=== PATIENT | male | born 1960 | race Caucasian/White ===

== ENCOUNTER 2021-03-19 07:16 | Outpatient (RCR) | payer OTHER, SELFPAY ==
[2021-03-05 10:00] VITALS: BMI 30.3
== END 2021-04-01 15:07 | disposition home or self-care (01) ==
LOC: ANHWOC 07:16
PROVIDERS: PCP Internal Medicine; Visit Provider Internal Medicine
DX: T22.21 Burn of second degree of forearm (principal)
CPT/HCPCS: 99211; 99212; A9270; G0463

== ENCOUNTER 2021-10-10 00:41 | Day surgery (SDC) | payer OTHER, SELFPAY ==
[2021-09-24 15:48] VITALS: BMI 29.6
[2021-10-10 07:15] VITALS: BP 116/77; PULSE 93; RESP 18; TEMP 36.4; O2SAT 98
[2021-10-10] MEDS: LACTATED RINGERS 1,000 ML 150 ML IV CONT (07:26)
--- NOTE | 2021-10-10 07:56 | P.CONGI_ITS ---
Assessment and Plan Assessment and plan (1) Encounter for screening colonoscopy: Code(s): Z12.11 - Encounter for screening for malignant neoplasm of colon Status: Acute Assessment and Plan: Patient presents today for screening colonoscopy. Appears to be at average risk for colon polyps. Further recommendations will be given after endoscopy. GI Consult Note Consult date/time: 10/10/21 07:56 Reason for consult: Neoplasia screening. HPI: Paras Coreas III is a 61 year old male Presents for screening colonoscopy. Patient's current weight appetite and bowel movements are normal. He denies abdominal pain. He has had no bleeding. Family history is significant on [place] has had colon cancer. Patient presents today for screening colonoscopy. Review of Systems Review of Systems: Review of systems noncontributory. [facility] Surgical History Surgical History History of back surgery October 2019 Family History Family History Sibling Patient's sister is in good health Patient's brother is in good health Father Cerebrovascular accident Family history of heart disease in male family member before age 55 Patient's father is Mother Patient's mother is Social History Social History Smoking status: Never smoker Second hand tobacco smoke exposure: No Alcohol intake: never Substance use: never Substance use type: does not use Living arrangements: alone Spiritual care concerns: No Meds Home Medications and Allergies Home Medications Medication Instructions Recorded Confirmed Type multivitamin (Multiple Vitamins 1 tablet PO DAILY 04/12/19 10/10/21 History tablet) clonazepam 0.5 mg tablet 0.5 mg PO DAILY PRN Anxiety 02/26/21 10/10/21 History hydroxyzine HCl 25 mg tablet 25 mg PO BID PRN Allergy Symptoms 02/26/21 10/10/21 History pantoprazole 40 mg tablet,delayed 40 mg PO QAM #90 tabs 06/30/21 10/10/21 Rx release (Protonix) naproxen 500 mg tablet 500 mg PO BID #60 tabs 08/28/21 10/10/21 Rx quetiapine 100 mg tablet (Seroquel) 200 mg PO QHS 08/28/21 10/10/21 History terbinafine HCl 250 mg tablet 250 mg PO DAILY 08/28/21 10/10/21 History lisinopril 40 mg tablet 40 mg PO DAILY #90 tabs 09/11/21 10/10/21 Rx finasteride 5 mg tablet 5 tablet PO DAILY 09/24/21 10/10/21 History Allergies Allergy/AdvReac Type Severity Reaction Status Date / Time No Known Allergies Allergy Verified 10/10/21 07:14 Vital Signs Vital Signs - 24 hr 10/10/21 07:15 Temperature 97.5 F L Pulse Rate 93 Respiratory Rate 18 Blood Pressure 116/77 Pulse Oximetry 98 Oxygen Delivery Room Air Exam Narrative: Physical exam reveals patient to be alert. Vital signs stable. HEENT exam is unremarkable. Patient is anicteric. Lungs are clear to auscultation and percussion. Heart is without murmur or extra sounds. Abdominal exam bowel sounds present soft nontender with no organomegaly. Digital external rectal exam is normal.
--- NOTE | 2021-10-10 08:12 | WPDANESEPPF ---
Anes - Initial Pre Proc Eval Procedure: Operation Date: 10/10/21 08:30 Proposed Procedures p Screening Colonoscopy - Davy Lucio MD Date/Time: 10/10/21 08:12 Surgeon: Davy Lucio MD Pre Op Diagnosis: neoplasm screening Patient Data Age: 61 Gender: M Height: 1.75 m Weight: 89.4 kg Last Vital Signs Temp 97.5 F L 10/10/21 07:15 Pulse 93 10/10/21 07:15 Resp 18 10/10/21 07:15 BP 116/77 10/10/21 07:15 Pulse Ox 98 10/10/21 07:15 O2 Del Method Room Air 10/10/21 07:15 Allergies Allergy/AdvReac Type Severity Reaction Status Date / Time No Known Allergies Allergy Verified 10/10/21 07:14 Home Medications Medication Instructions Recorded Confirmed Type multivitamin (Multiple Vitamins 1 tablet PO DAILY 04/12/19 10/10/21 History tablet) clonazepam 0.5 mg tablet 0.5 mg PO DAILY PRN Anxiety 02/26/21 10/10/21 History hydroxyzine HCl 25 mg tablet 25 mg PO BID PRN Allergy Symptoms 02/26/21 10/10/21 History pantoprazole 40 mg tablet,delayed 40 mg PO QAM #90 tabs 06/30/21 10/10/21 Rx release (Protonix) naproxen 500 mg tablet 500 mg PO BID #60 tabs 08/28/21 10/10/21 Rx quetiapine 100 mg tablet (Seroquel) 200 mg PO QHS 08/28/21 10/10/21 History terbinafine HCl 250 mg tablet 250 mg PO DAILY 08/28/21 10/10/21 History lisinopril 40 mg tablet 40 mg PO DAILY #90 tabs 09/11/21 10/10/21 Rx finasteride 5 mg tablet 5 tablet PO DAILY 09/24/21 10/10/21 History Patient hx anesthesia problems: none Family hx anesthesia problems: none Results Review: All pre-operative results and documents have been reviewed as part of the pre-operative evaluation. [facility] Surgical History Surgical History History of back surgery October 2019 Family History Family History Sibling Patient's sister is in good health Patient's brother is in good health Father Cerebrovascular accident Family history of heart disease in male family member before age 55 Patient's father is Mother Patient's mother is Social History Social History Smoking status: Never smoker Second hand tobacco smoke exposure: No Alcohol intake: never Substance use: never Substance use type: does not use Living arrangements: alone Spiritual care concerns: No Anes - Eval Final PreProcedure Day of Procedure 10/10/21 08:12 Patient weight: overweight Heart: regular rate and rhythm Lungs: clear to auscultation Airway: Mallampati scale class II Neurological: alert and oriented Last oral intake: >/= 8 hours ASA classification: II Emergent: no Anesthetic plan: proceed Anesthesia type and monitoring: general GIVS and standard monitoring Results Review: All pre-operative results and documents have been reviewed as part of the pre-operative evaluation. Informed Consent: The patient's anesthetic plan and its attendant risks and benefits were discussed with the patient/family/POA. Questions were solicited and answers provided to the satisfaction of the patient/family/POA.
[2021-10-10 09:03] VITALS: BP 115/70; PULSE 73; RESP 20; O2SAT 97
[2021-10-10 09:13] VITALS: BP 116/75; PULSE 72; RESP 23; O2SAT 96
[2021-10-10 09:23] VITALS: BP 125/81; PULSE 74; RESP 24; O2SAT 97
== END 2021-10-10 09:33 | disposition home or self-care (01) ==
PROVIDERS: PCP Internal Medicine; Visit Provider Internal Medicine Gastroenterology
PROC: 0DJD8ZZ Inspection of Lower Intestinal Tract, Via Natural or Artificial Opening Endoscopic (ICD-10-PCS; CPT 45378; principal; 2021-10-10 08:30)
DX: Z12.11 Encounter for screening for malignant neoplasm of colon (principal); K64.8 Other hemorrhoids; K57.30 Diverticulosis of large intestine without perforation or abscess without bleeding
CPT/HCPCS: 45378; J2704; J7120

== ENCOUNTER 2022-05-20 14:36 | Outpatient (CLI) | payer OTHER, SELFPAY ==
[2022-05-20 15:48] LABS: Influenza A QL RT-PCR Negative (Negative); Influenza B QL RT-PCR Negative (Negative)
== END 2022-05-20 14:37 | disposition home or self-care (01) ==
LOC: ANHLAB 14:37
PROVIDERS: PCP Internal Medicine; Visit Provider Internal Medicine
DX: R50.9 Fever, unspecified (principal)
CPT/HCPCS: 87502

== ENCOUNTER 2022-06-24 11:47 | Outpatient (CLI) | payer OTHER, SELFPAY ==
--- NOTE | ~2022-06-24 | XR_ITS ---
Right elbow Technique: AP, oblique, and lateral views were obtained. Clinical History: Osteoarthritis Findings: No acute fracture or dislocation is seen. Osseous alignment is anatomic. Joint spaces are p reserved. There is enthesopathic change at the lateral epicondyle region. There is no displacement of the fat pads, and soft tissues are unremarkable. Impression: Enthesopathic change of the lateral epicondyle of the humerus. Reviewed, dictated and finalized at location M. GER DECISION SUPPORT Impression: Enthesopathic change of the lateral epicondyle of the humerus.
--- NOTE | ~2022-06-24 | XR_ITS ---
Left elbow Technique: AP, oblique, and lateral views were obtained. Clinical History: Osteoarthritis Findings: No acute fracture or dislocation is seen. Osseous alignment is anatomic. Joint spaces are p reserved. There is no displacement of the fat pads, and soft tissues are unremarkable. Impression: Unremarkable radiographs. Reviewed, dictated and finalized at location . ROOM COORDINATOR Impression: Unremarkable radiographs.
--- NOTE | ~2022-06-24 | XR_ITS ---
EXAMINATION: XR chest 2V 06/24/2022 12:21 INDICATION: Cough for one year. Hypertension. PROCEDURE: 2 view chest COMPARISON: No prior studies for comparison. FINDINGS: The lungs are clear. The cardiomediastinal silhouette is within normal limits. There are no pleural effusions. There is no pneumothorax suspected. IMPRESSION: 1: NO ACUTE CARDIOPULMONARY DISEASE. Reviewed, dictated and finalized at location L. TIE TURNER
--- NOTE | ~2022-06-24 | XR_ITS ---
AP and oblique views of the SI joints CLINICAL HISTORY: Chronic pain FINDINGS: Lumbosacral spinal fixation hardware is present, including posterior rods extending from th e visualized lumbar spine through the mid sacrum with transpedicular screws present. Bilateral sacral bones are also present. Visualized SI joints otherwise are unremarkable. Bilateral hip joints appear intact. Soft tissues are unremarkable. IMPRESSION: Extensive lumbosacral spinal fixation hardware. No intrinsic abnormality of the SI joints identified otherwise. Reviewed, dictated and finalized at location . RNATIONAL RECRUITER
--- NOTE | ~2022-06-24 | XR_ITS ---
Left foot Technique: AP and lateral standing views were obtained. Clinical History: Osteoarthritis Findings: No acute fracture or dislocation is seen. Osseous alignment is anatomic. Joint spaces are p reserved without erosive or degenerative change. Soft tissues are unremarkable. Impression: Unremarkable left foot radiographs. Reviewed, dictated and finalized at location . LEADER Impression: Unremarkable left foot radiographs.
--- NOTE | ~2022-06-24 | XR_ITS ---
Bilateral Hands Technique: PA, oblique, and lateral views, and ball-catcher's view were obtained. Clinical History: Osteoarthritis Findings: No acute fracture or dislocation is seen. Osseous alignment is anatomic. Joint spaces are p reserved. Soft tissues are unremarkable. Impression: Unremarkable bilateral hand radiographs. Reviewed, dictated and finalized at location . NTIFIC ARTIST Impression: Unremarkable bilateral hand radiographs.
--- NOTE | ~2022-06-24 | XR_ITS ---
Right foot Technique: AP and lateral standing views were obtained. Clinical History: Osteoarthritis Findings: No acute fracture or dislocation is seen. Osseous alignment is anatomic. There is minimal d egenerative change at the first MTP joint.. Remaining joint spaces are preserved. Soft tissues are un remarkable. Impression: Minimal degenerative change at the first MTP joint. Reviewed, dictated and finalized at location . DRY MARKER SUPERVISOR Impression: Minimal degenerative change at the first MTP joint.
== END 2022-06-24 11:48 | disposition home or self-care (01) ==
PROVIDERS: PCP Physician Assistant; Visit Provider Internal Medicine
DX: M19.90 Unspecified osteoarthritis, unspecified site (principal); R05.9 Cough, unspecified; Z98.1 Arthrodesis status
CPT/HCPCS: 71046; 72202; 73080; 73130; 73620

== ENCOUNTER 2022-11-18 11:22 | Emergency (ER) | payer OTHER, SELFPAY ==
--- NOTE | 2022-11-18 11:27 | ED.SKABFB ---
HPI - Skin/Abscess/Foreign Bdy General Chief complaint: Skin/Abscess/Foreign Body Stated complaint: Toe nail on right foot is pussing Time Seen by Provider: 11/18/22 11:27 Source: patient Mode of arrival: ambulatory Limitations: no limitations History of Present Illness HPI narrative: Patient is a 62-year-old male who presents with drainage under left big toenail. Patient states a few days ago he cut his toenail and started noticing the drainage then. Patient states the pain is only present when wearing shoes. Denies any pain to joints in toe. Does report mild redness around toenail but denies any swelling. Patient is still able to ambulate normally. Patient has podiatry appointment in 3 or 4 weeks. Denies any fever, chills, nausea, vomiting, diarrhea. Denies any redness streaking up the foot. Related Data Home Medications Medication Instructions Recorded Confirmed multivitamin (Multiple Vitamins 1 tablet PO DAILY 04/12/19 11/18/22 tablet) clonazepam 0.5 mg tablet 0.5 mg PO DAILY PRN Anxiety 02/26/21 11/18/22 quetiapine 100 mg tablet (Seroquel) 200 mg PO QHS 08/28/21 11/18/22 ciclopirox 8 1 ml topical DIRECTED 08/19/22 11/18/22 %-xrak-bnasxsj-suppyfj-eucalyptol topical solution (Ciclodan Kit) gabapentin 300 mg capsule 300 mg PO TID 08/19/22 11/18/22 Allergies Allergy/AdvReac Type Severity Reaction Status Date / Time No Known Allergies Allergy Verified 08/19/22 13:01 Review of Systems Review of Systems: All systems reviewed & are unremarkable except as noted in HPI and below Constitutional: Constitutional: Denies body ache(s), Denies chills, Denies fatigue, Denies fever(s), Denies headache(s), Denies malaise and Denies weakness Eyes: Eyes: Denies blurry vision, Denies irritation and Denies loss of vision ENT: Denies otalgia, Denies headache(s), Denies nasal discharge, Denies sinus pain and Denies sore throat Cardiovascular: Cardiovascular: Denies chest pain, Denies irregular heart rhythm and Denies dyspnea Respiratory: Respiratory: Denies dyspnea Gastrointestinal: Gastrointestinal: Denies abdominal pain, Denies melena, Denies hematochezia, Denies diarrhea, Denies nausea and Denies vomiting Musculoskeletal: Musculoskeletal: Denies back pain, Denies myalgias and Denies arthralgias Integumentary/Breasts: Skin/Breast: Denies pruritus, Reports nail changes and Denies rash Neurologic: Denies headache(s), Denies loss of vision and Denies weakness Psychiatric: Psychiatric: Reports no additional psychiatric complaints Endocrine: Endocrine: Denies fatigue [facility] Past Medical History Medical History MURRAY positive Bilateral hand pain Inflammatory arthritis Onycholysis Seronegative rheumatoid arthritis of multiple sites Surgical History Surgical History History of back surgery October 2019 Family History Family History Sibling Patient's sister is in good health Patient's brother is in good health Father Cerebrovascular accident Family history of heart disease in male family member before age 55 Patient's father is Mother Patient's mother is Social History Social History Smoking status: Never smoker Second hand tobacco smoke exposure: No Alcohol intake: never Substance use: never Substance use type: does not use Lack of Transportation: No Lack of Food: Never True Current Housing: I Do Not Have Housing Concerned About Future Housing: No Difficulty Paying Gas/Electric Bills: No Difficulty Paying for Meds: No Currently Unemployed: No Education: High School Diploma/GED Difficulty w/ Childcare or Family Care: No Living arrangements: alone Spiritual care concerns: No Comments At time of signature, agree with
[2022-11-18 11:35] VITALS: BP 136/84; PULSE 85; RESP 16; TEMP 36.5; O2SAT 97
== END 2022-11-18 11:55 | disposition home or self-care (01) ==
PROVIDERS: Emergency Provider Nurse Practitioner Family; PCP Internal Medicine
DX: L03.031 Cellulitis of right toe (principal); M13.80 Other specified arthritis, unspecified site; M06.09 Rheumatoid arthritis without rheumatoid factor, multiple sites
CPT/HCPCS: 99213; G0463

== ENCOUNTER 2023-04-27 03:21 | Emergency (ER) | payer MEDICARE, SELFPAY ==
--- NOTE | ~2023-04-27 | CT_ITS ---
EXAMINATION: CTA chest PE protocol DATE: 04/27/2023 07:53 INDICATION: Shortness of breath. Elevated d-dimer. Anxiety. TECHNIQUE: Computed tomography angiography (CTA) of the chest was performed with 100 mL Omnipaque-350 intravenous contrast timed to evaluate the pulmonary arteries. Coronal maximum intensity projection 3D-reconstructions were created by the technologist. Automated exposure control and iterative reconst ruction technique were employed. Exam dose: 951.04 mGy-cm total exam DLP. COMPARISON: 04/27/2023 portable AP chest FINDINGS: There is diagnostic contrast enhancement of the pulmonary arteries and no evidence of pulmo nary embolism. Heart size is within normal range. Coronary artery atherosclerotic calcification is noted. No pericar dial or pleural effusion. No thoracic aortic aneurysm or dissection. No hilar or mediastinal mass lesion or lymphadenopathy. Small sliding hiatal hernia. Minimal bilateral lower lobe atelectasis. The lungs are clear of infiltrate or consolidation. Mild colonic diverticulosis. Normal morphology of the adrenal glands. Diffuse idiopathic skeletal hyperostosis of the thoracic spine. IMPRESSION: No evidence of pulmonary embolism Minimal bilateral lower lobe atelectasis Small sliding hiatal hernia Colonic diverticulosis Reviewed, dictated and finalized at Location A. Reviewed, dictated and finalized at location A. OPERATOR
--- NOTE | ~2023-04-27 | XR_ITS ---
XR chest 1V portable DATE: 04/27/2023 06:11 INDICATION: Shortness of breath. Anxiety. TECHNIQUE: 2 portable upright AP views on 04/27/2023 at 0604 hours COMPARISON: June 24, 2022 2 view chest FINDINGS: No pulmonary infiltrate or consolidation, pleural effusion or pulmonary vascular congestion or pneumothorax is detected. Heart size appears within normal range. Diffuse idiopathic skeletal hyperostosis of the thoracic spine. Pedicle screws and rods are noted in the lumbar spine. IMPRESSION: No active cardiopulmonary disease Reviewed, dictated and finalized at location A. TICAL SCIENCE PROFESSOR
[2023-04-27 03:25] VITALS: BP 167/105; PULSE 102; RESP 22; TEMP 37.1; O2SAT 96
[2023-04-27 04:11] VITALS: BP 164/97; PULSE 104; RESP 24; O2SAT 97
[2023-04-27 04:53] VITALS: BP 141/90; PULSE 93; RESP 19; O2SAT 96
--- NOTE | 2023-04-27 05:16 | ED.ANXIETY ---
HPI - Anxiety General Chief Complaint: Anxiety Stated Complaint: Anxiety, SOB Time Seen by Provider: 04/27/23 05:14 Source: patient and family (daughter) Mode of arrival: ambulatory Limitations: no limitations History of Present Illness HPI narrative: 63 yo with PMH depression and anxiety, rheumatoid arthritis and lupus presents with shortness of breath. It is at rest, not on exertion. Has been taking prescribed medications without relief. Also generally dry cough occasionally with sputum. No paroxysmal nocturnal dyspnea but describes orthopnea. No chest pain. Denies lower extremity edema. Complaining of joint pain. Meds = gabapentin, tamsulosin, comazepam, losartan, pantop, lamotril, hydrochlorothiazide, Zolpidem, methotrexate PCP Rosalba Related Data Home Medications Medication Instructions Recorded Confirmed multivitamin (Multiple Vitamins 1 tablet PO DAILY 04/12/19 04/07/23 tablet) clonazepam 0.5 mg tablet 0.5 mg PO DAILY PRN Anxiety 02/26/21 04/07/23 tamsulosin 0.4 mg capsule 0.4 mg PO DAILY 03/17/23 04/07/23 Allergies Allergy/AdvReac Type Severity Reaction Status Date / Time No Known Allergies Allergy Verified 04/29/23 15:19 [facility] Past Medical History Medical History (Updated 04/30/23 @ 20:22 by Hollie Rios MD) MURRAY positive Anxiety Bilateral hand pain Degenerative joint disease (DJD) of lumbar spine Depression Inflammatory arthritis Lupus Onycholysis Seronegative rheumatoid arthritis of multiple sites Surgical History Surgical History History of back surgery October 2019 Family History Family History Sibling Patient's sister is in good health Patient's brother is in good health Father Cerebrovascular accident Family history of heart disease in male family member before age 55 Patient's father is Mother Patient's mother is Social History Social History (Updated 04/30/23 @ 20:25 by Hollie Rios MD) Social History: Has a daughter Smoking status: Never smoker Second hand tobacco smoke exposure: No Alcohol intake: never Substance use: never Substance use type: does not use Lack of Transportation: No Lack of Food: Never True Current Housing: I Do Not Have Housing Concerned About Future Housing: No Difficulty Paying Gas/Electric Bills: No Difficulty Paying for Meds: No Currently Unemployed: No Education: High School Diploma/GED Difficulty w/ Childcare or Family Care: No Living arrangements: alone Occupation/Education: occupation 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 HEAD: Normocephalic, atraumatic. EYES: Non injected, non icteric ENT: Nares clear, no rhinorrhea or epistaxis. NECK: Supple. CHEST: Clear to auscultation. No respiratory distress but mildly tachypneic. HEART: Tachycardic rate and rhythm. . ABDOMEN: Soft, nondistended. EXTREMITIES: Normal range of motion. 2+ bilateral pitting edema. SKIN: Warm, dry, no rash. NEURO: No focal deficits. Alert and oriented x3. PSYCH: Normal mood and affect. Course Vital Signs Vital signs: Vital Signs Temperature 98.8 F 04/27/23 03:25 Pulse Rate 102 H 04/27/23 03:25 Respiratory Rate 22 H 04/27/23 03:25 Blood Pressure 167/105 H 04/27/23 03:25 Pulse Oximetry 96 04/27/23 03:25 Oxygen Delivery Room Air 04/27/23 03:25 Temperature 98.8 F 04/27/23 03:25 Pulse Rate 93 04/27/23 04:53 Respiratory Rate 19 04/27/23 04:53 Blood Pressure 141/90 H 04/27/23 04:53 Pulse Oximetry 96 04/27/23 07:56 Oxygen Delivery Room Air 04/27/23 07:56 MDM - Anxiety MDM Narrative Medical decision making narrative: Patient presents with anxiety and shortness of breath. Lungs
--- NOTE | 2023-04-27 05:39 | ECG_ITS ---
Measurements Intervals Pioneer Rate: 97 P: 66 MT: 154 QRS: 71 QRSD: 97 T: 15 QT: 336 QTc: 428 Interpretive Statements SINUS RHYTHM POSSIBLE RIGHT ATRIAL ENLARGEMENT [0.25mV P WAVE] LEFT ATRIAL ENLARGEMENT [-0.15mV P WAVE IN V1/V2] NONSPECIFIC T-WAVE ABNORMALITY NO PREVIOUS ECG AVAILABLE FOR COMPARISON Electronically Signed On 04-27-2023 13:52:08 SURVEY TECHNICIAN by Kita Erazo M.D.
[2023-04-27 06:06] LABS: Basophils Absolute Auto 0.1 K/mm3 (0.0-0.1); Basophils Percent Auto 0.9 % (0.2-1.2); Eosinophils Absolute Auto 0.2 K/mm3 (0-0.3); Eosinophils Percent Auto 1.9 % (0-4.4); Hematocrit 52.8 % (42.0-52.0); Hemoglobin 16.5 g/dL (14.0-18.0); Immature Granulocyte Absolute 0.05 K/mm3 (0.00-0.031); Immature Granulocyte Percent A 0.6 % (0-0.5); Lymphocytes Absolute Auto 1.78 K/mm3 (0.9-3.2); Lymphocytes Percent Auto 23.1 % (18.3-44.2); Mean Corpuscular HGB Conc 31.3 g/dl (32-36); Mean Corpuscular Hemoglobin 26.9 pg (26-34); Mean Corpuscular Volume 86.1 fl (80-100); Mean Platelet Volume 9.5 fl (7.4-10.4); Monocytes Absolute Auto 0.8 K/mm3 (0.1-0.6); Monocytes Percent Auto 10.8 % (2.6-8.5); Neutrophils Absolute Auto 4.8 K/mm3 (1.3-6.7); Neutrophils Percent Auto 62.7 % (45.5-73.1); Platelet Count Result 231 k/mm3 (150-375); Red Blood Count 6.13 M/mm3 (4.6-6.20); Red Cell Distribution Width 14.3 % (11.5-14.5); White Blood Count 7.7 K/mm3 (4.5-10.0)
[2023-04-27 06:08] LABS: Appearance Urine Clear (Clear); Bilirubin Urine Negative (Negative); Blood Urine Negative (Negative); Color Urine Yellow (Yellow); Glucose Urine UA Negative (Negative); Ketones Urine Negative (Negative); Leukocyte Esterase Ur Negative LEU/UL (Negative); Nitrate Urine Negative (Negative); Protein Urine Negative (Negative); Specific Grav Ur 1.021 (1.001-1.035); Urobilinogen Urine 0.2 mg/dL (<2.0)
[2023-04-27 06:19] LABS: Alanine Aminotransferase 39 U/L (6-50); Albumin Level 4.2 g/dL (3.5-5.1); Alkaline Phosphatase 80 U/L (38-126); Anion Gap 7 mmol/L (8-16); Aspartate Amino Transferase 46 U/L (17-59); Bilirubin,Total 0.5 mg/dL (0.2-1.3); Blood Urea Nitrogen 10 mg/dL (9-20); Calcium 8.7 mg/dL (8.4-10.2); Carbon Dioxide 27 mmol/L (22-30); Chloride 105 mmol/L (98-107); Estimated CRCL calculation 111 ml/min; Estimated Glomerular Filt Rate > 60; Glucose 100 mg/dL (65-110); Magnesium 1.9 mg/dL (1.6-2.3); Potassium 4.7 mmol/L (3.4-5.0); Sodium 139 mmol/L (137-145)
[2023-04-27 06:29] LABS: NT Pro B Type Natriuretic Pept 32 pg/mL (19.9-100); Troponin I < 0.012 ng/mL (0.000-0.034)
[2023-04-27 06:43] LABS: Influenza A QL RT-PCR Negative (Negative); Influenza B QL RT-PCR Negative (Negative); RSV RNA, RT-PCR Negative (Negative); SARS-CoV-2 RNA PCR Negative (Negative)
[2023-04-27 06:52] LABS: Add Urine Microscopic? NO
[2023-04-27 07:11] LABS: Amphetamine Screen Urine Negative (Negative); Barbiturate Screen Urine Negative (Negative); Benzodiazepines Screen Urine Negative (Negative); Cannabinoid Screen Urine Negative (Negative); Cocaine Screen Urine Negative (Negative); Methadone Screen Urine Negative (Negative); Opiate Screen Urine Negative (Negative); Phencyclidine Screen Urine Negative (Negative)
[2023-04-27 07:13] LABS: D Dimer 0.54 ug/mL (<0.48)
[2023-04-27 07:56] VITALS: O2SAT 96
--- NOTE | 2023-04-27 08:01 | PC.NURSE ---
Pt abd distended, tender at operative site. Bowel sound hypoactive. Pt denies nausea
== END 2023-04-27 08:27 | disposition home or self-care (01) ==
PROVIDERS: Emergency Provider Student in an Organized Health Care Education/Training Program; PCP Internal Medicine
DX: R06.00 Dyspnea, unspecified (principal); M06.09 Rheumatoid arthritis without rheumatoid factor, multiple sites; M32.9 Systemic lupus erythematosus, unspecified; Z79.631 Long term (current) use of antimetabolite agent; F32.A Depression, unspecified; F41.9 Anxiety disorder, unspecified; Z79.85 Long-term (current) use of injectable non-insulin antidiabetic drugs; Z20.822 Contact with and (suspected) exposure to COVID-19; Z79.899 Other long term (current) drug therapy
CPT/HCPCS: 36415; 71045; 71275; 80053; 80307; 81003; 83735; 83880; 84443; 84484; 85025; 85380; 87637; 93005; 99284; Q9967

== ENCOUNTER 2023-05-11 09:07 | Outpatient (CLI) | payer MEDICARE, SELFPAY ==
--- NOTE | 2023-06-01 15:11 | WPDSLEEPSTUD ---
Sleep Study Date of Study: 05/11/23 Ordering Provider: Eric Manuel MD Interpreting Physician: Blank Casas DO Sleep Study Type: Split Polysomnogram Height: 1.75 m Weight: 111.13 kg Body Mass Index: 36.1 Neck Circumference (inches): 18.25 [place]: 9 Reason for Sleep Study Snoring, daytime hypersomnia Sleep History The patient is a 63 year old male with anxiety, depression, lupus and seronegative arthritis that had a sleep study ordered by his systems test engineer for evaluation of sleep apnea. The patient frequently awakens from sleep short of breath. He rarely awakens at night with heartburn, belching or cough. He occasionally snores and is occasionally loud enough others complain. He rarely has trouble sleeping when he has a cold. He frequently wakes up gasping for air throughout the night. He frequently has breathing problems at night observed by himself or others. He occasionally sweats excessively at night. He rarely has heart palpitations or irregular heartbeats during the night. He occasionally falls asleep during the day rarely falls asleep while driving. He occasionally experiences loss of muscle tone when extremely emotional. He occasionally has trouble at school or work due to sleepiness. He frequently feels unable to move while waking up or falling asleep. He rarely experiences vivid dreamlike scenes upon awakening or falling asleep. He occasionally feels afraid of going to sleep. He denies having nightmares and denies remembering his dreams. He frequently has thoughts racing through his mind. He constantly feels sad, depressed And anxious. He rarely has muscular tension. He frequently notices parts of his body jerk. He rarely kicks during the night. He frequently has crawling and aching feelings in his legs and constantly has leg pain during the night. He denies grinding his teeth during sleep and denies awakening with morning jaw pain. He is constantly bothered by pain during the day and constantly awakened by pain during night. He frequently wakes up feeling stiff in the morning. He frequently wakes up with sore or achy muscles. He constantly wakes up with pain in the neck, spine and other joints. He goes to bed at 4:00 p.m. on both weekdays and weekends. It takes him 1 hour to fall asleep. He wakes up 5 times throughout the night and when he awakens he will walk around in circles. He can take and 30 to 60 minutes to fall back asleep. He wakes up at 4:30 a.m. on both weekdays and weekends. He typically gets 8 hours of sleep per night. He will stay in bed for 3 hours after waking up in the morning. He currently lives alone. He denies consuming any caffeinated beverages within 2 hours of bedtime. He denies engaging in physical exercise before bedtime. He denies reading and watching television before falling asleep. He will take naps in the afternoon or the evening but they refreshing. He consumes 40 oz of caffeinated beverage per day. He denies tobacco, alcohol and recreational drug use. [facility] Past Medical History Medical History MURRAY positive Anxiety Bilateral hand pain Degenerative joint disease (DJD) of lumbar spine Depression Inflammatory arthritis Lupus Onycholysis Seronegative rheumatoid arthritis of multiple sites Surgical History Surgical History History of back surgery October 2019 Family History Family History Sibling Patient's sister is in good health Patient's brother is in good health Father Cerebrovascular accident Family history of heart disease in male family member before age 55 Patient's father is Mother Patient's mother is Social History Social History Social History: Has a daughter Kira
[2023-06-01 15:22] VITALS: BMI 36.1
== END 2023-05-12 04:24 | disposition home or self-care (01) ==
PROVIDERS: PCP Internal Medicine; Visit Provider Internal Medicine Pulmonary Disease
DX: G47.33 Obstructive sleep apnea (adult) (pediatric) (principal)
CPT/HCPCS: 95811

== ENCOUNTER 2023-05-27 07:44 | Outpatient (CLI) | payer MEDICARE, SELFPAY ==
--- NOTE | 2023-05-28 13:44 | WPDPFTINT ---
PFT Procedure Performed PFT Procedure Performed Spirometry with Pre/Post Bronchodilator Plethysmography (Lung Vol) Diffusing Cap (DLCO) Flow Vol Loop PFT Interpretation Lung volumes were measured with the body plethysmography method. Lung volumes are unremarkable spirometry showed normal expiratory flow rates and a normal FEV1 to FVC ratio 78%. Following administration of a bronchodilator there was no significant increase in expiratory flow rates. Lung diffusion capacity is within the normal range at 89% predicted. The flow volume loop is unremarkable. Impression: Spirometry, lung volumes, and lung diffusion capacity all within the normal range.
--- NOTE | 2023-05-28 13:47 | WPDSIXMINUTE ---
Six Minute Walk Procedure Procedure Performed Pulmonary Stress Test (6 min walk) Six Minute Walk Six Minute Walk: This 6 minute walk test was carried out with the patient breathing ambient air. The baseline oxyhemoglobin saturation was 93%. The patient walked 3 of 5 m with no stops during testing. During the walk the oxyhemoglobin saturation remained in the range of 91%-95%. Impression: No evidence of oxyhemoglobin desaturation on this testing.
== END 2023-05-27 07:45 | disposition home or self-care (01) ==
PROVIDERS: PCP Internal Medicine; Visit Provider Internal Medicine Pulmonary Disease
DX: R06.02 Shortness of breath (principal)
CPT/HCPCS: 94060; 94618; 94726; 94729

== ENCOUNTER 2023-06-10 10:52 | Outpatient (CLI) | payer MEDICARE, SELFPAY | END 2023-06-10 10:53 | disposition home or self-care (01) | PROVIDERS: PCP Internal Medicine; Visit Provider Internal Medicine Pulmonary Disease | DX: E29.1 Testicular hypofunction (principal); G47.33 Obstructive sleep apnea (adult) (pediatric) | CPT/HCPCS: 36415; 82728 ==

== ENCOUNTER 2024-09-27 15:17 | Outpatient (CLI) | payer MEDICARE, SELFPAY ==
--- NOTE | ~2024-09-27 | XR_ITS ---
3 VIEWS LUMBAR SPINE Ordering provider: Alirio Price MD History: . M96.1 - Postlaminectomy syndrome, not elsewhere classified . Comparison: March 03, 2007 FINDINGS: VERTEBRAL BODIES:Postoperative changes seen at the levels of L3, L4, L5 and S1 No visible fracture or subluxation. Degenerative changes of the spine. DISK SPACES: Narrowing of the disc spaces L2-L3, L3-L4, L4-L5 and L5-S1. SOFT TISSUES: Normal. IMPRESSION: No acute osseous abnormality lumbar spine. Postoperative changes. Reviewed, dictated and finalized at location A.
--- NOTE | ~2024-09-27 | XR_ITS ---
XR hip BI wo pelvis, XR sacroiliac joints min 3V 09/27/2024 15:41 Indication: Spondylosis. Procedure: 2 views each hip and 3 views of the sacroiliac joints Comparison: 06/24/2022 Findings: There changes of lumbar fusion extending to the sacrum with bilateral screws transfixing th e sacroiliac joints. Mild symmetric degenerative changes of the sacroiliac joints. Sacral foramen are otherwise symmetric. There are laminectomy changes in the lower lumbar spine. There is mild symmetri c osteoarthritis of the hips. There is an exostosis originating from the right iliac crest, likely be nign. No acute fracture or traumatic malalignment. 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 Reviewed, dictated and finalized at location A. 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
--- OUTSIDE RECORDS SUMMARY | 2024-09-27 15:22 | XMS_ITS | Clinical Summary ---
Author Organization [facility] Address [address] [place] [id number] Care Team Providers Care Patrol Sergeant Name Role Phone Panchito Jo MD Primary Care Provider [phone] Allergies Active Allergy Reactions Criticality Noted Date Comments No Known Allergies Other (See comments) Low Reaction: Medications pantoprazole DR (PROTONIX) 40 mg EC tabletIndicati ons:Treatment of Non-Bleeding Gastric Disorder,acid reflux Take 1 tablet (40 mg total) by mouth every morning 0 03/24/20 18 Active testosterone cypionate (DEPO-TESTOTER ONE) 200 mg/mL injectionIndic ations:Androge n Deficiency Inject 1.5 mL (300 mg total) into the muscle as instructed every 14 (fourteen) days 04/20/20 19 Active multivit-mins no.63/iron/fol ic (M-VIT ORAL)Indicatio ns:preventive, OTC Take 1 tablet by mouth every morning Active hydrOXYzine (ATARAX) 25 mg tablet Take 1-2 tablets (25-50 mg total) by mouth every 8 (eight) hours as needed for anxiety 90 tablet 11 04/29/20 23 Active losartan (COZAAR) 100 mg tablet Take 1 tablet (100 mg total) by mouth daily Active tamsulosin (FLOMAX) 0.4 mg extended release capsule Take 1 capsule (0.4 mg total) by mouth daily Active anastrozole (ARIMIDEX) 1 mg tablet TAKE 1/2 (ONE-HALF) TABLET BY MOUTH ON THURSDAY, THURSDAY AND Thursday07/31/19 24 Active pregabalin (LYRICA) 100 mg capsule 08/08/19 24 Active sildenafiL, pulm.hypertens ion, (REVATIO) 20 mg tablet TAKE 1 TO 5 TABLETS BY MOUTH ONE HOUR BEFORE SEXUAL ACTIVITY 07/28/19 24 Active hydroxychloroq uine (PLAQUENIL) 200 mg tablet Take 2 tablets (400 mg total) by mouth daily 60 tablet 5 10/05/19 24 Active meloxicam (MOBIC) 7.5 mg tablet Take 1 tablet (7.5 mg total) by mouth daily 30 tablet 11 02/01/20 24 Active Additional Information Patient not taking.Reported on 06/06/2024 clonazePAM (KlonoPIN) 0.5 mg tablet TAKE 1 TABLET BY MOUTH THREE TIMES DAILY NEEDED FOR ANXIETY 60 tablet 2 03/28/20 24 Active zolpidem (AMBIEN) 10 mg tabletIndicati ons:Sleep-Onse t Insomnia Take 1 tablet (10 mg total) by mouth nightly as needed for sleep 30 tablet 2 05/24/19 25 Active hydrOXYzine (ATARAX) 25 mg tabletIndicati ons:anxiety Take 1 tablet (25 mg total) by mouth 4 (four) times a day as needed for anxiety 30 tablet 2 05/24/19 25 Active Contrave 8-90 mg tablet extended release Take 1 tablet by mouth every morning 05/30/19 25 Active lamoTRIgine (LaMICtal) 100 mg tablet Take 1 tablet by mouth once daily 30 tablet 09/13/[address] (CYMBALTA) 60 mg capsule Take 1 capsule by mouth once daily 30 capsule 09/13/19 25 Active lamoTRIgine (LaMICtal) 150 mg tabletIndicati ons:Bipolar Disorder Take 1 tablet (150 mg total) by mouth daily 30 tablet 2 10/05/19 25 Active lamoTRIgine (LaMICtal) 25 mg tabletIndicati ons:Bipolar Disorder Take 1 tablet (25 mg total) by mouth daily for 14 days 14 tablet 09/21/19 25 025 Active lamoTRIgine (LaMICtal) 100 mg tabletIndicati ons:Bipolar Disorder Take 1 tablet (100 mg total) by mouth daily 30 tablet 2 05/24/[address] (CYMBALTA) 60 mg capsule Take 1 capsule by mouth once daily 30 capsule 08/13/19 25 025 Discontinued DULoxetine (CYMBALTA) 60 mg capsule Take 1 capsule by mouth once daily 30 capsule 09/12/19 25 025 Discontinued Active Problems Problem Noted Date Diagnosed Date Other insomnia 04/29/2023 Assessment & Plan (04/29/2023 11:05 AM SLAT GRADER): Not treated for LAUREEN. Has diagnosis on chart, but reports that he has had a sleep study in the past which did not reveal LAUREEN. Takes Ambien and feels it is somewhat beneficial. However, he sleeps when he gets home from work at 1 pm - awakens in a few hours - and overall quality of sleep reported as poor. Would benefit from improving sleep hygiene. Could benefit from CBTi if option available. No change to management at this time. Panic disorder 01/28/2023 Assessment & Plan (04/29/2023 11:02 AM SLAT GRADER): Acute on chronic, persistent. Hydroxyzine effective in the past - he would like to re-start. Start Hydroxyzine as discussed. Also starting Cymbalta 30 mg daily. Monitor in 6 weeks. Call the office if symptoms worsen. Supportive counseling provided to display empathy and validation. Bipolar 1 disorder 12/29/2022 Assessment & Plan (04/29/2023 12:33 PM SLAT GRADER): Chronic, stable. No medication changes at this time. Continue to monitor at interval. Generalized anxiety disorder 12/29/2022 Assessment & Plan (04/29/2023 10:53 AM SLAT GRADER): Acute on chronic, persistent. 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 Continue to monitor at interval. Hypertension 10/07/2019 Hyperlipidemia 10/07/2019 LAUREEN (obstructive sleep apnea) 10/07/2019 Anxiety and depression 10/07/2019 GERD (gastroesophageal reflux disease) 0 Spinal stenosis of lumbar re gion with neurogenic claudication 06/20/2019 Overview (06/20/2019): Added automatically from request for surgery [id number] Spinal stenosis of lumbar region 03/30/2018 Encounters Date Type Department Care Team Description 09/20/2024 4:30 PM CDT Telemedicine [facility] [address] [place] [phone] Sean Mancia MD Bipolar 1 disorder (HCC) (Primary Dx); Panic disorder; Generalized anxiety disorder from Last 3 Months Surgical History Surgery Date Site/Laterality Comments FL UPPER GI AIR CONTRAST W KUB 01/18/2019 Left FL UPPER GI AIR CONTRAST W KUB 02/28/2019 Left KNEE SURGERY Left x2 POSTERIOR LAMINECTOMY / DECO MPRESSION LUMBAR SPINE 03/04/2017 - 04/02/2017 CATARACT EXTRACTION Bilateral COLONOSCOPY UPPER GASTROINTESTINAL ENDOSCOPY Medical History Medical History Date Comments Arthritis Hypertension Anxiety LAUREEN (obstructive sleep apnea) 10/07/2019 Family History Medical History Relation Name Comments Arthritis Father Family history of arthritis - (Added by TW Conv) Heart attack Father Hypertension Father Family history of hypertension - (Added by TW Conv) Stroke Father Arthritis Mother Family history of arthritis - (Added by TW Conv) Hypertension Mother Family history of hypertension - (Added by TW Conv) Heart attack Paternal Grandfather Relation Name Status Comments Father Mother Paternal Grandfather Social History Tobacco Use Types Packs/Day Years Used Date Smoking Tobacco: Never Smokeless Tobacco: Never Tobacco Cessation:Counseling Given: Not Answered Alcohol Use Standard Drinks/Week Comments Not Currently 0 (1 standard drink = 0.6 oz pur e alcohol) Social Connection and Isolat ion Panel [NHANES] Answer Date Recorded In a typical week, how many times do you talk on the phone with family, friends, or neighbors? Twice a week 10/05/2023 How often do you get togethe r with friends or relatives? Once a week 10/05/2023 How often do you attend chur ch or mandaen services? More than 4 times per year 10/05/2023 Do you belong to any clubs o r organizations such as anglican groups, unions, fraternal or athletic groups, or school groups? No 10/05/2023 How often do you attend meet ings of the clubs or organizations you belong to? Not asked 10/05/2023 Are you , , di vorced, , never , or living with a partner? 10/05/2023 AUDIT-C Answer Date Recorded Q1: How often do you have a drink containing alc ohol? Monthly or less 08/01/2019 Q2: How many drinks containi ng alcohol do you have on a typical day when you are drinking? 1 or 2 08/01/2019 Q3: How often do you have si x or more drinks on one occasion? Never 08/01/2019 Overall Financial Resource Strain (CARDIA) Answe r Date Recorded How hard is it for you to pa y for the very basics like food, housing, medical care, and heating? Not hard at all 10/05/2023 PHQ-2 Answer Date Recorded Patient Health Questionnaire-2 Score 6 10/05/2023 [facility] [place] [facility] Occupat ional Health - Occupational Stress Questionnaire Answer Date Recorded Do you feel stress - tense, restless, nervous, or anxious, or unable to sleep at night because your mind is troubled all the time - these days? Very much 10/05/2023 Exercise Vital Sign Answer Date Recorde d On average, how many days pe r week do you engage in moderate to strenuous exercise (like a brisk walk)? 0 days 10/05/2023 On average, how many minutes do you engage in exercise at this level? 0 min 10/05/2023 Hunger Vital Sign Answer Date Recorded Within the past 12 months, y ou worried that your food would run out before you got the money to buy more. Never true 10/05/19 24 Within the past 12 months, t he food you bought just didn't last and you didn't have money to get more. Never true 10/05/2023 PRAPARE - Transportation Answer Date Re corded In the past 12 months, has l ack of transportation kept you from medical appointments or from getting medications? No 07/2023 In the past 12 months, has l ack of transportation kept you from meetings, work, or from getting things needed for daily living? No 10/05/2023 Housing Stability Vital Sign Answer Jordon e Recorded In the last 12 months, was t here a time when you were not able to pay the mortgage or rent on time? No 08/17/2023 In the last 12 months, how many places have you lived? 1 08/17/2023 In the last 12 months, was t here a time when you did not have a steady place to sleep or slept in a correction (including now)? No 08/17/2023 Personal Safety Answer Date Recorded Have you ever been in or are you currently in a harmful physical or emotional relationship or is someone making you feel afraid or unsafe? Denies 11/18/2022 Sex and Gender Information Value Date Recorded Sex Assigned at Not on file Legal Sex Male 3:35 AM SLAT GRADER Gender Identity Male 09/16/2022 11:22 AM CDT Sexual Orientation Straight 09/16/2022 11 :21 AM CDT Obstetrics History Last Filed Vital Signs Vital Sign Reading Time Taken Comments Blood Pressure 137/74 06/06/2024 9:20 AM SLAT GRADER Pulse 77 06/06/2024 9:20 AM SLAT GRADER Temperature 36.8 C (98.2 F) 06/06/2024 9:20 AM SLAT GRADER Respiratory Rate 14 11/18/2022 10:2 0 AM CDT Oxygen Saturation 96% 06/06/2024 9:20 AM SLAT GRADER Inhaled Oxygen Concentration - - Weight 103.7 kg (228 lb 9.6 oz) 06/06/2024 9:20 AM SLAT GRADER Height 175.3 cm (5' 9 ) 06/06/2024 9:20 AM SLAT GRADER Body Mass Index 33.76 06/06/2024 9:20 AM SLAT GRADER Plan of Treatment Health Maintenance Due Date Last Done Comments Hepatitis C Screening 1960 Prostate Cancer Screening-PSA 1960 DTaP/Tdap/Td Vaccine (1 - Tdap) 1969 Hepatitis B Screening 1976 Pneumococcal vaccine 65+ (1 of 2 - PCV) 1977 Zoster Vaccine (1 of 2) 1977 Colon Cancer Screening-Colonoscopy 05/26/2017 05/26/2007 Well Visit 65+ 2023 Fall Risk Assessment 11/19/2023 11/18/2022 Depression Screening 10/04/2024 10/05/2023, 08/17/19 24 Influenza Vaccine (Season Ended) 2025 02/14/2019, 03/09/2018, 01/22/2017, Additional history exists Colon Cancer Screening-CT Colonography Discontinued 05/26/2007 Colon Cancer Screening-DNA Stool Discontinued 05/26/19 08 Colon Cancer Screening-FIT Discontinued 05/26/2007 Colon Cancer Screening-Sigmoidoscopy Discontinued 05/26/2007 Medical Devices Implanted Type Area Hardware Engineering Manager Device Identifier Shelf Expiration Date Model / Serial / Lot Medtronic Sofamor Danek [id number] Infuse 18mm 26mm Absorbable Sponge Sterile Water Syringe Needle - [id number] Implanted:Qty: 1 on 10/10/2019 by Emanuel Baum MD at [facility] N/A: Spine Lumbar Medtronic Inc 01/02/2020 [id number] / / [id number] Medtronic Inc [id number] 8.5mm 80mm Multiaxial Cannulated Thoracolumbar Screw Bone - [id number] Implanted:Qty: 2 on 10/10/2019 by Emanuel Baum MD at [facility] N/A: Spine Lumbar Medtronic Inc [id number] / / Medtronic Inc [id number] Cd Horizon 6mm 500mm Line Straight Ronnie Spinal Titanium Nonsterile - [id number] Implanted:Qty: 1 on 10/10/2019 by Emanuel Baum MD at [facility] N/A: Spine Lumbar Medtronic Inc [id number] / / Medtronic Sofamor Danek [id number] Infuse 18mm 26mm Absorbable Sponge Sterile Water Syringe Needle - [id number] Implanted:Qty: 1 on 10/10/2019 by Emanuel Baum MD at [facility] N/A: Spine Lumbar Medtronic Inc 01/02/2020 [id number] / / [id number] Medtronic Sofamor Danek [id number] Mastergraft Block Void Filler Substitute 20ml Bone Graft Matrix - [id number] Implanted:Qty: 1 on 10/10/2019 by Emanuel Baum MD at [facility] N/A: Spine Lumbar Medtronic Inc 05/03/2020 [id number] / / [id number] Allosource [id number] Crushed Chip Frozen Graft 30ml Bone Cancellous - [id number] Implanted:Qty: 1 on 10/10/2019 by Emanuel Baum MD at [facility] N/A: Spine Lumbar Allosource 01/01/2024 [id number] / / [id number] Allosource [id number] Crushed Chip Frozen Graft 30ml Bone Cancellous - [id number] Implanted:Qty: 1 on 10/10/2019 by Emanuel Baum MD at [facility] N/A: Spine Lumbar Allosource 01/01/2024 [id number] / / [id number] Allosource [id number] Crushed Chip Frozen Graft 30ml Bone Cancellous - [id number] Implanted:Qty: 1 on 10/10/2019 by Emanuel Baum MD at [facility] N/A: Spine Lumbar Allosource 12/19/2023 [id number] / / [id number] Medtronic Sofamor Danek [id number] Solera Cd Horizon 6.5mm 50mm Multiaxial Spine Screw Bone Cocr - [id number] Implanted:Qty: 4 on 10/10/2019 by Emanuel Baum MD at [facility] N/A: Spine Lumbar Medtronic Inc [id number] / / Medtronic Sofamor Danek [id number] Solera Cd Horizon 6.5mm 55mm Multiaxial Spine Screw Bone Cocr - [id number] Implanted:Qty: 4 on 10/10/2019 by Emanuel Baum MD at [facility] N/A: Spine Lumbar Medtronic Inc [id number] / / Medtronic Sofamor Danek [id number] Cd Horizon Break Off Spinal Screw Set Titanium Nonsterile 5.5 Mm - [id number] Implanted:Qty: 10 on 10/10/2019 by Emanuel Baum MD at [facility] N/A: Spine Lumbar Medtronic Inc [id number] / / Procedures Procedure Name Priority Date/Time Associated Diagnosis Comments COLONOSCOPY 05/26/2007 12:00 AM SLAT GRADER from Last 3 Months or Most Recently Relevant to Health Maintenance Results * COLONOSCOPY (05/26/2007 12:00 AM SLAT GRADER) Anatomical Region Laterality Modality Other Narrative 05/26/2007 12:00 AM SLAT GRADER Ordered by an unspecified provider. Procedure Note Provider, MD Babar - 05/26/2007 12:00 AM CST PROCEDURE REPORT Patient: MATI TSAISarwat, III Account: [id number] Room No: : 1960 Patient Type: OPA Attend.: Davy Gonzalez M.D. Admit Date:05/26/2007 Dict.: Davy Gonzalez M.D. Disch. Date: DATE OF PROCEDURE: 05/26/07 PROCEDURE: Colonoscopy REFERRING PHYSICIAN: Dr. Jo. PREVIOUS PROCEDURE: None. X-RAYS: None. HISTORY AND PHYSICAL EXAM: The patient is a 47-year-old white male with history of bright red blood per rectum. We have been asked to see himnow for endoscopic evaluation of his colon. The patient himself notes nofamily history, no prior problems. He is other doing clinically well. He does complain of heartburn. Physical exam today is that of a well developed,well nourished white male in no acute distress. He is nonicteric. His lungsare clear. His heart is regular without current JVD or pedal edema. GIwas soft and supple without masses, tenderness, or obstructive sounds. No succession splash. No point tenderness. No peritoneal signs. PRE-PROCEDURE DIAGNOSIS: Rectal bleeding in a 47-year-old male. PHYSICIAN: Dr. Gonzalez. INSTRUMENT USED: Olympus video endoscope. MEDICATIONS: Demerol 100, Versed 8. FINDINGS: The colonoscope was introduced in the rectal most lateralposition and passed to the cecum. The patient tolerated the procedure well. There were no complications.On withdrawal of the colonoscope, the mucosa appeared normal with normal vascular pattern. No polyps or masses were noted in the cecum, right, transverse, left, rectal sigmoid, or rectum. Retroflexed view of the internal anal area showed small internal hemorrhoidal tissue. Perianalexam showed no perianal disease, no rectal masses, prostate was normal forage. COMPLICATIONS: None. POST PROCEDURE DIAGNOSES 1. Normal colonoscopy to cecum without acute bleeding sitesidentified. 2. Bright red blood per rectum consistent with perianal bleeding. 3. Otherwise normal colonoscopy. POST PROCEDURE ORDERS 1. Post sedation instructions. 2. High fiber diet. 3. Milk of Magnesia. 4. Anusol. 5. Repeat colonoscopy per [place] [employer] criteria recommendations. 6. Follow up with Dr. Jo. 7. Please note the patient has complained of heartburn, and he isusing Naprosyn at home. I suggested that we get him on therapy for an antireflux regimen using PPIs for now. I have asked him to holdhis Naprosyn. If his heartburn continues after finishing above,then would consider endoscopic evaluation and continue treatment forthe same. Davy Gonzalez M.D. GRAYSON/dyan TD: 05/27/2007 09:52 CC: Dr. Jo. Historical Provider ENDOSCOPY PROCEDURES Corrie l Result from Last 3 Months or Most Recently Relevant to Health Maintenance Insurance [employer] MEDICARE HMO HUMANA MEDICARE HMO [facility] MEDICARE HMO Advance Directives For more information, please contact: [phone] * Full Code (Latest Code Status on File) Date Activated Date Inactivated Comments 10/10/2019 7:47 AM 10/13/2019 5:12 PM Care Teams Patrol Sergeant Relationship Specialty Start Date End Date Panchito Jo MD [address] [facility] [address] [place] [address] PCP - General 03/12/17
--- OUTSIDE RECORDS SUMMARY | 2024-09-27 15:22 | XMS_ITS | Continuity of Care Document ---
Author Organization Ophthalmology [facility] Address [address] [place] [address] [address] [place] [address] Phone Care Team Providers Care School Plant Consultant Name Role Phone Brendon MERCADO, Thomas Unavailable Unavaila ble Procedures Procedure Date CATARACT SURG W/IOL, 1 STAGE CATARACT SURG W/IOL, 1 STAGE NON MED NEC IOL PREOP OFFICE/OUTPATIENT VISIT, [facility] OPHTHALMIC BIOMETRY OPHTHALMIC BIOMETRY Advance Directives Directive Yes / No Effective Date File Name No Information Encounters Encounter Description Practice Location Reason(s) For Visit Diagnoses Date Provider Providers Copied on Encounter Ophthalmology [facility], [address] [place], [place] [address], [place], [place], [id number], tel:[phone] [address] [place] [address] [facility] [place] No Information 7 Brendon Guzman. [address], [address], [place], [place], [id number], [place]. tel:[phone] Referring Provider: Thomas vernon, [address], [place], [address] . tel:[phone] Ophthalmology [facility], [address] [place] [address] [address], [place], [place], [id number], tel:[phone] [address] [place] [address] [facility] [place] No Information 7 Brendon Guzman. [address], [place], [place], [address], [place]. tel:[phone] Referring Provider: Thomas vernon, [address], [place], [address] . tel:[phone] [facility], [address] [place] [address], [id number], tel:[phone] OPH CONSULT [facility]SH [facility] No Information 7 Krishnasamy Thomas. [address], [address], [place], [id number], . tel:[phone] Referring Provider: Thomas vernon, [address], [place], [address] . tel:[phone] OFFICE/OUTPAT IENT VISIT, [facility], [address] [place] [address], [id number], tel:[phone] Oph Consult [facility] No Information 7 Krishnasamy Thomas. [address], [place], [place], [id number], . tel:[phone] Referring Provider: Thomas vernon, [address], [place], [address] . tel:[phone] Family History Family Member Type Diagnosis Age At Onset No Information Payers Payer name Insurance type Covered constitution party ID Authoriza harley(s) [facility] [id number] Social History Type Description Quantity Date Captured [...]
--- OUTSIDE RECORDS SUMMARY | 2024-09-27 15:22 | XMS_ITS | Clinical Summary ---
Author Organization [facility] Address [address] [place] [address] Care Team Providers Care Strip Roller Name Role Phone Unavailable Primary Care Provider Unavailabl e Source Comments [facility],non-owned Affiliates and Associated Physician Practices is amultiple site organization consisting of ambulatory clinics and hospital sitesin [place], [place], [place] and [place]. This disclosure is being madepursuant to the Care Everywhere program and may not contain all information available regarding this patient. 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 Gender Identity Not on file Sexual Orientation Not on file Plan of Treatment Health Maintenance Due Date Last Done Comments COLOGUARD (AGES 45-75) - COL ON CA SCREENING 1960 COLON MONITORING 1960 COLONOSCOPY - COLON CA SCREENING 1958 CT COLONOGRAPHY - COLON CA SCREENING 1960 Colorectal Cancer Screening 1960 FIT - COLON CA SCREENING 1958 FLEX SIG - COLON CA SCREENING 1958 LIPID TESTING 1960 HEPATITIS C SCREENING 03/05/1976 DTAP/TDAP/TD VACCINES (1 - Tdap) 1977 PNEUMOCOCCAL VACCINE 50+ (1 of 1 - PCV) 2008 ZOSTER VACCINE (1 of 2) 2008 COVID-19 VACCINE (1 - 2023-2 5 season) 2024 DEPRESSION SCREENING 05/04/2024 INFLUENZA VACCINE (Season Ended) 2025 Respiratory Syncytial Virus (RSV) Vaccine Pt: or over 60 yrs (1 - 1-dose 75+ series) 2033 HEPATITIS B VACCINE Aged Out No longe r eligible based on patient's age to complete this topic HIB VACCINE Aged Out No longer eligi ble based on patient's age to complete this topic HPV VACCINE Aged Out No longer eligi ble based on patient's age to complete this topic MENINGOCOCCAL (Group B) VACC INE SHARED DECISION-MAKING Aged Out No longer eligibl e based on patient's age to complete this topic MENINGOCOCCAL GROUPS A/C/Y/W VACCINE Aged Out No longer eligible b ased on patient's age to complete this topic [facility] [place] [id number] [place] [address] * Guarantor: E-SCREEN,SOIL Account Type Relation to Patient Date of Phone Billing Address Company Employer [employer] [address]
--- OUTSIDE RECORDS SUMMARY | 2024-09-27 15:22 | XMS_ITS | Continuity of Care Document ---
Author Organization [facility] Address [address] [place] [address] Phone Care Team Providers Care Seismic Computer Name Role Phone Sarah JARAMILLO Leonarda Unavailable [...] Provider Providers Copied on Encounter [facility] [employer] [facility], [address], [place], [place], [id number], tel:[phone] [address] [facility] Professional Testing only (chief complaint) No Information 6 4 Sarah OD Leonarda. [address], [place], [place], [id number], [place]. tel:[phone] Referring Provider: Dave Bear OD, [facility] [address] [place], [place], [address]. tel:[phone] [facility], [address], [place], [place], [id number], tel:[phone] [address] [place] No Information 0 4 Sarah OD Leonarda. [address] [place] [address] [address], [address], [place], [place], [id number], [place]. tel:[phone] Family History Family Member Type Diagnosis Age At Onset No Information Payers Payer name Insurance type Covered green party ID Authornorya harley(s) [employer] CI [id number] Social History Type Description Quantity Date Captured [...]
--- OUTSIDE RECORDS SUMMARY | 2024-09-27 15:22 | XMS_ITS | Referral Summary ---
Author Organization [facility] Address [address] [place] [id number] Care Team Providers Care Multilith Operator Name Role Phone Panchito Jo MD Primary Care Provider [phone]- [phone] Encounters Date Type Department Care Team Description 09/20/2024 4:30 PM CDT Telemedicine [facility] [address] [place] [phone] Sean Mancia MD Bipolar 1 disorder (HCC) (Primary Dx); Panic disorder; Generalized anxiety disorder from Last 3 Months Allergies Active Allergy Reactions Criticality Noted Date [...] mouth daily 30 tablet 11 02/01/20 24 025 Active Additional Information Patient not taking.Reported on [...] mouth daily 30 tablet 2 05/24/19 [address] (CYMBALTA) 60 mg capsule Take 1 capsule by mouth once daily 30 capsule 08/13/19 [address] (CYMBALTA) 60 mg capsule Take 1 capsule by mouth once daily 30 capsule 09/12/19 25 025 Discontinued Active Problems Problem Noted Date Diagnosed Date Other insomnia 04/29/2023 Assessment & Plan (04/29/2023 11:05 AM EDITOR NEWSPAPER): Not treated for LAUREEN. Has diagnosis on [...] 01/28/2023 Assessment & Plan (04/29/2023 11:02 AM EDITOR NEWSPAPER): Acute on chronic, persistent. Hydroxyzine effective in the past - he would like to re-start. Start Hydroxyzine as discussed. Also starting Cymbalta 30 mg daily. Monitor in 6 weeks. Call the office if symptoms worsen. Supportive counseling provided to display empathy and validation. Bipolar 1 disorder 12/29/2022 Assessment & Plan (04/29/2023 12:33 PM EDITOR NEWSPAPER): Chronic, stable. No medication changes at this time. Continue to monitor at interval. Generalized anxiety disorder 12/29/2022 Assessment & Plan (04/29/2023 10:53 AM EDITOR NEWSPAPER): Acute on chronic, persistent. 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 Continue to monitor at interval. Hypertension 10/07/2019 Hyperlipidemia 10/07/2019 LAUREEN (obstructive sleep apnea) 10/07/2019 Anxiety and depression 10/07/2019 GERD (gastroesophageal reflux disease) 0 Spinal stenosis of lumbar re gion with neurogenic claudication 06/20/2019 Overview (06/20/2019): Added automatically from request for surgery [id number] Spinal stenosis of lumbar region 03/30/2018 Social History Tobacco Use Types Packs/Day Years [...] week 10/05/2023 How often do you attend [facility] or mandaeism services? More than 4 times per year 10/05/2023 Do you belong to any clubs o r organizations such as religion groups, unions, fraternal or athletic groups, or [...] Recorded Patient Health Questionnaire-2 Score 6 10/05/2023 [facility] [place] [facility] Occupat ional [facility] - Occupational Stress [...] place to sleep or slept in a care home (including now)? No 08/17/2023 Personal Safety Answer Date Recorded Have you ever been in or are you currently in a harmful physical or emotional relationship or is someone making you feel afraid or unsafe? Denies 11/18/2022 Sex and Gender Information Value Date Recorded Sex Assigned at Not on file Legal Sex Male 3:35 AM EDITOR NEWSPAPER Gender Identity Male 09/16/2022 11:22 AM CDT Sexual Orientation Straight 09/16/2022 11 :21 AM CDT Last Filed Vital Signs Vital Sign Reading Time Taken Comments Blood Pressure 137/74 06/06/2024 9:20 AM EDITOR NEWSPAPER Pulse 77 06/06/2024 9:20 AM EDITOR NEWSPAPER Temperature 36.8 C (98.2 F) 06/06/2024 9:20 AM EDITOR NEWSPAPER Respiratory Rate 14 11/18/2022 10:2 0 AM CDT Oxygen Saturation 96% 06/06/2024 9:20 AM EDITOR NEWSPAPER Inhaled Oxygen Concentration - - Weight 103.7 kg (228 lb 9.6 oz) 06/06/2024 9:20 AM EDITOR NEWSPAPER Height 175.3 cm (5' 9 ) 06/06/2024 9:20 AM EDITOR NEWSPAPER Body Mass Index 33.76 06/06/2024 9:20 AM EDITOR NEWSPAPER Plan of Treatment Not on file Medical Devices Implanted Type Area Metal Off Bearer Device Identifier Shelf Expiration Date Model / Serial / Lot Medtronic Sofamor Danek [id number] Infuse 18mm 26mm Absorbable Sponge Sterile Water Syringe Needle - [id number] Implanted:Qty: 1 on 10/10/2019 by Emanuel Baum MD at [facility] N/A: Spine Lumbar Medtronic Inc 01/02/2020 [id number] / / [id number] Medtronic Inc [id number] 8.5mm 80mm Multiaxial Cannulated Thoracolumbar Screw Bone - [id number] Implanted:Qty: 2 on 10/10/2019 by Emanuel Baum MD at [facility] N/A: Spine Lumbar Medtronic Inc [id number] / / Medtronic Inc [id number] Cd Horizon 6mm 500mm Line Straight Ronnie Spinal Titanium Nonsterile - [id number] Implanted:Qty: 1 on 10/10/2019 by Emanuel Baum MD at [facility] N/A: Spine Lumbar Medtronic Inc [id number] / / Medtronic Sofamor Danek [id number] Infuse 18mm 26mm Absorbable Sponge Sterile Water Syringe Needle - [id number] Implanted:Qty: 1 on 10/10/2019 by Emanuel Baum MD at [facility] N/A: Spine Lumbar Medtronic Inc 01/02/2020 [id number] / / [id number] Medtronic Sofamor Danek [id number] Mastergraft Block Void Filler Substitute 20ml Bone Graft Matrix - [id number] Implanted:Qty: 1 on 10/10/2019 by Emanuel Baum MD at [facility] N/A: Spine Lumbar Medtronic Inc 05/03/2020 [id number] / / [id number] Allosource [id number] Crushed Chip Frozen Graft 30ml Bone Cancellous - [id number] Implanted:Qty: 1 on 10/10/2019 by Emanuel Baum MD at [facility] N/A: Spine Lumbar Allosource 01/01/2024 [id number] / / [id number] Allosource [id number] Crushed Chip Frozen Graft 30ml Bone Cancellous - [id number] Implanted:Qty: 1 on 10/10/2019 by Emanuel Baum MD at [facility] N/A: Spine Lumbar Allosource 01/01/2024 [id number] / / [id number] Allosource [id number] Crushed Chip Frozen Graft 30ml Bone Cancellous - [id number] Implanted:Qty: 1 on 10/10/2019 by Emanuel Baum MD at [facility] N/A: Spine Lumbar Allosource 12/19/2023 [id number] / / [id number] Medtronic Sofamor Danek [id number] Solera Cd Horizon 6.5mm 50mm Multiaxial Spine Screw Bone Cocr - [id number] Implanted:Qty: 4 on 10/10/2019 by Emanuel Baum MD at [facility] N/A: Spine Lumbar Medtronic Inc [id number] / / Medtronic Sofamor Danek [id number] Solera Cd Horizon 6.5mm 55mm Multiaxial Spine Screw Bone Cocr - [id number] Implanted:Qty: 4 on 10/10/2019 by Emanuel Baum MD at [facility] N/A: Spine Lumbar Medtronic Inc [id number] / / Medtronic Sofamor Danek [id number] Cd Horizon Break Off Spinal Screw Set Titanium Nonsterile 5.5 Mm - [id number] Implanted:Qty: 10 on 10/10/2019 by Emanuel Baum MD at [facility] N/A: Spine Lumbar Medtronic Inc [id number] / / Procedures Procedure Name Priority Date/Time Associated Diagnosis Comments COLONOSCOPY 05/26/2007 12:00 AM EDITOR NEWSPAPER from Last 3 Months or Most Recently Relevant to Health Maintenance Results * COLONOSCOPY (05/26/2007 12:00 AM EDITOR NEWSPAPER) Anatomical Region Laterality Modality Other Narrative 05/26/2007 12:00 AM EDITOR NEWSPAPER Ordered by an unspecified provider. Procedure Note Provider, MD Babar - 05/26/2007 12:00 AM CST PROCEDURE REPORT Patient: MATI TSAI, PRIMITIVO Account: [id number] Room No: : 1960 Patient Type: OPA [...] [place]esia. 4. Anusol. 5. Repeat colonoscopy per [employer] criteria recommendations. 6. Follow up [...] Insurance HUMANA MEDICARE HMO HUMANA MEDICARE HMO HUMANA MEDICARE HMO Advance Directives For more information, please contact: [phone] * Full Code (Latest Code Status on File) Date Activated Date Inactivated Comments 10/10/2019 7:47 AM 10/13/2019 5:12 PM Care Teams Multilith Operator Relationship Specialty Start Date End Date Panchito Jo MD [address] [facility] [address] [place] [address] PCP - General 03/12/17
== END 2024-09-27 15:18 | disposition home or self-care (01) ==
LOC: ANHIMG 15:20
PROVIDERS: PCP Internal Medicine; Visit Provider Anesthesiology Pain Medicine
DX: M96.1 Postlaminectomy syndrome, not elsewhere classified (principal); Z98.1 Arthrodesis status; M47.818 Spondylosis without myelopathy or radiculopathy, sacral and sacrococcygeal region; M46.1 Sacroiliitis, not elsewhere classified; M53.3 Sacrococcygeal disorders, not elsewhere classified; M16.0 Bilateral primary osteoarthritis of hip
CPT/HCPCS: 72114; 72202; 73521

== ENCOUNTER 2024-10-31 01:55 | Day surgery (SDC) | payer MEDICARE, SELFPAY ==
--- NOTE | 2024-10-12 08:17 | PC.NURSE ---
Report to the Outpatient Waiting Room, entrance under the green pavilion located off [facility], at time _2:15 pm on date __10/18/24 . Planned Procedure Time: __3:15 pm .? Time changes happen often and if your time is changed the preop area will call you the afternoon before. - You and your visitor will be asked to self-screen and do not enter if you have any COVID symptoms. Please call surgeon if you need to reschedule. - A mask is optional within the hospital at this time. PER DR MORILLO: MAY HAVE LIGHT LUNCH DAY OF PROCEDURE-TAKE YOUR MEDICATION YOU NORMAL THEN AT 1:15 PM NOTHING TO EAT OR DRINK PRIOR TO PROCEDURE DO NOT STOP ANY OF YOUR OTHER PRESCRIPTION MEDICATIONS PRIOR TO SURGERY Please no make-up, nail [place], hairspray, perfume, deodorant, or body powder the day of surgery.? No jewelry (including any body piercings) or valuables the day of surgery, leave them at home.? Please take a shower or bath the night before, AND the morning of, surgery with an antibacterial soap.? Wear comfortable, loose fitting clothing.? Children are encouraged to wear pajamas. - Jewelry must be removed prior to entering the operating room.? Rings and piercings that are not removed may be cut off. - The hospital will not accept responsibility for valuables.? - Please leave all valuables, including medications, at home the day of surgery. If you are going home after surgery, a licensed dairy truck driver must drive you home.? - NO public transportation without another adult if you receive anesthesia. - We recommend that an adult stay with you for 24 hours following discharge. - We also recommend that you do not drive, make important decision, drink alcoholic beverages, or take any drugs that were not prescribed by your health care provider for at least 24 hours after your discharge time. DO NOT DRIVE 24 HOURS AFTER YOUR PROCEDURE Follow any additional instructions given to you from your surgeon. Telephone instructions given to ___PATIENT____and asked if any additional questions and then verbalized understanding. Patient advised to call surgeon office or pre surgery nurse liaison [phone] if any additional questions.
[2024-10-12 08:35] VITALS: BMI 33.2
--- NOTE | 2024-10-20 09:31 | PC.NURSE ---
Report to the Outpatient Waiting Room, entrance under the green pavilion located off [facility], at time _11:30am on date 10/31/24 . Planned Procedure Time: __12:30 pm .? Time changes happen often and if your time is changed the preop area will call you the afternoon before. - You and your visitor will be asked to self-screen and do not enter if you have any COVID symptoms. Please call surgeon if you need to reschedule. - A mask is optional within the hospital at this time. MAY HAVE LIGHT BREAKFAST MORNING OF SURGERY PER DR MORILLO NOTHING TO EAT OR DRINK 2 HOURS PRIOR TO PROCEDURE ( 10:30 AM) Take only the following medications with a SIP of water on the morning of surgery: ___ROUTINE MEDICATIONS DO NOT STOP ANY OF YOUR OTHER PRESCRIPTION MEDICATIONS PRIOR TO SURGERY EXCEPT THE FOLLOWING Hold all vitamins and supplements for 3 days per anesthesiologist. Medications to discontinue per physician Date to take last dose Please no make-up, nail mohawk, hairspray, perfume, deodorant, or body powder the day of surgery.? No jewelry (including any body piercings) or valuables the day of surgery, leave them at home.? Please take a shower or bath the night before, AND the morning of, surgery with an antibacterial soap.? Wear comfortable, loose fitting clothing.? Children are encouraged to wear pajamas. - Jewelry must be removed prior to entering the operating room.? Rings and piercings that are not removed may be cut off. - The hospital will not accept responsibility for valuables.? - Please leave all valuables, including medications, at home the day of surgery. If you are going home after surgery, a licensed local flatbed driver must drive you home.? - NO public transportation without another adult if you receive anesthesia. - We recommend that an adult stay with you for 24 hours following discharge. - We also recommend that you do not drive, make important decision, drink alcoholic beverages, or take any drugs that were not prescribed by your health care provider for at least 24 hours after your discharge time. DO NOT DRIVE 24 HOURS AFTER PROCEDURE PER DR MORILLO For Pediatric surgeries, we recommend two adults accompany the child home. Follow any additional instructions given to you from your surgeon. Telephone instructions given to _PATIENT and asked if any additional questions and then verbalized understanding. Patient advised to call surgeon office or pre surgery nurse liaison [phone] if any additional questions.
--- NOTE | 2024-10-20 09:34 | PC.NURSE ---
STATES NO CHANGE IN HEALTH HX OR MEDICATIONS SINCE LAST INTERVIEW ON 10/12/24
--- NOTE | ~2024-10-31 | XR_ITS ---
EXAMINATION: XR fluoroscopy no charge DATE: 10/31/2024 12:25 CDT INDICATION: INTRA ART STEROID INJ RT SI JT . TECHNIQUE: 3 fluoroscopic images of the right SI joint were obtained during intra-articular steroid i njection of the right SI joint. Fluoroscopy exposure time was 18.6 seconds. Air Kerma 18.898 mGy. DAP 3.3609 mGym2. COMPARISON: None FINDINGS/IMPRESSION: Fluoroscopic documentation of intra-articular steroid injection of the right SI joint. Please refer t o the operative note for complete procedural details. Reviewed, dictated and finalized at location K.
[2024-10-31 11:15] VITALS: BMI 33.3
--- NOTE | 2024-10-31 11:19 | PM.HPGS ---
History of Present Illness History of Present Illness Consent: Risks, benefits, and alternatives have been discussed and questions answered. Patient agrees to proceed with procedure. Chief complaint: sacroiliitis, sacroiliac joint arthropathy Narrative: Paras Coreas III is a 64 year old male with chronic, recalcitrant and disabling right lumbosacral back pain secondary to sacroiliac joint arthropathy, sacroiliitis with failure to respond to aggressive conservative measures including PT, oral and topical analgesics, opioid and nonopioid analgesics, rest, time and activity/behavioral modification over the past 1-2 years who presents for therapeutic intra-articular steroid injection of the right sacroiliac joint under fluoroscopic guidance and with contrast control. Review of Systems Review of Systems: All systems reviewed & are unremarkable except as noted in HPI and below PMFSH Past Medical History Medical History Low testosterone BMI 33.0-33.9,adult Essential (primary) hypertension Dorsalgia Weight loss Sciatica of left side Other fatigue Encounter for screening for malignant neoplasm of prostate Dietary counseling and surveillance (03/11/16) Anxiety Lupus Degenerative joint disease (DJD) of lumbar spine Seronegative rheumatoid arthritis of multiple sites Bilateral hand pain Inflammatory arthritis Onycholysis MURRAY positive Depression Surgical History Surgical History History of back surgery October 2019 Family History Family History Sibling Patient's sister is in good health Patient's brother is in good health Father Cerebrovascular accident Family history of heart disease in male family member before age 55 Mother No problems noted. Social History Social History Social History: Has a daughter Smoking status: Never smoker Second hand tobacco smoke exposure: No Alcohol intake: never Substance use: never Substance use type: does not use Do You Feel Safe in your Home?: Yes Lack of Transportation: No Lack of Food: Never True Current Housing: I Do Not Have Housing Concerned About Future Housing: No Difficulty Paying Gas/Electric Bills: No Difficulty Paying for Meds: No Currently Unemployed: No Education: High School Diploma/GED Difficulty w/ Childcare or Family Care: No Living arrangements: with family Occupation/Education: occupation 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 Gender identity (if verbalized by the patient): Male Spiritual care concerns: No Meds Home Medications and Allergies Home Medications ?Medication ?Instructions ?Recorded ?Confirmed ?Type clonazepam 0.5 mg tablet 0.5 mg PO DAILY PRN Anxiety 02/26/21 10/12/24 History tamsulosin 0.4 mg capsule 0.4 mg PO DAILY 03/17/23 10/12/24 History zolpidem 5 mg tablet 5 mg PO QHS 05/05/23 10/12/24 History lamotrigine 25 mg tablet 25 mg PO DAILY 08/10/23 10/12/24 History hydroxyzine HCl 25 mg tablet 25 mg PO QID PRN anxiety #30 tabs 12/21/23 10/12/24 Rx duloxetine 60 mg capsule,delayed 60 mg PO DAILY 02/08/24 10/12/24 History release meloxicam 7.5 mg tablet 7.5 mg PO DAILY 02/08/24 10/12/24 History pantoprazole 40 mg tablet,delayed 40 mg PO QAM #90 tabs 05/02/24 10/12/24 Rx release (Protonix) losartan 100 mg tablet 100 mg PO DAILY #90 tabs 05/16/24 10/12/24 Rx naltrexone 8 mg-bupropion 90 mg 1 tablet PO QAM #30 tabs 07/21/24 10/12/24 Rx tablet,extended release (Contrave) pregabalin 200 mg capsule 200 mg PO TID #90 caps 08/29/24 10/12/24 Rx metoprolol succinate 25 mg 25 mg PO DAILY #30 tabs 09/20/24 10/12/24 Rx tablet,extended release 24 hr (Toprol XL) lamotrigine 150 mg tablet 150 mg PO DAILY 10/12/24 10/12/24 History multivitamin 1 tablet PO DAILY 10/12/24 10/12/24 History omega 8-pbb-tgk-fish oil 1,000 mg 1 cap PO DAILY 10/12/24 10/12/24 History (120 mg-180 mg) capsule (Fish Oil) Allergies Allergy/AdvReac Type Severity Reaction Status Date / Time No Known Allergies Allergy Verified 10/20/24 09:35 Exam Narrative: The patient's physical exam is essentially unchanged from prior examination on 09/27/2024. Specifically, patient demonstrates normal lung capacity, tidal volume and respiratory rate without wheezes, crackles, rales or rubs. Heart rate and rhythm are regular without murmurs, gallops or rubs. No JVD. Pulses 2+ globally without increasing peripheral edema. AAOx3 with no evidence of confusion, intoxication or altered mental state, NC/AT without acute distress or altered consciousness. Speech, cognition, mood, insight and judgment at baseline and within normal limits. Assessment and Plan Assessment and plan (1) Chronic low back pain: Code(s): M54.50 - Low back pain, unspecified; G89.29 - Other chronic pain Status: Acute (2) Arthropathy of sacroiliac joint: Code(s): M47.818 - Spondylosis without myelopathy or radiculopathy, sacral and sacrococcygeal region Status: Acute Assessment and Plan: proceed as planned with therapeutic intra-articular steroid injection of the right sacroiliac joint under fluoroscopic guidance and with contrast control. (3) Sacroiliitis: Code(s): M46.1 - Sacroiliitis, not elsewhere classified Status: Acute
--- NOTE | 2024-10-31 11:22 | WPDHPUPDATE1 ---
History and Physical Update Update Date/Time: 10/31/24 11:22 History and Physical has been reviewed, including an updated exam of the patient. There are NO changes in the patient's condition. Risks, benefits, and alternatives have been discussed and questions answered. Patient agrees to proceed with procedure.
--- NOTE | 2024-10-31 11:22 | W.PM.PROC2 ---
Procedure Note - Detailed Date of Procedure 10/31/24 Pre-op Diagnosis sacroiliitis, sacroiliac joint arthropathy Post-op Diagnosis Same Procedure Performed Right Sacroiliac Joint Steroid Injection under Fluoroscopic Guidance and with Contrast Control. Surgeon Alirio Price MD Toaster Element Repairer None Anesthesia Local Description of Procedure INFORMED CONSENT: Risks, benefits and alternatives to the procedure were discussed in detail with the patient who expressed explicit understanding and consent to proceed. Patient was informed verbally and in written form regarding the risks associated with the procedure including the low risk of serious infection, bleeding/bruising, allergic reaction, nerve or organ injury, paralysis, procedural site pain or discomfort, worsening pain and/or mobility, failure to treat and/or disfigurement. The patient expressed explicit understanding and consent to proceed. All materials required for the procedure were available prior to procedure start. Site and side were marked prior to procedure and confirmed in the presence of the patient. PROCEDURE IN DETAIL: The patient was brought to the procedural suite and placed in the prone position. Patient was made comfortable with use of pillows under the head/chest, hips and ankles. Skin overlying the injection site on the affected side(s) was prepared broadly with ChloraPrep applicator and draped in a sterile manner. Aseptic technique was used throughout. The right SI joint was identified in the AP view and contralateral oblique angulation with caudal tilt was utilized to optimize visualization of the inferior and medial joint line representing the posterior portion of the joint. Local anesthesia was established by infiltration with approximately 5 mL of 2% lidocaine via a 1-1/2 inch 27-gauge needle. A 22-gauge 3.5 inch Quincke spinal needle was advanced until the needle entered the inferior third of the joint space approximately 1cm cephalad from its most inferior point. In the AP view, 0.5 mL of Omnipaque 300 contrast medium was injected after negative aspiration for CSF, blood or other bodily fluid, showing appropriate intra-articular spread of contrast without evidence of intravascular, perineural or intrathecal placement. A 1.5 mL solution containing 10 mg of dexamethasone in 0.5% PF bupivacaine was injected after repeat negative aspiration. Appropriate spread of the injectate was confirmed with washout of previous injected contrast. No parasthesias were elicited. Needle was removed completely intact without difficulty. Images were saved and documented in the patient chart. Patient's skin was cleansed and sterile bandage applied. The patient tolerated the procedure well. The patient was transported to the recovery area in stable condition where they were observed for an appropriate amount of time prior to discharge, without evidence of complication. The patient was instructed to avoid excessive activity for the next 48 hours, including climbing and frequent use of stairs. Showers only for 48 hours. They were instructed not to drive or operate heavy machinery for 24 hours. They are to monitor for severe headaches, fevers, chills, night sweats, erythema/swelling at the site or any other signs of infection, bleeding/bruising, bowel or bladder changes as well as new pain, weakness or numbness in the upper or lower extremity. Should they notice these changes, they are instructed to call our office immediately or report directly to the nearest Emergency Department if no answer or if after posted office hours. COMPLICATIONS: None COMMENTS: None CONTRAST WASTED: 29.5mL Omnipaque 300. Complications No immediate complications Condition Stable Disposition Same day [facility] Billing Surgery - Charge Forward: Surgery Billing
[2024-10-31 12:32] VITALS: BP 124/76; PULSE 63; RESP 14; O2SAT 94
[2024-10-31 12:38] VITALS: BP 121/76; PULSE 61; RESP 14; O2SAT 94
[2024-10-31] MEDS: LIDOCAINE 1% LOCAL INJ 10 ML VIAL 2 ML INFILTRATE (12:38)
[2024-10-31] MEDS: BUPivacaine HCL 0.5% 10 ML AMP INFILTRATE (12:39)
[2024-10-31 12:44] VITALS: BP 124/75; PULSE 60; RESP 16; O2SAT 94
== END 2024-10-31 13:01 | disposition home or self-care (01) ==
PROVIDERS: PCP Internal Medicine; Visit Provider Anesthesiology Pain Medicine
PROC: (CPT G0260; principal; 2024-10-31 12:30)
DX: M46.1 Sacroiliitis, not elsewhere classified (principal); M47.818 Spondylosis without myelopathy or radiculopathy, sacral and sacrococcygeal region; M54.50 Low back pain, unspecified; G89.29 Other chronic pain
CPT/HCPCS: G0260; 99199; J2003

== ENCOUNTER 2024-11-15 10:42 | Outpatient (CLI) | payer MEDICARE, SELFPAY ==
--- NOTE | ~2024-11-15 | XR_ITS ---
Clinical Indication: Chest pain PA and lateral views of the chest: Comparison: 04/27/2023 Findings: The lungs are clear, without evidence of focal consolidation or pleural effusion. Cardiome diastinal silhouette is within normal limits. Bones and soft tissues are unremarkable. Impression: Normal chest. Reviewed, dictated and finalized at location . Impression: Normal chest.
--- OUTSIDE RECORDS SUMMARY | 2024-11-15 10:58 | XMS_ITS | Clinical Summary ---
Author Organization [facility] Address [facility] [place] [address] Care Team Providers Care Compliance Monitor Name Role Phone Reji Villafana DO Primary Care Provider [phone] Allergies Active Allergy Reactions Criticality Noted Date [...] ANXIETY 60 tablet 2 03/28/20 24 Active hydrOXYzine (ATARAX) 25 mg tabletIndicati ons:anxiety Take 1 tablet (25 mg total) by mouth 4 (four) times a day as needed for anxiety 30 tablet 2 05/24/19 25 Active Contrave 8-90 mg tablet extended release Take 1 tablet by mouth every morning 05/30/19 25 Active lamoTRIgine (LaMICtal) 100 mg tablet Take 1 tablet by mouth once daily 30 tablet 09/13/19 25 Active lamoTRIgine (LaMICtal) 150 mg tabletIndicati ons:Bipolar Disorder Take 1 tablet (150 mg total) by mouth daily 30 tablet 2 10/05/19 25 Active lamoTRIgine (LaMICtal) 25 mg tabletIndicati ons:Bipolar Disorder Take 1 tablet (25 mg total) by mouth daily for 14 days 14 tablet 09/21/19 25 Active zolpidem (AMBIEN) 10 mg tablet TAKE 1 TABLET BY MOUTH NIGHTLY NEEDED FOR SLEEP 30 tablet 2 10/07/19 25 Active lamoTRIgine (LaMICtal) 200 mg tabletIndicati ons:Bipolar Disorder Take 1 tablet (200 mg total) by mouth daily 30 tablet 2 11/15/19 25 Active lamoTRIgine (LaMICtal) 25 mg tabletIndicati ons:Bipolar Disorder Take 1 tablet (25 mg total) by mouth daily for 14 days 14 tablet 10/26/[address] (CYMBALTA) 60 mg capsule Take 1 capsule by mouth once daily 30 capsule 11/14/[address] (CYMBALTA) 60 mg capsule Take 1 capsule by mouth once daily 30 capsule 09/13/[address] (CYMBALTA) 60 mg capsule Take 1 capsule by mouth once daily 30 capsule 11/12/19 25 025 Discontinued Active Problems Problem Noted Date Diagnosed Date Other insomnia 04/29/2023 Assessment & Plan (04/29/2023 11:05 AM SUPPLY COORDINATOR): Not treated for LAUREEN. Has diagnosis on [...] 01/28/2023 Assessment & Plan (04/29/2023 11:02 AM SUPPLY COORDINATOR): Acute on chronic, persistent. Hydroxyzine effective in the past - he would like to re-start. Start Hydroxyzine as discussed. Also starting Cymbalta 30 mg daily. Monitor in 6 weeks. Call the office if symptoms worsen. Supportive counseling provided to display empathy and validation. Bipolar 1 disorder 12/29/2022 Assessment & Plan (04/29/2023 12:33 PM SUPPLY COORDINATOR): Chronic, stable. No medication changes at this time. Continue to monitor at interval. Generalized anxiety disorder 12/29/2022 Assessment & Plan (04/29/2023 10:53 AM SUPPLY COORDINATOR): Acute on chronic, persistent. 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 Continue to monitor at interval. Hypertension 10/07/2019 Hyperlipidemia 10/07/2019 LAUREEN (obstructive sleep apnea) 10/07/2019 Anxiety and depression 10/07/2019 GERD (gastroesophageal reflux disease) 0 Spinal stenosis of lumbar re gion with neurogenic claudication 06/20/2019 Overview (06/20/2019): Added automatically from request for surgery [id number] Spinal stenosis of lumbar region 03/30/2018 Encounters Date Type Department Care Team Description 10/25/2024 4:00 PM CDT Telemedicine [facility] [id number] [place] [phone] Sean Mancia MD Bipolar 1 disorder (HCC) (Primary Dx); Panic disorder; Anxiety and depression; Generalized anxiety disorder 10/22/2024 6:11 AM CDT - 10/22/2024 11:59 PM CDT Hospital Encounter [facility] MRI [address] [place], [place] [id number] Postlaminectomy syndrome, not elsewhere classified; Low back pain, unspecified back pain laterality, unspecified chronicity, unspecified whether sciatica present; Other chronic pain; Radiculopathy, lumbosacral region; Arthrodesis status; Paresthesia of skin Discharge Disposition: Discharge to home or self care 09/20/2024 4:30 PM CDT Telemedicine [facility] [id number] [place] [phone] Sean Mancia MD Bipolar 1 disorder [...] week 10/05/2023 How often do you attend [facility] or spiritism services? More than 4 times per year 10/05/2023 Do you belong to any clubs o r organizations such as hinduism groups, unions, fraternal or athletic groups, or [...] Recorded Patient Health Questionnaire-2 Score 6 10/05/2023 [facility] - Occupational Stress [...] money to buy more. Never true 10/05/19 Within the past 12 months, t he [...] place to sleep or slept in a senior living (including now)? No 08/17/2023 Personal Safety Answer Date Recorded Have you ever been in or are you currently in a harmful physical or emotional relationship or is someone making you feel afraid or unsafe? Denies 11/18/2022 Sex and Gender Information Value Date Recorded Sex Assigned at Not on file Legal Sex Male 3:35 AM SUPPLY COORDINATOR Gender Identity Male 09/16/2022 11:22 AM CDT Sexual Orientation Straight 09/16/2022 11 :21 AM CDT Obstetrics History Last Filed Vital Signs Vital Sign Reading Time Taken Comments Blood Pressure 137/74 06/06/2024 9:20 AM SUPPLY COORDINATOR Pulse 77 06/06/2024 9:20 AM SUPPLY COORDINATOR Temperature 36.8 C (98.2 F) 06/06/2024 9:20 AM SUPPLY COORDINATOR Respiratory Rate 14 11/18/2022 10:2 0 AM CDT Oxygen Saturation 96% 06/06/2024 9:20 AM SUPPLY COORDINATOR Inhaled Oxygen Concentration - - Weight 103.7 kg (228 lb 9.6 oz) 06/06/2024 9:20 AM SUPPLY COORDINATOR Height 175.3 cm (5' 9) 06/06/2024 9:20 AM SUPPLY COORDINATOR Body Mass Index 33.76 06/06/2024 9:20 AM SUPPLY COORDINATOR Plan of Treatment Health Maintenance Due Date [...] Screening 10/04/2024 10/05/2023, 08/17/19 24 Influenza Vaccine (#1) 2025 9, 03/09/2018, 01/22/2017, Additional history exists Colon Cancer Screening-CT Colonography Discontinued 05/26/2007 Colon Cancer Screening-DNA Stool Discontinued 05/26/19 08 Colon Cancer Screening-FIT Discontinued 05/26/2007 Colon Cancer Screening-Sigmoidoscopy Discontinued 05/26/2007 Medical Devices Implanted Type Area Arrow Point Attacher Device Identifier Shelf Expiration Date Model / Serial / Lot Medtronic Sofamor Danek [id number] Infuse 18mm 26mm Absorbable Sponge Sterile Water Syringe Needle - [id number] Implanted:Qty: 1 on 10/10/2019 by Emanuel Baum MD at [facility] N/A: Spine Lumbar Medtronic Inc 01/02/2020 [id number] / / [id number] Medtronic Inc [id number] 8.5mm 80mm Multiaxial Cannulated Thoracolumbar Screw Bone - [id number] Implanted:Qty: 2 on 10/10/2019 by Emanuel Baum MD at [facility] N/A: Spine Lumbar Medtronic Inc [id number] / / Medtronic Inc [id number] Cd Horizon 6mm 500mm Line Straight Ronnie Spinal Titanium Nonsterile - [id number] Implanted:Qty: 1 on 10/10/2019 by Emanuel Baum MD at [facility] N/A: Spine Lumbar Medtronic Inc [id number] / / Medtronic Sofamor Danek [id number] Infuse 18mm 26mm Absorbable Sponge Sterile Water Syringe Needle - [id number] Implanted:Qty: 1 on 10/10/2019 by Emanuel Baum MD at [facility] N/A: Spine Lumbar Medtronic Inc 01/02/2020 [id number] / / [id number] Medtronic Sofamor Danek [id number] Mastergraft Block Void Filler Substitute 20ml Bone Graft Matrix - [id number] Implanted:Qty: 1 on 10/10/2019 by Emanuel Baum MD at [facility] N/A: Spine Lumbar Medtronic Inc 05/03/2020 [id number] / / [id number] Allosource [id number] Crushed Chip Frozen Graft 30ml Bone Cancellous - [id number] Implanted:Qty: 1 on 10/10/2019 by Emanuel Baum MD at [facility] N/A: Spine Lumbar Allosource 01/01/2024 [id number] / / [id number] Allosource [id number] Crushed Chip Frozen Graft 30ml Bone Cancellous - [id number] Implanted:Qty: 1 on 10/10/2019 by Emanuel Baum MD at [facility] N/A: Spine Lumbar Allosource 01/01/2024 [id number] / / [id number] Allosource [id number] Crushed Chip Frozen Graft 30ml Bone Cancellous - [id number] Implanted:Qty: 1 on 10/10/2019 by Emanuel Baum MD at [facility] N/A: Spine Lumbar Allosource 12/19/2023 [id number] / / [id number] Medtronic Sofamor Danek [id number] Solera Cd Horizon 6.5mm 50mm Multiaxial Spine Screw Bone Cocr - [id number] Implanted:Qty: 4 on 10/10/2019 by Emanuel Baum MD at [facility] N/A: Spine Lumbar Medtronic Inc [id number] / / Medtronic Sofamor Danek [id number] Solera Cd Horizon 6.5mm 55mm Multiaxial Spine Screw Bone Cocr - [id number] Implanted:Qty: 4 on 10/10/2019 by Emanuel Baum MD at [facility] N/A: Spine Lumbar Medtronic Inc [id number] / / Medtronic Sofamor Danek [id number] Cd Horizon Break Off Spinal Screw Set Titanium Nonsterile 5.5 Mm - [id number] Implanted:Qty: 10 on 10/10/2019 by Emanuel Baum MD at [facility] N/A: Spine Lumbar Medtronic Inc [id number] / / Procedures Procedure Name Priority Date/Time Associated Diagnosis Comments MRI LUMBAR SPINE WO CONTRAST Schedule Routine, Read Routine (OP Routine) 10/22/2024 7:02 AM CDT Postlaminectomy syndrome, not elsewhere classified Low back pain, unspecified back pain laterality, unspecified chronicity, unspecified whether sciatica present Other chronic pain Radiculopathy, lumbosacral region Arthrodesis status Paresthesia of skin COLONOSCOPY 05/26/2007 12:00 AM SUPPLY COORDINATOR from Last 3 Months or Most Recently Relevant to Health Maintenance Results * MRI Lumbar Spine WO Contrast (10/22/2024 7:02 AM CDT) Anatomical Region Laterality Modality Spine N/A Magnetic Resonan ce 10/24/2024 8:12 AM CDT Narrative 10/24/2024 8:18 AM CDT EXAM DESCRIPTION: MRI LUMBAR SPINE WO CONTRAST REASON FOR STUDY: Lower back pain radiating down the right leg of unspecified duration. No provided history of trauma or inciting and/or aggravating events. No provided past medical history. History of unspecified surgery 2019. TECHNIQUE: Sagittal and axial imaging of the lumbar spine includes T1, T2, STIR sequences. Images saved to PACS. COMPARISON: CT myelogram lumbar 11/18/2022; lumbar spine radiograph 09/18/2022; CT lumbar spine 09/18/2022 FINDINGS: SEGMENTATION: The lowest fully formed intervertebral disc level is labeled L5-S1. Correlate with numbering schema utilized for prior surgery. ALIGNMENT: Alignment and curvature unchanged. VERTEBRAE: No MR evidence of acute-subacute fracture. Vertebral body heights unchanged. Spondylosis. Visualized marrow signal within normal limits. DISC HEIGHT: Of the non fused intervertebral disc levels, multilevel variable intervertebral disc desiccation loss of intervertebral disc height of the visualized spine. HARDWARE: Postsurgical changes pursuant to instrumented spinal fusion spanning L3 through S1 as well as the bilateral sacroiliac joints. Correlate with operative details. CORD/CAUDA: Normal in size and signal intensity with conus medullaris termination at the inferior aspect of L1. LOWER THORACIC: Incompletely imaged. No stenosis demonstrated. INDIVIDUAL DISC LEVELS: L1-2: Annular disc bulge. Bilateral hypertrophic facet arthropathy. Ligamentum flavum thickening. Mild spinal canal stenosis. Redemonstration of bilateral neural foraminal stenosis, noting slight arthropathic facet contact with exiting bilateral L1 nerve roots. L2-3: Minimal annular disc bulge. Bilateral hypertrophic facet arthropathy. No spinal canal stenosis. Redemonstration of right neural foraminal stenosis common noting slight arthropathic facet contact with exiting right L2 nerve root. L3-4: Fused at this level. Bilateral hypertrophic facet arthropathy. No spinal canal stenosis. Mild bilateral neural foraminal stenosis. L4-5: Fused at this level. Bilateral hypertrophic facet arthropathy. No spinal canal stenosis. Mild bilateral neural foraminal stenosis. L5-S1: No diffuse disc bulge or focal herniation. No significant spinal canal or neuroforaminal stenosis. SACRUM: Visualized upper sacrum intact. VISUALIZED UPPER ABDOMEN: No significant abnormality. OTHER: Sarcopenia manifested as variably robust fatty atrophy of the visualized musculature. IMPRESSION: Spondylosis and degenerative disc disease of the postsurgical lumbar spine as detailed level by level above. THIS IS AN ELECTRONICALLY VERIFIED FINAL REPORT 10/24/2024 8:18 AM - Electronically signed by Maycol Chaparro M.D. ELIESER T: Report ID: [id number] Reading Location: [id number] Procedure Note Maycol Chaparro MD - 10/24/2024 EXAM DESCRIPTION: MRI LUMBAR SPINE WO CONTRAST REASON FOR STUDY: Lower back pain radiating down the right leg ofunspecified duration. No provided history of trauma or inciting and/or aggravating events. No provided past medical history. History of unspecified surgery 2019. TECHNIQUE: Sagittal and axial imaging of the lumbar spine includes T1,T2, STIR sequences. Images saved to PACS. COMPARISON: CT myelogram lumbar 11/18/2022; lumbar spine radiograph 09/18/2022; CT lumbar spine 09/18/2022 FINDINGS: SEGMENTATION: The lowest fully formed intervertebral disclevel is labeled L5-S1. Correlate with numbering schema utilized for priorsurgery. ALIGNMENT: Alignment and curvature unchanged. VERTEBRAE: No MR evidence of acute-subacute fracture. Vertebral body heights unchanged. Spondylosis. Visualized marrow signal within normal limits. DISC HEIGHT: Of the non fused intervertebral disc levels, multilevel variable intervertebral disc desiccation loss of intervertebral discheight of the visualized spine. HARDWARE: Postsurgical changes pursuant to instrumented spinal fusion spanning L3 through S1 as well as the bilateral sacroiliac joints.Correlate with operative details. CORD/CAUDA: Normal in size and signal intensity with conus medullaris termination at the inferior aspect of L1. LOWER THORACIC: Incompletely imaged. No stenosis demonstrated. INDIVIDUAL DISC LEVELS: L1-2: Annular disc bulge. Bilateral hypertrophic facet arthropathy. Ligamentum flavum thickening. Mild spinal canal stenosis.Redemonstration of bilateral neural foraminal stenosis, noting slight arthropathic facetcontact with exiting bilateral L1 nerve roots. L2-3: Minimal annular disc bulge. Bilateral hypertrophic facetarthropathy. No spinal canal stenosis. Redemonstration of right neural foraminalstenosis common noting slight arthropathic facet contact with exiting right M3gtnyg root. L3-4: Fused at this level. Bilateral hypertrophic facet arthropathy.No spinal canal stenosis. Mild bilateral neural foraminal stenosis. L4-5: Fused at this level. Bilateral hypertrophic facet arthropathy.No spinal canal stenosis. Mild bilateral neural foraminal stenosis. L5-S1: No diffuse disc bulge or focal herniation. No significant spinal canal or neuroforaminal stenosis. SACRUM: Visualized upper sacrum intact. VISUALIZED UPPER ABDOMEN: No significant abnormality. OTHER: Sarcopenia manifested as variably robust fatty atrophy of the visualized musculature. IMPRESSION: Spondylosis and degenerative disc disease of thepostsurgical lumbar spine as detailed level by level above. THIS IS AN ELECTRONICALLY VERIFIED FINAL REPORT 10/24/2024 8:18 AM - Electronically signed by Maycol Chaparro M.D. ELIESER T: Report ID: [id number] Reading Location: [place] [address] us Not In File Miscellaneous IMG MRI PROCEDURES Fin al Result * COLONOSCOPY (05/26/2007 12:00 AM SUPPLY COORDINATOR) Anatomical Region Laterality Modality Other Narrative 05/26/2007 12:00 AM SUPPLY COORDINATOR Ordered by an unspecified provider. Procedure Note Provider, MD Babar - 05/26/2007 12:00 AM CST PROCEDURE REPORT Patient: MATI TSAI, PRIMITIVO Account: [id number] Room No: : 1960 Patient Type: OPA [...] 47-year-old male. PHYSICIAN: Dr. Gonzalez. INSTRUMENT USED: NodeFly video endoscope. MEDICATIONS: Demerol 100, Versed 8. [...] Magnesia. 4. Anusol. 5. Repeat colonoscopy per [place] [employer] criteria recommendations. 6. Follow up [...] GRAYSON/dyan TD: 05/27/2007 09:52 CC: Dr. Jo. us Historical Provider ENDOSCOPY PROCEDURES Corrie l Result from Last 3 Months or Most Recently Relevant to Health Maintenance Insurance [employer] MED[employer]ARE HMO [employer] [place] [address] [place] [address] MEDICARE HMO Advance Directives For more information, please contact: [phone] * Full Code (Latest Code Status on File) Date Activated Date Inactivated Comments 10/10/2019 7:47 AM 10/13/2019 5:12 PM Care Teams Compliance Monitor Relationship Specialty Start Date End Date Reji Villafana DO [address] [address] PCP - General Internal Medicine 10/03/24
--- OUTSIDE RECORDS SUMMARY | 2024-11-15 10:58 | XMS_ITS | Continuity of Care Document ---
Author Organization [facility] Address [address] [place] [address] [address] [place] [address] Phone Care Team Providers Care Cleaning Maid Name Role Phone Brendon MERCADO, Thomas Unavailable Unavaila ble Procedures Procedure Date CATARACT SURG W/IOL, 1 STAGE CATARACT SURG W/IOL, 1 STAGE NON MED NEC IOL PREOP OFFICE/OUTPATIENT VISIT, [facility] OPHTHALMIC BIOMETRY OPHTHALMIC BIOMETRY Advance Directives Directive Yes / No Effective Date File Name No Information Encounters Encounter Description Practice Location Reason(s) For Visit Diagnoses Date Provider Providers Copied on Encounter [facility], [address] [place], [place] [address] [address], [place], [place], [id number], tel:[phone] [address] [place] [address] [facility] No Information 7 Brendon Guzman. [address], [place], [place], [id number], [place]. tel:[phone] Referring Provider: Thomas vernon, [address], [place], [address] . tel:[phone] [facility], [address] [place] [address] [address], [place], [place], [id number], tel:[phone] [address] [place] [address] [facility] No Information 7 Brendon Guzman. [address], [place], [place], [id number], [place]. tel:[phone] Referring Provider: Thomas vernon, [address], [place], [address] . tel:[phone] [facility], [address] [place] [address], [id number], tel:[phone] OPH CONSULT [facility] No Information 7 Krishnasamy Thomas. [address], [address] [address], [id number], . tel:[phone] Referring Provider: Thomas vernon, [address], [place], [address] . tel:[phone] OFFICE/OUTPAT IENT VISIT, [facility], [address] [place] [address], [id number], tel:[phone] Oph Consult [facility] No Information 7 Krishnasamy Thomas. [address], [address], [place], [place], [id number], . tel:[phone] Referring Provider: Thomas vernon, [address], [place], [address] . tel:[phone] Family History Family Member Type Diagnosis Age At Onset No Information Payers Payer name Insurance type Covered republican ID Authoriza harley(s) [facility] [id number] Social History Type Description Quantity Date Captured [...]
--- OUTSIDE RECORDS SUMMARY | 2024-11-15 10:58 | XMS_ITS | Clinical Summary ---
Author Organization [facility] Address [address] [place] [address] Care Team Providers Care Drafter Civil Name Role Phone Unavailable Primary Care Provider Unavailabl e Source Comments [facility],non-owned Affiliates and Associated Physician Practices is amultiple site organization consisting of ambulatory clinics and hospital sitesin [place], [place], [place] and [place]. This disclosure is being madepursuant to the Care Everywhere program and may not contain all information available regarding this patient. 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
--- OUTSIDE RECORDS SUMMARY | 2024-11-15 10:58 | XMS_ITS | Referral Summary ---
Author Organization [facility] Address [address] [place] [address] Care Team Providers Care Glass Cutting Machine Feeder Name Role Phone Reji Villafana DO Primary Care Provider [phone] Encounters Date Type Department Care Team Description 10/25/2024 4:00 PM CDT Telemedicine [facility] [address] [address] Sean Mancia MD Bipolar 1 disorder (HCC) (Primary Dx); Panic disorder; Anxiety and depression; Generalized anxiety disorder 10/22/2024 6:11 AM CDT - 10/22/2024 11:59 PM CDT Hospital Encounter [facility] [address] [address] Postlaminectomy syndrome, not elsewhere classified; Low back pain, unspecified back pain laterality, unspecified chronicity, unspecified whether sciatica present; Other chronic pain; Radiculopathy, lumbosacral region; Arthrodesis status; Paresthesia of skin Discharge Disposition: Discharge to home or self care 09/20/2024 4:30 PM CDT Telemedicine [facility] [address] [address] Sean Mancia MD Bipolar 1 disorder [...] 04/29/2023 Assessment & Plan (04/29/2023 11:05 AM PARKING ENFORCER): Not treated for LAUREEN. Has diagnosis on [...] 01/28/2023 Assessment & Plan (04/29/2023 11:02 AM PARKING ENFORCER): Acute on chronic, persistent. Hydroxyzine effective in the past - he would like to re-start. Start Hydroxyzine as discussed. Also starting Cymbalta 30 mg daily. Monitor in 6 weeks. Call the office if symptoms worsen. Supportive counseling provided to display empathy and validation. Bipolar 1 disorder 12/29/2022 Assessment & Plan (04/29/2023 12:33 PM PARKING ENFORCER): Chronic, stable. No medication changes at this time. Continue to monitor at interval. Generalized anxiety disorder 12/29/2022 Assessment & Plan (04/29/2023 10:53 AM PARKING ENFORCER): Acute on chronic, persistent. 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 Continue to monitor at interval. Hypertension 10/07/2019 Hyperlipidemia 10/07/2019 LAUREEN (obstructive sleep apnea) 10/07/2019 Anxiety and depression 10/07/2019 GERD (gastroesophageal reflux disease) 0 Spinal stenosis of lumbar re gion with neurogenic claudication 06/20/2019 Overview (06/20/2019): Added automatically from request for surgery [id number] Spinal stenosis of lumbar region 03/30/2018 Social [...] often do you attend chur ch or anabaptist services? More than 4 times per year 10/05/2023 Do you belong to any clubs o r organizations such as samaritan groups, unions, fraternal or athletic groups, or [...] Recorded Patient Health Questionnaire-2 Score 6 10/05/2023 [facility] - Occupational Stress [...] place to sleep or slept in a intermediate (including now)? No 08/17/2023 Personal Safety Answer Date Recorded Have you ever been in or are you currently in a harmful physical or emotional relationship or is someone making you feel afraid or unsafe? Denies 11/18/2022 Sex and Gender Information Value Date Recorded Sex Assigned at Not on file Legal Sex Male 3:35 AM PARKING ENFORCER Gender Identity Male 09/16/2022 11:22 AM CDT Sexual Orientation Straight 09/16/2022 11 :21 AM CDT Last Filed Vital Signs Vital Sign Reading Time Taken Comments Blood Pressure 137/74 06/06/2024 9:20 AM PARKING ENFORCER Pulse 77 06/06/2024 9:20 AM PARKING ENFORCER Temperature 36.8 C (98.2 F) 06/06/2024 9:20 AM PARKING ENFORCER Respiratory Rate 14 11/18/2022 10:2 0 AM CDT Oxygen Saturation 96% 06/06/2024 9:20 AM PARKING ENFORCER Inhaled Oxygen Concentration - - Weight 103.7 kg (228 lb 9.6 oz) 06/06/2024 9:20 AM PARKING ENFORCER Height 175.3 cm (5' 9) 06/06/2024 9:20 AM PARKING ENFORCER Body Mass Index 33.76 06/06/2024 9:20 AM PARKING ENFORCER Plan of Treatment Not on file Medical Devices Implanted Type Area Supervisor Corduroy Cutting Device Identifier Shelf Expiration Date Model / Serial / Lot Medlucierna Danek [id number] Infuse 18mm 26mm Absorbable Sponge Sterile Water Syringe Needle - [id number] Implanted:Qty: 1 on 10/10/2019 by Emanuel Baum MD at [facility] N/A: Spine Lumbar Medtronic Inc 01/02/2020 [id number] / / [id number] Medtronic Inc [id number] 8.5mm 80mm Multiaxial Cannulated Thoracolumbar Screw Bone - [id number] Implanted:Qty: 2 on 10/10/2019 by Emanuel Baum MD at [facility] N/A: Spine Lumbar Medtronic Inc [id number] / / Medtronic Inc [id number] Cd Horizon 6mm 500mm Line Straight Ronnie Spinal Titanium Nonsterile - [id number] Implanted:Qty: 1 on 10/10/2019 by Emanuel Baum MD at [facility] N/A: Spine Lumbar Medtronic Inc [id number] / / Medtronic Sofamor Danek [id number] Infuse 18mm 26mm Absorbable Sponge Sterile Water Syringe Needle - [id number] Implanted:Qty: 1 on 10/10/2019 by Emanuel Baum MD at [facility] N/A: Spine Lumbar Medtronic Inc 01/02/2020 [id number] / / [id number] Medtronic Sofamor Danek [id number] Mastergraft Block Void Filler Substitute 20ml Bone Graft Matrix - [id number] Implanted:Qty: 1 on 10/10/2019 by Emanuel Baum MD at [facility] N/A: Spine Lumbar Medtronic Inc 05/03/2020 [id number] / / [id number] Allosource [id number] Crushed Chip Frozen Graft 30ml Bone Cancellous - [id number] Implanted:Qty: 1 on 10/10/2019 by Emanuel Baum MD at [facility] N/A: Spine Lumbar Allosource 01/01/2024 [id number] / / [id number] Allosource [id number] Crushed Chip Frozen Graft 30ml Bone Cancellous - [id number] Implanted:Qty: 1 on 10/10/2019 by Emanuel Baum MD at [facility] N/A: Spine Lumbar Allosource 01/01/2024 [id number] / / [id number] Allosource [id number] Crushed Chip Frozen Graft 30ml Bone Cancellous - [id number] Implanted:Qty: 1 on 10/10/2019 by Emanuel Baum MD at [facility] N/A: Spine Lumbar Allosource 12/19/2023 [id number] / / [id number] Medtronic Sofamor Danek [id number] Solera Cd Horizon 6.5mm 50mm Multiaxial Spine Screw Bone Cocr - [id number] Implanted:Qty: 4 on 10/10/2019 by Emanuel Baum MD at [facility] N/A: Spine Lumbar Medtronic Inc [id number] / / Medtronic Sofamor Danek [id number] Solera Cd Horizon 6.5mm 55mm Multiaxial Spine Screw Bone Cocr - [id number] Implanted:Qty: 4 on 10/10/2019 by Emanuel Baum MD at [facility] N/A: Spine Lumbar Medtronic Inc [id number] / / Medtronic Sofamor Danek [id number] Cd Horizon Break Off Spinal Screw Set Titanium Nonsterile 5.5 Mm - [id number] Implanted:Qty: 10 on 10/10/2019 by Emanuel Baum MD at [facility] N/A: Spine Lumbar Medtronic Inc [id number] / / Procedures Procedure Name Priority Date/Time Associated Diagnosis Comments MRI LUMBAR SPINE WO CONTRAST Schedule Routine, Read Routine (OP Routine) 10/22/2024 7:02 AM CDT Postlaminectomy syndrome, not elsewhere classified Low back pain, unspecified back pain laterality, unspecified chronicity, unspecified whether sciatica present Other chronic pain Radiculopathy, lumbosacral region Arthrodesis status Paresthesia of skin COLONOSCOPY 05/26/2007 12:00 AM PARKING ENFORCER from Last 3 Months or Most Recently [...] Maycol Chaparro M.D. ELIESER T: Report ID: [id number] Reading Location: [place] [address] Procedure Note Maycol Chaparro MD - 10/24/2024 [...] slight arthropathic facet contact with exiting right S2uflud root. L3-4: Fused at this level. Bilateral [...] 8:18 AM - Electronically signed by Maycol MON T: Report ID: [id number] Reading Location: [place] [address] us Not In File Miscellaneous IMG MRI PROCEDURES Fin al Result * COLONOSCOPY (05/26/2007 12:00 AM PARKING ENFORCER) Anatomical Region Laterality Modality Other Narrative 05/26/2007 12:00 AM PARKING ENFORCER Ordered by an unspecified provider. Procedure Note Provider, MD Babar - 05/26/2007 12:00 AM CST PROCEDURE REPORT Patient: MATI TSAI III Account: [id number] Room No: : 1960 Patient Type: OPA [...] Magnesia. 4. Anusol. 5. Repeat colonoscopy per [place] [employer] criteria recommendations. 6. Follow up [...] Advance Directives For more information, please contact: [phone] * Full Code (Latest Code Status on File) Date Activated Date Inactivated Comments 10/10/2019 7:47 AM 10/13/2019 5:12 PM Care Teams Glass Cutting Machine Feeder Relationship Specialty Start Date End Date Reji Villafana DO [address] [place] [id number] PCP - General Internal Medicine 10/03/24
--- OUTSIDE RECORDS SUMMARY | 2024-11-15 10:58 | XMS_ITS | Continuity of Care Document ---
Author Organization [facility] [place] [address] [place] [address] Phone Care Team Providers Care Gate Watch Name Role Phone Sarah JARAMILLO Leonarda Unavailable [...] Provider Providers Copied on Encounter [facility], [address], [place], [place], [address], tel:[phone] SEC [facility] Professional Testing only (chief complaint) No Information 6 4 Sarah OD Leonarda. [address], [place], [place], [address], [place]. tel:[phone] Referring Provider: Dave Bear OD, [facility] [address] [place], [place], [address]. tel:[phone] [facility], [address], [place], [place], [address], tel:[phone] [address] [place] No Information 0 4 Sarah OD Leonarda. [address] [place] [address] [address], [address], [place], [place], [address], [place]. tel:[phone] Family History Family Member Type Diagnosis Age At Onset No Information Payers Payer name Insurance type Covered constitution party ID Authornorya harley(s) Hum[employer] Medicare CI [id number] Social History Type Description Quantity Date Captured [...]
== END 2024-11-15 10:43 | disposition home or self-care (01) ==
PROVIDERS: PCP Internal Medicine; Visit Provider Internal Medicine
DX: R07.9 Chest pain, unspecified (principal)
CPT/HCPCS: 71046

== ENCOUNTER 2024-11-28 02:00 | Day surgery (SDC) | payer MEDICARE, SELFPAY ==
[2024-11-24 09:43] VITALS: BMI 33.3
--- NOTE | 2024-11-24 09:50 | PC.NURSE ---
Report to the Outpatient Waiting Room, entrance under the green pavilion located off [facility], at time _230pm_ on date _[id number]_. Planned Procedure Time: _330pm_.? Time changes happen often and if your time is changed the preop area will call you the afternoon before. - You and your visitor will be asked to self-screen and do not enter if you have any COVID symptoms. Please call surgeon if you need to reschedule. - A mask is optional within the hospital at this time. No smoking, or chewing tobacco (or any form of nicotine). OK for breakfast and a light lunch. Nothing to eat or drink after 130pm. No chewing gum, candy or mints. Take only the following medications with a SIP of water on the morning of surgery: ___Take medications DO NOT STOP ANY OF YOUR OTHER PRESCRIPTION MEDICATIONS PRIOR TO SURGERY EXCEPT THE FOLLOWING Hold all vitamins and supplements for 3 days per anesthesiologist. Medications to discontinue per physician ___Please check with Dr Price's office if need to hold Meloxicam. Date to take last dose Please no make-up, nail urdu, hairspray, perfume, deodorant, or body powder the day of surgery.? No jewelry (including any body piercings) or valuables the day of surgery, leave them at home.? Please take a shower or bath the night before, or the morning of, surgery with an antibacterial soap.? Wear comfortable, loose fitting clothing. - Jewelry must be removed prior to entering the operating room.? Rings and piercings that are not removed may be cut off. - The hospital will not accept responsibility for valuables.? - Please leave all valuables, including medications, at home the day of surgery. If you are going home after surgery, a licensed dumpcart driver must drive you home.? - NO public transportation without another adult if you receive anesthesia. - We also recommend that you do not drive 24 hours after your discharge time. Follow any additional instructions given to you from your surgeon. Telephone instructions given to __Bob___and asked if any additional questions and then verbalized understanding. Patient advised to call surgeon office or pre surgery nurse liaison [phone] if any additional questions.
--- NOTE | ~2024-11-28 | XR_ITS ---
EXAMINATION: XR fluoroscopy no charge DATE: 11/28/2024 15:48 INDICATION: Right L4-L5 and L5-S1 transforaminal epidural steroid injection TECHNIQUE: 154 fluoroscopic images of the lumbar spine were obtained during procedure performed by Dr Sarwat Price. Radiologist was not present for the imaging or procedure. The amount of fluoroscopy time used during this procedure was 1.0 minutes. Total DAP was 11.329 mGym^2. COMPARISON: None. FINDINGS: Again seen are changes of instrumented lumbar/lumbosacral instrumented posterior spinal fus ion with bilateral vertical rods with bilateral pedicle screws at L3-L5 and with bilateral iliac scre ws. Images demonstrate advancement of a pair of spinal needles which project over the superior aspect of the and L4-L5 and L5-S1 neural foramina. Subsequent images demonstrate the injected contrast trac eitan inferolaterally from the neural foramina IMPRESSION: 1. Fluoroscopy utilized during reported right L4-L5 and L5-S1 transforaminal epidural steroid injecti ons. See procedure note for further detail. Reviewed, dictated and finalized at location A. IMPRESSION: 1. Fluoroscopy utilized during reported right L4-L5 and L5-S1 transforaminal ep idural steroid injections. See procedure note for further detail.
--- OUTSIDE RECORDS SUMMARY | 2024-11-28 02:03 | XMS_ITS | Continuity of Care Document ---
Author Organization [facility] [place] [address] [place] [address] Phone Care Team Providers Care City Maintenance Manager Name Role Phone Sarah JARAMILLO Leonarda Unavailable [...] Provider Providers Copied on Encounter [facility] [facility], [address], [place], [place], [address], tel:[phone] SEC [facility] Professional Testing only (chief complaint) No Information 6 4 Sarah OD Leonarda. [address] [address], [place], [place], [address], [place]. tel:[phone] Referring Provider: Dave Bear OD, [facility] [address] [place], [place], [address]. tel:[phone] [facility], [address], [place], [place], [address], tel:[phone] [address] [place] No Information 0 4 Sarah OD Leonarda. [address] [place] [address] [address], [address], [place], [place], [address], [place]. tel:[phone] Family History Family Member Type Diagnosis Age At Onset No Information Payers Payer name Insurance type Covered constitution party ID Authornorya harley(s) Humana Medicare CI [id number] Social History Type Description Quantity Date Captured [...]
--- OUTSIDE RECORDS SUMMARY | 2024-11-28 02:03 | XMS_ITS | Clinical Summary ---
Author Organization [facility] Address [facility] [place] [address] Care Team Providers Care Drafter Structural Name Role Phone Reji Villafana DO Primary Care Provider [phone] Allergies Active Allergy Reactions Criticality Noted Date [...] 04/29/2023 Assessment & Plan (04/29/2023 11:05 AM SET UP AND LAY OUT INSPECTOR): Not treated for LAUREEN. Has diagnosis on [...] 01/28/2023 Assessment & Plan (04/29/2023 11:02 AM SET UP AND LAY OUT INSPECTOR): Acute on chronic, persistent. Hydroxyzine effective in the past - he would like to re-start. Start Hydroxyzine as discussed. Also starting Cymbalta 30 mg daily. Monitor in 6 weeks. Call the office if symptoms worsen. Supportive counseling provided to display empathy and validation. Bipolar 1 disorder 12/29/2022 Assessment & Plan (04/29/2023 12:33 PM SET UP AND LAY OUT INSPECTOR): Chronic, stable. No medication changes at this time. Continue to monitor at interval. Generalized anxiety disorder 12/29/2022 Assessment & Plan (04/29/2023 10:53 AM SET UP AND LAY OUT INSPECTOR): Acute on chronic, persistent. 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 Continue to monitor at interval. Hypertension 10/07/2019 Hyperlipidemia 10/07/2019 LAUREEN (obstructive sleep apnea) 10/07/2019 Anxiety and depression 10/07/2019 GERD (gastroesophageal reflux disease) 0 Spinal stenosis of lumbar re gion with neurogenic claudication 06/20/2019 Overview (06/20/2019): Added automatically from request for surgery [id number] Spinal stenosis of lumbar region 03/30/2018 Encounters Date Type Department Care Team Description 10/25/2024 4:00 PM CDT Telemedicine [facility] [id number] [place] [phone] Sean Mancia MD Bipolar 1 disorder (HCC) (Primary Dx); Panic disorder; Anxiety and depression; Generalized anxiety disorder 10/22/2024 6:11 AM CDT - 10/22/2024 11:59 PM CDT Hospital Encounter [facility] MRI [address] [place], [place] [id number] Postlaminectomy syndrome, not elsewhere classified; Low back pain, unspecified back pain laterality, unspecified chronicity, unspecified whether sciatica present; Other chronic pain; Radiculopathy, lumbosacral region; Arthrodesis status; Paresthesia of skin Discharge Disposition: Discharge to home or self care 09/20/2024 4:30 PM CDT Telemedicine [facility] [address] [place] [address] Sean Mancia MD Bipolar 1 disorder [...] week 10/05/2023 How often do you attend [facility] or [facility] services? More than 4 times per year 10/05/2023 Do you belong to any clubs o r organizations such as restorationism groups, unions, fraternal or athletic groups, or [...] Recorded Patient Health Questionnaire-2 Score 6 10/05/2023 [facility] Occupat ional Health - Occupational Stress [...] place to sleep or slept in a long-term (including now)? No 08/17/2023 Personal Safety Answer Date Recorded Have you ever been in or are you currently in a harmful physical or emotional relationship or is someone making you feel afraid or unsafe? Denies 11/18/2022 Sex and Gender Information Value Date Recorded Sex Assigned at Not on file Legal Sex Male 3:35 AM SET UP AND LAY OUT INSPECTOR Gender Identity Male 09/16/2022 11:22 AM CDT Sexual Orientation Straight 09/16/2022 11 :21 AM CDT Obstetrics History Last Filed Vital Signs Vital Sign Reading Time Taken Comments Blood Pressure 137/74 06/06/2024 9:20 AM SET UP AND LAY OUT INSPECTOR Pulse 77 06/06/2024 9:20 AM SET UP AND LAY OUT INSPECTOR Temperature 36.8 C (98.2 F) 06/06/2024 9:20 AM SET UP AND LAY OUT INSPECTOR Respiratory Rate 14 11/18/2022 10:2 0 AM CDT Oxygen Saturation 96% 06/06/2024 9:20 AM SET UP AND LAY OUT INSPECTOR Inhaled Oxygen Concentration - - Weight 103.7 kg (228 lb 9.6 oz) 06/06/2024 9:20 AM SET UP AND LAY OUT INSPECTOR Height 175.3 cm (5' 9) 06/06/2024 9:20 AM SET UP AND LAY OUT INSPECTOR Body Mass Index 33.76 06/06/2024 9:20 AM SET UP AND LAY OUT INSPECTOR Plan of Treatment Health Maintenance Due Date [...] Discontinued 05/26/2007 Medical Devices Implanted Type Area Rural Mail Contractor Device Identifier Shelf Expiration Date Model / Serial / Lot Medtronic Sofamor Danek [id number] Infuse 18mm 26mm Absorbable Sponge Sterile Water Syringe Needle - [id number] Implanted:Qty: 1 on 10/10/2019 by Emanuel Baum MD at [facility] N/A: Spine Lumbar Medtronic Inc 01/02/2020 [id number] / / [id number] Medtronic Inc [id number] 8.5mm 80mm Multiaxial Cannulated Thoracolumbar Screw Bone - [id number] Implanted:Qty: 2 on 10/10/2019 by Emanuel Baum MD at [facility] N/A: Spine Lumbar Medtronic Inc [id number] / / Medtronic Inc [id number] Cd Horizon 6mm 500mm Line Straight Ronnie Spinal Titanium Nonsterile - [id number] Implanted:Qty: 1 on 10/10/2019 by Emanuel Baum MD at [facility] N/A: Spine Lumbar Medtronic Inc [id number] / / Medtronic Sofamor Danek [id number] Infuse 18mm 26mm Absorbable Sponge Sterile Water Syringe Needle - [id number] Implanted:Qty: 1 on 10/10/2019 by Emanuel Baum MD at [facility] N/A: Spine Lumbar Medtronic Inc 01/02/2020 [id number] / / [id number] Medtronic Sofamor Danek [id number] Mastergraft Block Void Filler Substitute 20ml Bone Graft Matrix - [id number] Implanted:Qty: 1 on 10/10/2019 by Emanuel Baum MD at [facility] N/A: Spine Lumbar Medtronic Inc 05/03/2020 [id number] / / [id number] Allosource [id number] Crushed Chip Frozen Graft 30ml Bone Cancellous - [id number] Implanted:Qty: 1 on 10/10/2019 by Emanuel Baum MD at [facility] N/A: Spine Lumbar Allosource 01/01/2024 [id number] / / [id number] Allosource [id number] Crushed Chip Frozen Graft 30ml Bone Cancellous - [id number] Implanted:Qty: 1 on 10/10/2019 by Emanuel Baum MD at [facility] N/A: Spine Lumbar Allosource 01/01/2024 [id number] / / [id number] Allosource [id number] Crushed Chip Frozen Graft 30ml Bone Cancellous - [id number] Implanted:Qty: 1 on 10/10/2019 by Emanuel Baum MD at [facility] N/A: Spine Lumbar Allosource 12/19/2023 [id number] / / [id number] Medtronic Sofamor Danek [id number] Solera Cd Horizon 6.5mm 50mm Multiaxial Spine Screw Bone Cocr - [id number] Implanted:Qty: 4 on 10/10/2019 by Emanuel Baum MD at [facility] N/A: Spine Lumbar Medtronic Inc [id number] / / Medtronic Sofamor Danek [id number] Solera Cd Horizon 6.5mm 55mm Multiaxial Spine Screw Bone Cocr - [id number] Implanted:Qty: 4 on 10/10/2019 by Emanuel Baum MD at [facility] N/A: Spine Lumbar Medtronic Inc [id number] / / Medtronic Sofamor Danek [id number] Cd Horizon Break Off Spinal Screw Set Titanium Nonsterile 5.5 Mm - [id number] Implanted:Qty: 10 on 10/10/2019 by Emanuel Baum MD at [facility] N/A: Spine Lumbar Medtronic Inc [id number] / / Procedures Procedure Name Priority Date/Time Associated Diagnosis Comments MRI LUMBAR SPINE WO CONTRAST Schedule Routine, Read Routine (OP Routine) 10/22/2024 7:02 AM CDT Postlaminectomy syndrome, not elsewhere classified Low back pain, unspecified back pain laterality, unspecified chronicity, unspecified whether sciatica present Other chronic pain Radiculopathy, lumbosacral region Arthrodesis status Paresthesia of skin COLONOSCOPY 05/26/2007 12:00 AM SET UP AND LAY OUT INSPECTOR from Last 3 Months or Most Recently [...] Maycol Chaparro M.D. ELIESER T: Report ID: [id number] Reading Location: [id number] Procedure Note Maycol Chaparro MD - 10/24/2024 [...] slight arthropathic facet contact with exiting right G2mbxsn root. L3-4: Fused at this level. Bilateral [...] Maycol Chaparro M.D. ELIESER T: Report ID: [id number] Reading Location: [place] [address] us Not In File Miscellaneous IMG MRI PROCEDURES Fin al Result * COLONOSCOPY (05/26/2007 12:00 AM SET UP AND LAY OUT INSPECTOR) Anatomical Region Laterality Modality Other Narrative 05/26/2007 12:00 AM SET UP AND LAY OUT INSPECTOR Ordered by an unspecified provider. Procedure Note Provider, MD Babar - 05/26/2007 12:00 AM CST PROCEDURE REPORT Patient: MATI TSAI, PRIMITIVO Account: [id number] Room No: : 1960 Patient Type: OPA [...] 47-year-old male. PHYSICIAN: Dr. Gonzalez. INSTRUMENT USED: [employer] video endoscope. MEDICATIONS: Demerol 100, Versed 8. [...] Magnesia. 4. Anusol. 5. Repeat colonoscopy per [place] [employer] criteria recommendations. 6. Follow up [...] continue treatment forthe same. Davy Gonzalez M.D. GARYSON/dyan TD: 05/27/2007 09:52 CC: Dr. Jo. us Historical Provider ENDOSCOPY PROCEDURES Corrie l Result from Last 3 Months or Most Recently Relevant to Health Maintenance Insurance [employer] MEDICARE HMO HU[employer] [place] [address] [place] [address] MEDICARE HMO Advance Directives For more information, please contact: [phone] * Full Code (Latest Code Status on File) Date Activated Date Inactivated Comments 10/10/2019 7:47 AM 10/13/2019 5:12 PM Care Teams Drafter Structural Relationship Specialty Start Date End Date Reji Villafana DO [address] [address] PCP - General Internal Medicine 10/03/24
--- OUTSIDE RECORDS SUMMARY | 2024-11-28 02:03 | XMS_ITS | Referral Summary ---
Author Organization [facility] Address [address] [place] [address] Care Team Providers Care Preparer Making Department Name Role Phone Reji Villafana DO Primary Care Provider [phone] Encounters Date Type Department Care Team Description 10/25/2024 4:00 PM CDT Telemedicine [facility] [address] [address] Sean Mancia MD Bipolar 1 disorder (HCC) (Primary Dx); Panic disorder; Anxiety and depression; Generalized anxiety disorder 10/22/2024 6:11 AM CDT - 10/22/2024 11:59 PM CDT Hospital Encounter [facility] [address] [address] Postlaminectomy syndrome, not elsewhere classified; Low back pain, unspecified back pain laterality, unspecified chronicity, unspecified whether sciatica present; Other chronic pain; Radiculopathy, lumbosacral region; Arthrodesis status; Paresthesia of skin Discharge Disposition: Discharge to home or self care 09/20/2024 4:30 PM CDT Telemedicine [facility] [address] [address] Sean Mancia MD Bipolar 1 [...] 04/29/2023 Assessment & Plan (04/29/2023 11:05 AM GLASS BLOWER): Not treated for LAUREEN. Has diagnosis on [...] 01/28/2023 Assessment & Plan (04/29/2023 11:02 AM GLASS BLOWER): Acute on chronic, persistent. Hydroxyzine effective in the past - he would like to re-start. Start Hydroxyzine as discussed. Also starting Cymbalta 30 mg daily. Monitor in 6 weeks. Call the office if symptoms worsen. Supportive counseling provided to display empathy and validation. Bipolar 1 disorder 12/29/2022 Assessment & Plan (04/29/2023 12:33 PM GLASS BLOWER): Chronic, stable. No medication changes at this time. Continue to monitor at interval. Generalized anxiety disorder 12/29/2022 Assessment & Plan (04/29/2023 10:53 AM GLASS BLOWER): Acute on chronic, persistent. 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 Continue to monitor at interval. Hypertension 10/07/2019 Hyperlipidemia 10/07/2019 LAUREEN (obstructive sleep apnea) 10/07/2019 Anxiety and depression 10/07/2019 GERD (gastroesophageal reflux disease) 0 Spinal stenosis of lumbar re gion with neurogenic claudication 06/20/2019 Overview (06/20/2019): Added automatically from request for surgery [id number] Spinal stenosis of lumbar region 03/30/2018 Social [...] often do you attend chur ch or adventism services? More than 4 times per year 10/05/2023 Do you belong to any clubs o r organizations such as rastafari groups, unions, fraternal or athletic groups, or [...] Recorded Patient Health Questionnaire-2 Score 6 10/05/2023 [facility] [place] of Occupat ional Health - Occupational Stress [...] place to sleep or slept in a assisted (including now)? No 08/17/2023 Personal Safety Answer Date Recorded Have you ever been in or are you currently in a harmful physical or emotional relationship or is someone making you feel afraid or unsafe? Denies 11/18/2022 Sex and Gender Information Value Date Recorded Sex Assigned at Not on file Legal Sex Male 3:35 AM GLASS BLOWER Gender Identity Male 09/16/2022 11:22 AM CDT Sexual Orientation Straight 09/16/2022 11 :21 AM CDT Last Filed Vital Signs Vital Sign Reading Time Taken Comments Blood Pressure 137/74 06/06/2024 9:20 AM GLASS BLOWER Pulse 77 06/06/2024 9:20 AM GLASS BLOWER Temperature 36.8 C (98.2 F) 06/06/2024 9:20 AM GLASS BLOWER Respiratory Rate 14 11/18/2022 10:2 0 AM CDT Oxygen Saturation 96% 06/06/2024 9:20 AM GLASS BLOWER Inhaled Oxygen Concentration - - Weight 103.7 kg (228 lb 9.6 oz) 06/06/2024 9:20 AM GLASS BLOWER Height 175.3 cm (5' 9) 06/06/2024 9:20 AM GLASS BLOWER Body Mass Index 33.76 06/06/2024 9:20 AM GLASS BLOWER Plan of Treatment Not on file Medical Devices Implanted Type Area Rail Loader Device Identifier Shelf Expiration Date Model / Serial / Lot MedProteoMediX Danek [id number] Infuse 18mm 26mm Absorbable Sponge Sterile Water Syringe Needle - [id number] Implanted:Qty: 1 on 10/10/2019 by Emanuel Baum MD at [facility] N/A: Spine Lumbar Medtronic Inc 01/02/2020 [id number] / / [id number] Medtronic Inc [id number] 8.5mm 80mm Multiaxial Cannulated Thoracolumbar Screw Bone - [id number] Implanted:Qty: 2 on 10/10/2019 by Emanuel Baum MD at [facility] N/A: Spine Lumbar Medtronic Inc [id number] / / Medtronic Inc [id number] Cd Horizon 6mm 500mm Line Straight Ronnie Spinal Titanium Nonsterile - [id number] Implanted:Qty: 1 on 10/10/2019 by Emanuel Baum MD at [facility] N/A: Spine Lumbar Medtronic Inc [id number] / / Medtronic Sofamor Danek [id number] Infuse 18mm 26mm Absorbable Sponge Sterile Water Syringe Needle - [id number] Implanted:Qty: 1 on 10/10/2019 by Emanuel Baum MD at [facility] N/A: Spine Lumbar Medtronic Inc 01/02/2020 [id number] / / [id number] Medtronic Sofamor Danek [id number] Mastergraft Block Void Filler Substitute 20ml Bone Graft Matrix - [id number] Implanted:Qty: 1 on 10/10/2019 by Emanuel Baum MD at [facility] N/A: Spine Lumbar Medtronic Inc 05/03/2020 [id number] / / [id number] Allosource [id number] Crushed Chip Frozen Graft 30ml Bone Cancellous - [id number] Implanted:Qty: 1 on 10/10/2019 by Emanuel Baum MD at [facility] N/A: Spine Lumbar Allosource 01/01/2024 [id number] / / [id number] Allosource [id number] Crushed Chip Frozen Graft 30ml Bone Cancellous - [id number] Implanted:Qty: 1 on 10/10/2019 by Emanuel Baum MD at [facility] N/A: Spine Lumbar Allosource 01/01/2024 [id number] / / [id number] Allosource [id number] Crushed Chip Frozen Graft 30ml Bone Cancellous - [id number] Implanted:Qty: 1 on 10/10/2019 by Emanuel Baum MD at [facility] N/A: Spine Lumbar Allosource 12/19/2023 [id number] / / [id number] Medtronic Sofamor Danek [id number] Solera Cd Horizon 6.5mm 50mm Multiaxial Spine Screw Bone Cocr - [id number] Implanted:Qty: 4 on 10/10/2019 by Emanuel Baum MD at [facility] N/A: Spine Lumbar Medtronic Inc [id number] / / Medtronic Sofamor Danek [id number] Solera Cd Horizon 6.5mm 55mm Multiaxial Spine Screw Bone Cocr - [id number] Implanted:Qty: 4 on 10/10/2019 by Emanuel Baum MD at [facility] N/A: Spine Lumbar Medtronic Inc [id number] / / Medtronic Sofamor Danek [id number] Cd Horizon Break Off Spinal Screw Set Titanium Nonsterile 5.5 Mm - [id number] Implanted:Qty: 10 on 10/10/2019 by Emanuel Baum MD at [facility] N/A: Spine Lumbar Medtronic Inc [id number] / / Procedures Procedure Name Priority Date/Time Associated Diagnosis Comments MRI LUMBAR SPINE WO CONTRAST Schedule Routine, Read Routine (OP Routine) 10/22/2024 7:02 AM CDT Postlaminectomy syndrome, not elsewhere classified Low back pain, unspecified back pain laterality, unspecified chronicity, unspecified whether sciatica present Other chronic pain Radiculopathy, lumbosacral region Arthrodesis status Paresthesia of skin COLONOSCOPY 05/26/2007 12:00 AM GLASS BLOWER from Last 3 Months or Most Recently [...] Maycol Chaparro M.D. ELIESER T: Report ID: [id number] Reading Location: [place] [address] Procedure Note Maycol Chaparro MD - 10/24/2024 [...] slight arthropathic facet contact with exiting right S8nsshy root. L3-4: Fused at this level. Bilateral [...] signed by Maycol MON T: Report ID: [id number] Reading Location: [place] [address] us Not In File Miscellaneous IMG MRI PROCEDURES Fin al Result * COLONOSCOPY (05/26/2007 12:00 AM GLASS BLOWER) Anatomical Region Laterality Modality Other Narrative 05/26/2007 12:00 AM GLASS BLOWER Ordered by an unspecified provider. Procedure Note Provider, MD Babar - 05/26/2007 12:00 AM CST PROCEDURE REPORT Patient: MATI TSAI III Account: [id number] Room No: : 1960 Patient Type: OPA [...] Magnesia. 4. Anusol. 5. Repeat colonoscopy per [employer] [employer] criteria recommendations. 6. Follow up [...] Advance Directives For more information, please contact: [phone] * Full Code (Latest Code Status on File) Date Activated Date Inactivated Comments 10/10/2019 7:47 AM 10/13/2019 5:12 PM Care Teams Preparer Making Department Relationship Specialty Start Date End Date Reji Villafana DO [address] [place] [id number] PCP - General Internal Medicine 10/03/24
--- OUTSIDE RECORDS SUMMARY | 2024-11-28 02:03 | XMS_ITS | Clinical Summary ---
Author Organization [facility] [employer] Address [address] [place] [address] Care Team Providers Care Boomswing Operator Name Role Phone Unavailable Primary Care Provider Unavailabl e Source Comments [facility] [employer],non-owned Affiliates and Associated Physician Practices is amultiple site organization consisting of ambulatory clinics and hospital sitesin [place], [place], [place] and [place]. This disclosure is being madepursuant to the Care Everywhere program and may not contain all information available regarding this patient. Last updated 18.[facility] [employer] Social History Tobacco Use Types Packs/Day Years Used Date Smoking Tobacco: Never Assessed Sex and Gender Information Value Date Recorded Sex Assigned at Not on file Legal Sex Male 1:06 PM PROSPECTING DRILLER Gender Identity Not on file Sexual Orientation [...] age to complete this topic Insurance [facility] [place], [place] [id number] [place] [address] * Guarantor: E-SCREEN,SOIL Account Type Relation to Patient Date of Phone Billing Address Company Employer [employer] [address]
--- OUTSIDE RECORDS SUMMARY | 2024-11-28 02:03 | XMS_ITS | Continuity of Care Document ---
Author Organization [facility] Address [address] [place] [address] [address] [place] [address] Phone Care Team Providers Care Arranging Funeral Director Name Role Phone Brendon MERCADO, Thomas Unavailable Unavaila ble Procedures Procedure Date CATARACT SURG W/IOL, 1 STAGE CATARACT SURG W/IOL, 1 STAGE NON MED NEC IOL PREOP OFFICE/OUTPATIENT VISIT, [facility] OPHTHALMIC BIOMETRY OPHTHALMIC BIOMETRY Advance Directives Directive Yes / No Effective Date File Name No Information Encounters Encounter Description Practice Location Reason(s) For Visit Diagnoses Date Provider Providers Copied on Encounter [facility], [address] [place], [place] [address] [address], [place], [place], [id number], tel:[phone] [address] [place] [address] [facility] No Information 7 Brendon Guzman. [address], [address], [place], [place], [id number], [place]. tel:[phone] Referring Provider: Thomas vernon, [address], [place], [address] . tel:[phone] [facility], [address] [place] [address] [address], [place], [place], [id number], tel:[phone] [address] [place] [address] [facility] No Information 7 Brendon Guzman. [address], [address], [place], [place], [id number], [place]. tel:[phone] Referring Provider: Thomas vernon, [address], [place], [address] . tel:[phone] [facility], [address] [place] [address], [id number], tel:[phone] [facility] No Information 7 Krishnasamy Thomas. [address], [address], [id number], . tel:[phone] Referring Provider: Thomas vernon, [address], [place], [address] . tel:[phone] OFFICE/OUTPAT IENT VISIT, [facility], [address] [place] [address], [id number], tel:[phone] Oph Consult [facility] [place] No Information 7 Krishnasamy Thomas. [address], [address], [place], [place], [id number], . tel:[phone] Referring Provider: Thomas vernon, [address], [place], [address] . tel:[phone] Family History Family Member Type Diagnosis Age At Onset No Information Payers Payer name Insurance type Covered green party ID Authoriza harley(s) [facility] [id number] Social History Type Description Quantity Date Captured [...]
--- OUTSIDE RECORDS SUMMARY | 2024-11-28 02:03 | XMS_ITS | Patient Health Record ---
Author Organization [facility] Address [address] [place], [place] [id number] Care Team Providers Care Handicrafts Teacher Name Role Phone CARLOS HAWKINS Unavailable [phone] Reji Villafana Unavailable Unavailable Allergies No Known Allergies Reason For Referral Reason [employer] REFERRAL Diagnosis 1 Pain in right toe(s) (M79.674) Diagnosis 2 Pain in left toe(s) (M79.675) Referred Organization [facility] Referred Provider CARLOS CAMPBELL Referred Address [address],[place], [place],[id number], Referred Provider Specialty Podiatry Referral Priority Routine Medications Medication SIG (Take, Route, Frequency, Duration) Notes Start Date End Date Status Terbinafine HCl 250 MG TAKE 1 TABLET BY MOUTH ONCE DAILY Oral; Duration: 30 Days Active Tamsulosin HCl 0.4 MG TAKE 1 CAPSULE BY MOUTH ONCE DAILY Oral; Duration: 30 Days Active lamoTRIgine 25 MG Oral; Duration: 30 Days Active Losartan Potassium 100 MG Oral; Duration : 30 Days Active Gabapentin 300 MG Oral; Duration: 30 Days Active QUEtiapine Fumarate 200 MG Oral; Duratio n: 30 Days Active Pantoprazole Sodium 40 MG Oral; Duration : 30 Days Active clonazePAM 0.5 MG TAKE 1 TABLET BY DARI TH ONCE DAILY NEEDED FOR ANXIETY Oral; Duration: 30 Days Active Hydroxychloroquine Sulfate 2 00 MG TAKE 2 TABLETS (400 MG) BY MOUTH DAILY Oral; Duration: 30 Days Active Vital Signs Height-cm 172.72 cm 09/12/2024 Weight-kg 102.06 kg 09/12/2024 Height 68 in 09/12/2024 Weight 225 lbs 09/12/2024 BMI 34.21 kg/m2 09/12/2024 Encounters Encounter Location Date Provider Diagnosis [facility] [address] [place] [id number] 02/15/2024 CARLOS SNOOK Tinea unguium B35.1 ; Pain in right toe(s) M79.674 ; Pain in left toe(s) M79.675 and Atherosclerosis of [place] arteries of extremities with intermittent claudication, bilateral legs I70.213 [facility] [address] [place] [id number] 06/13/2024 CARLOS SNOOK Other hereditary and idiopathic neuropathies G60.8 ; Tinea unguium B35.1 ; Pain in right toe(s) M79.674 and Pain in left toe(s) M79.675 [facility] [address] [place] [id number] 09/12/2024 CARLOS SNOOK Other hereditary and idiopathic neuropathies G60.8 ; Tinea unguium B35.1 ; Pain in right toe(s) M79.674 ; Pain in left toe(s) M79.675 and Acquired keratosis [keratoderma] palmaris et plantaris L85.1 Assessments Encounter Date Diagnosis (ICD Code) Assessment Notes Treatment Notes Treatment Clinical Notes Section Notes 02/15/2024 Tinea unguium (ICD-10 - B35.1) FUNGAL TOENAILS: Discussed various treatment options for fungal toenails including debridement, topical antifungals, oral antifungals, toenail avulsion, or toenail matrixectomy. NAIL DEBRIDEMENT: Nails 1-5 Bilateral were debrided extensively with nail nippers and emery board, reducing length and girth to pink healthy tissue with any subungual debris and necrotic tissue removed 02/15/2024 Pain in right toe(s) (ICD-10 - M79.674) 06/13/2024 Tinea unguium (ICD-10 - B35.1) FUNGAL TOENAILS: Discussed various treatment options for fungal toenails including debridement, topical antifungals, oral antifungals, toenail avulsion, or toenail matrixectomy. NAIL DEBRIDEMENT: Nails 1-5 Bilateral were debrided extensively with nail nippers and emery board, reducing length and girth to pink healthy tissue with any subungual debris and necrotic tissue removed 06/13/2024 Other hereditary and idiopathic neuropathies (ICD-10 - G60.8) Neuropathy: I discussed anti-inflammato ry treatment options and protecting the area with the patient. I educated the patient on icing and stretching, supportive shoegear, and the use of orthotic devices and bracing. Patient will follow with his Pain Mangement doctor for his back. Continue Lyrica as directed by his PCP. Recommend topical Voltargen gel at night time for pain 09/12/2024 Tinea unguium (ICD-10 - B35.1) FUNGAL TOENAILS: Discussed various treatment options for fungal toenails including debridement, topical antifungals, oral antifungals, toenail avulsion, or toenail matrixectomy. NAIL DEBRIDEMENT: Nails 1-5 Bilateral were debrided extensively with nail nippers and emery board, reducing length and girth to pink healthy tissue with any subungual debris and necrotic tissue removed 09/12/2024 Other hereditary and idiopathic neuropathies (ICD-10 - G60.8) Neuropathy: I discussed anti-inflammato ry treatment options and protecting the area with the patient. I educated the patient on icing and stretching, supportive shoegear, and the use of orthotic devices and bracing. Patient will follow with his Pain Mangement doctor for his back. Continue Lyrica as directed by his PCP. Recommend topical Voltargen gel at night time for pain 09/12/2024 Pain in right toe(s) (ICD-10 - M79.674) 06/13/2024 Pain in right toe(s) (ICD-10 - M79.674) 02/15/2024 Pain in left toe(s) (ICD-10 - M79.675) 02/15/2024 Atherosclerosis of [place] arteries of extremities with intermittent claudication, bilateral legs (ICD-10 - I70.213) 06/13/2024 Pain in left toe(s) (ICD-10 - M79.675) 09/12/2024 Pain in left toe(s) (ICD-10 - M79.675) 09/12/2024 Acquired keratosis [keratoderma] palmaris et plantaris (ICD-10 - L85.1) A total of 2 corns or calluses, as described in the note above, were cut and pared utilizing a #15 blade Plan Of Treatment Next Appt Details Provider Name:CARLOS HAWKINS, 11:10:00 AM, [address], [facility], [place], [place], [id number], Insurance Providers Payer Name Payer Address Payer Phone Subscriber Number Group Number Insured Name Patient Relationship to Insured Coverage Start Date Coverage End Date [address] [address] [phone] [id number] Paras Coreas Self - patient is the insured Medical (General) History Medical History History ICD Code acid reflux Leg/Feet cramps Arthritis Back Trouble Psychiatric Disorder rheumatoid arthritis hypertension neuropathy Surgical History Surgery Date(Month/Year) back surgery knee surgery
[2024-11-28 14:14] VITALS: BP 153/71; PULSE 82; TEMP 36.9; O2SAT 98
--- NOTE | 2024-11-28 14:25 | WPDHPUPDATE1 ---
History and Physical Update Update Date/Time: 11/28/24 14:25 History and Physical has been reviewed, including an updated exam of the patient. There are NO changes in the patient's condition. Risks, benefits, and alternatives have been discussed and questions answered. Patient agrees to proceed with procedure.
--- NOTE | 2024-11-28 14:28 | P.OP_ITS ---
Procedure Note - Detailed Date of Procedure 11/28/24 Pre-op Diagnosis Lumbosacral radiculopathy, lumbar spinal stenosis Post-op Diagnosis Same Procedure Performed Right Lumbar Transforaminal Epidural Steroid Injection under Fluoroscopic Guidance and with Contrast Control at L4-5, L5-S1. Surgeon Alirio Price MD Anesthesia Local Description of Procedure INFORMED CONSENT: Risks, benefits and alternatives to the procedure were discussed in detail with the patient who expressed explicit understanding and consent to proceed. Patient was informed verbally and in written form regarding the risks associated with the procedure including the low risk of serious infection, bleeding/bruising, allergic reaction, nerve or organ injury, paralysis, procedural site pain or discomfort, worsening pain and/or mobility, failure to treat and/or disfigurement. The patient expressed explicit understanding and consent to proceed. All materials required for the procedure were available prior to procedure start. Site and side was marked prior to procedure and confirmed in the presence of the patient. PROCEDURE IN DETAIL: The patient was brought to the procedural suite and placed in the prone position. Patient was made comfortable with use of pillows under the head/chest, hips and ankles. Skin overlying the injection site was prepared broadly with ChloraPrep applicator and draped in a sterile manner. Aseptic technique was employed throughout. The endplates of the vertebral body at the site of interest were aligned in the AP view. Ipsilateral oblique angulation was utilized to better visualize the neuroforamen of interest. Local anesthesia was established by infiltration with approximately 5 mL of 0.5% PF lidocaine via a 1-1/2 inch 27-gauge needle. A 22-gauge 3.5 inch Shellie (pencil point) spinal needle was advanced until the needle approached the 6 o'clock position on the pedicle just superior to the exiting nerve root. on the right at L4-5. Lateral view was utilized to confirm appropriate position of the needle tip within the superior and posterior portion of the respective foramen. In an AP view, 1 mL of Omnipaque 300 contrast medium was injected after negative aspiration for CSF, blood or other bodily fluid, showing appropriate neurogram without evidence of intravascular or intrathecal spread of contrast. Digital subtraction imaging was used with an additional 1ml of the same contrast medium to confirm absence of intravascular contrast spread. A 1mL solution containing 5 mg of dexamethasone was injected after negative repeat aspiration. Appropriate spread of the injectate was confirmed with washout of previously injected contrast. No parasthesias were elicited. Needle was removed completely intact without difficulty. The same exact procedure was repeated for all remaining levels on the ipsilateral side, right L5-S1 neuroforamen, modified as necessary to accommodate for the new target location with identical findings and results and no evidence of complication. Images were saved and documented in the patient chart. Patient's skin was cl eaned and sterile bandage applied. The patient tolerated the procedure well. The patient was transported to the recovery area in stable condition where they were observed for an appropriate amount of time prior to discharge, without evidence of complication. The patient was instructed to avoid excessive activity for the next 48 hours, including climbing and frequent use of stairs. Showers only for 48 hours. They were instructed not to drive or operate heavy machinery for 24 hours. They are to monitor for severe headaches, fevers, chills, night sweats, erythema/swelling at the site or any other signs of infection, bleeding/bruising, bowel or bladder changes as well as new pain, weakness or numbness in the upper or lower extremity. Should they notice these changes, they are instructed to call our office immediately or report directly to the nearest Emergency Department if no answer or if after posted office hours. COMPLICATIONS: None COMMENTS: None CONTRAST WASTED: 26 mL Omnipaque 300. Complications No immediate complications Condition Stable Disposition Same day [facility] Billing Surgery - Charge Forward: Surgery Billing
[2024-11-28 15:12] VITALS: BP 155/76; PULSE 75; O2SAT 94
[2024-11-28 15:17] VITALS: BP 152/83; PULSE 71; O2SAT 94
[2024-11-28] MEDS: dexAMETHasone SOD PHOS INJ 10 MG/ML 1 ML VIAL XX (15:18)
[2024-11-28] MEDS: LIDOCAINE 2% PF LOCAL INJ 5 ML VIAL 2 ML INFILTRATE (15:19)
[2024-11-28] MEDS: LIDOCAINE 1% PF INJ 5 ML VIAL 3 ML INFILTRATE (15:19)
[2024-11-28 15:23] VITALS: BP 165/94; PULSE 73; O2SAT 95
[2024-11-28 15:25] VITALS: BP 144/71; PULSE 71
== END 2024-11-28 15:43 | disposition home or self-care (01) ==
PROVIDERS: PCP Internal Medicine; Visit Provider Anesthesiology Pain Medicine
PROC: (CPT 64483; principal; 2024-11-28 15:00)
DX: M48.07 Spinal stenosis, lumbosacral region (principal); M54.17 Radiculopathy, lumbosacral region
CPT/HCPCS: 64483; 64484; 99199; J1100; J2003; Q9965

== ENCOUNTER 2025-02-03 13:49 | Emergency (ER) | payer OTHER, MEDICARE, SELFPAY ==
--- OUTSIDE RECORDS SUMMARY | 2016-09-23 07:00 | XMS_ITS | Continuity of Care Document ---
Author Organization Ophthalmology [facility] Address [address] [place] [address] [address] [place] [address] Phone Care Team Providers Care Sports Activities Foul Judge Name Role Phone Brendon MERCADO, Thomas Unavailable Unavaila ble Procedures Procedure Date CATARACT SURG W/IOL, 1 STAGE CATARACT SURG W/IOL, 1 STAGE NON MED NEC IOL PREOP OFFICE/OUTPATIENT VISIT, [facility] OPHTHALMIC BIOMETRY OPHTHALMIC BIOMETRY Advance Directives Directive Yes / No Effective Date File Name No Information Encounters Encounter Description Practice Location Reason(s) For Visit Diagnoses Date Provider Providers Copied on Encounter Ophthalmology [facility], 1928–1983, [address] [place], [place] [address], [place], [place], [id number], tel:[phone] [address] [place] [address] Eye Surgery [place] No Information 7 Brendon Guzman. [address], [address], [place], [place], [id number], [place]. tel:[phone] Referring Provider: Thomas vernon, [address], [place], [address] . tel:[phone] [facility], 1928–[facility], [address] [place] [address] [address], [place], [place], [id number], tel:[phone] [address] [place] [address] Eye Surgery [place] No Information 7 Brendon Guzman. [address], [address], [place], [place], [id number], [place]. tel:[phone] Referring Provider: Thomas vernon, [address], [place], [address] . tel:[phone] [facility], [address] [place] [address], [id number], tel:[phone] OPH CONSULT [facility]SH [facility] No Information 7 Krishnasamy Thomas. [address], [address], [place], [id number], . tel:[phone] Referring Provider: Thomas vernon, [address], [place], [address] . tel:[phone] OFFICE/OUTPAT IENT VISIT, [facility], [address] [place] [address], [id number], tel:[phone] Oph Consult [facility] [place] No Information 7 Krishnasamy Thomas. [address], [address], [place], [place], [id number], . tel:[phone] Referring Provider: Thomas vernon, [address], [place], [address] . tel:[phone] Family History Family Member Type Diagnosis Age At Onset No Information Payers Payer name Insurance type Covered green party ID Authoriza harley(s) [facility] [id number] Social History Type Description Quantity Date Captured Comments Sex Male Smoking Status No Information Chief Complaint And Reason For Visit No Information Reason For Referral Reason For Referral No Information History Of Present Illness Encounter Date Complaint History Of Prese nt Illness No Information Functional Status Date Functional Assessmen t No Information Instructions Date Instruction Additional Infor mation No Information Assessments Type Assessment Date No Information Patient Care Teams Name Effective Dates (start - stop) Status Members No Information
--- OUTSIDE RECORDS SUMMARY | 2023-09-07 04:45 | XMS_ITS | Continuity of Care Document ---
Author Organization 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 Name Role Phone Sarah JARAMILLO Leonarda Unavailable Unavailable Allergies, Adverse Reactions, Alerts Substance Reaction Status Criticality No Known Allergies Active No Inform ation Medications Medication Instructions Dosage Effective Dates (start - stop) Status Comments zolpidem 5 mg tablet take 1 tablet by oral route every day at bedtime 5 MG - Active clonazepam 0.5 mg tablet take 0.5 tablet by oral route 3 times every day 0.25 MG - Active hydroxychloroquine 200 mg tablet take 1 tablet by oral route 2 times every day 200 MG - Active methotrexate sodium 2.5 mg tablet take 1 tablet by oral route 4 times every week 2.5 MG - Active duloxetine 30 mg capsule,delayed release take 2 capsule by oral route every day 60 MG - Active pantoprazole 40 mg tablet,delayed release take 1 tablet by oral route every day 40 MG - Active losartan 100 mg tablet take 1 tablet by oral route every day 100 MG - Active lamotrigine 25 mg tablet take 2 tablet b y oral route every day 50 MG - Active pregabalin 75 mg capsule take 1 capsule by oral route every day 75 MG - Active tamsulosin 0.4 mg capsule take 1 capsule by oral route every day 1/2 hour following the same meal each day 0.4 MG - Active hydroxyzine HCl 25 mg tablet take 2 tablet by oral route 3 times every day as needed 50 MG - Active Procedures Procedure Date SCODI, Retina Advance Directives Directive Yes / No Effective Date File Name No Information Encounters Encounter Description Practice Location Reason(s) For Visit Diagnoses Date Provider Providers Copied on Encounter [facility], [address], [place], [place], [id number], tel:[phone] [address] [facility] Professional Testing only (chief complaint) No Information 6 4 Sarah OD Leonarda. [address], [place], [place], [address], [place]. tel:[phone] Referring Provider: Dave Bear OD, [facility] [address] [place], [place], [address]. tel:[phone] [facility], [address], [place], [place], [id number], tel:[phone] [address] [place] No Information 0 4 Sarah OD Leonarda. [id number] [place] [address] [address], [place], [place], [address], [place]. tel:[phone] Family History Family Member Type Diagnosis Age At Onset No Information Payers Payer name Insurance type Covered republican ID Authornorya harley(s) [employer] Medicare CI [id number] Social History Type Description Quantity Date Captured Comments Alcohol Use Details No Caffeine Use Details 32 oz per day Tobacco Use Status Current non-smoker Smoking Status Never smoker Non-Smoking Tobacco Use Details : No Details Available : No Details Available Sex Male Chief Complaint And Reason For Visit From encounter dated '09/07/2023 09:45'. Testing only (chief complaint). Description: The 63 year old patient presents for a MAC OCT only per Dr. Bear. Reason For Referral Reason For Referral No Information History Of Present Illness Encounter Date Complaint History Of Prese nt Illness Testing only The 63 year old patient presents for a MAC OCT only per Dr. Bear. Functional Status Date Functional Assessmen t No Information Instructions Date Instruction Additional Infor mation No Information Assessments Type Assessment Date No Information Patient Care Teams Name Effective Dates (start - stop) Status Members No Information
--- OUTSIDE RECORDS SUMMARY | 2023-09-07 04:45 | XMS_ITS | Continuity of Care Document ---
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, [address], [place], [place], [address], tel:[phone] [address] [facility] Professional Testing only (chief complaint) No Information 6 4 Sarah OD Leonarda. [address], [place], [place], [address], [place]. tel:[phone] Referring Provider: Dave Bear OD, [facility] [address], [place], [address]. tel:[phone] [facility], [address], [place], [place], [address], tel:[phone] [address] [place] No Information 0 4 Sarah OD Leonarda. [id number] [place] [address] [address], [place], [place], [address], [place]. tel:[phone] Family History Family Member Type Diagnosis Age At Onset No Information Payers Payer name Insurance type Covered alliance party ID Authornorya harley(s) [employer] Medicare CI [id number] Social History Type Description Quantity Date Captured [...]
--- OUTSIDE RECORDS SUMMARY | 2024-12-12 06:10 | XMS_ITS ---
Author Organization [facility] Address [address] [place], [place] [id number] Care Team Providers Care Cash On Delivery Clerk Name Role Phone AMANDA CARLOS Unavailable [phone] Reji Villafana Unavailable Unavailable REASON FOR VISIT Patient presents for at-risk foot care . The patient has painful toenails and calluses that are causing difficulty with ambulation and shoegear. The onset is gradual Medications Medication SIG (Take, Route, Frequency, Duration) Notes Start Date End Date Status lamoTRIgine 25 MG Oral; Duration: 30 Days Active Hydroxychloroquine Sulfate 2 00 MG TAKE 2 TABLETS (400 MG) BY MOUTH DAILY Oral; Duration: 30 Days Active QUEtiapine Fumarate 200 MG Oral; Duratio n: 30 Days Active Gabapentin 300 MG Oral; Duration: 30 Days Active Losartan Potassium 100 MG Oral; Duration : 30 Days Active clonazePAM 0.5 MG TAKE 1 TABLET BY DARI ONCE DAILY NEEDED FOR ANXIETY Oral; Duration: 30 Days Active Terbinafine HCl 250 MG TAKE 1 TABLET BY MOUTH ONCE DAILY Oral; Duration: 30 Days Active Pantoprazole Sodium 40 MG Oral; Duration : 30 Days Active Tamsulosin HCl 0.4 MG TAKE 1 CAPSULE BY MOUTH ONCE DAILY Oral; Duration: 30 Days Active Encounters Encounter Location Date Provider Diagnosis [facility] [address] [place], [place] [id number] 12/12/2024 CARLOS HAWKINS Tinea unguium B35.1 ; Other hereditary and idiopathic neuropathies G60.8 ; Pain in right toe(s) M79.674 ; Pain in left toe(s) M79.675 and Acquired keratosis [keratoderma] palmaris et plantaris L85.1 Assessments Encounter Date Diagnosis (ICD Code) Assessment Notes Treatment Notes Treatment Clinical Notes Section Notes 12/12/2024 Tinea unguium (ICD-10 - B35.1) FUNGAL TOENAILS: Discussed various treatment options for fungal toenails including debridement, topical antifungals, oral antifungals, toenail avulsion, or toenail matrixectomy. NAIL DEBRIDEMENT: Nails 1-5 Bilateral were debrided extensively with nail nippers and emery board, reducing length and girth to pink healthy tissue with any subungual debris and necrotic tissue removed 12/12/2024 Other hereditary and idiopathic neuropathies (ICD-10 - [...] Voltargen gel at night time for pain 12/12/2024 Pain in right toe(s) (ICD-10 - M79.674) 12/12/2024 Pain in left toe(s) (ICD-10 - M79.675) 12/12/2024 Acquired keratosis [keratoderma] palmaris et plantaris (ICD-10 - L85.1) A total of 2 corns or calluses, as described in the note above, were cut and pared utilizing a #15 blade Plan Of Treatment Treatment Notes Assessment Notes Tinea unguium FUNGAL TOENAILS: Discussed various treatment options for fungal toenails including debridement, topical antifungals, oral antifungals, toenail avulsion, or toenail matrixectomy. NAIL DEBRIDEMENT: Nails 1-5 Bilateral were debrided extensively with nail nippers and emery board, reducing length and girth to pink healthy tissue with any subungual debris and necrotic tissue removed Other hereditary and idiopat hic neuropathies Neuropathy: I discussed anti-inflammatory treatment options and protecting the area with the patient. I educated the patient on icing and stretching, supportive shoegear, and the use of orthotic devices and bracing. Patient will follow with his Pain Mangement doctor for his back. Continue Lyrica as directed by his PCP. Recommend topical Voltargen gel at night time for pain Acquired keratosis [keratode rma] palmaris et plantaris A total of 2 corns or calluses, as described in the note above, were cut and pared utilizing a #15 blade Next Appt Details Follow Up: 10 - 12 weeks, Re ason: At-Risk Foot care, sooner if problems develop. Provider Name:CARLOS HAWKINS, 11:10:00 AM, [address], [address], [phone], Progress Notes * Paras TSAIDOB:1960 ( 64 yo M)Acc No.[id number]:12/12/2024 Patient: Paras SHAH Provider: Thor Hawkins DPM :1960 A ge:64 Y S ex:Male Date:12/12/2024 Address:[address] [place] [address] Subjective: * Chief Complaints: * 1 . Patient presents for at-risk foot care . The patient has painful toenails and calluses that are causing difficulty with ambulation and shoegear. The onset is gradual. * HPI: H PI: General care P atient presents to the office for at risk foot care. Patient states that their nails are thickened, elongated and painful. Patient states that it is aggravated by shoe gear. Onset is gradual. Patient denies being diabetic., Patient denies taking prescription blood thinners but does take a daily aspirin., Date last seen by Dr. Villafana was 11/2024., Initials [facility]. * ROS: G eneral / Constitutional: Patient denies c hills, fatigue, fever. C ardiovascular: Patient denies p alpatations, other vascular anomalies.?Patient complains of h air loss on legs, extremities cool. M usculoskeletal: Patient denies o rthotic use, broken foot bone, childhood foot problems. P atient complains of b ack problems. S kin: Patient denies h reny, rash. P atient complains of f ungal nails, nail changes, dry skin. N eurologic: Patient complains of b urning/ tingling, numbness. ? * Medical History: A megan reflux, Leg/Feet cramps, Arthritis, Back Trouble, Psychiatric Disorder, Rheumatoid arthritis, Hypertension, Neuropathy. * Surgical History: b ack surgery , knee surgery . * Social History: D rugs/Alcohol: D o you drink alcohol?: No. * Medications: T aking Tamsulosin HCl 0.4 MG Capsule TAKE 1 CAPSULE BY MOUTH ONCE DAILY Oral , Taking Pantoprazole Sodium 40 MG Tablet Delayed Release Oral , Taking clonazePAM 0.5 MG Tablet TAKE 1 TABLET BY MOUTH ONCE DAILY NEEDED FOR ANXIETY Oral , Taking Hydroxychloroquine Sulfate 200 MG Tablet TAKE 2 TABLETS (400 MG) BY MOUTH DAILY Oral , Taking lamoTRIgine 25 MG Tablet Oral , Taking Losartan Potassium 100 MG Tablet Oral , Taking Gabapentin 300 MG Capsule Oral , Taking QUEtiapine Fumarate 200 MG Tablet Oral , Taking Terbinafine HCl 250 MG Tablet TAKE 1 TABLET BY MOUTH ONCE DAILY Oral , Medication List reviewed and reconciled with the patient Objective: * Vitals: * Examination: C onstitutional: Constitutional T he patient is awake, alert, well developed, well groomed and well nourished. D ermatologic: Skin findings: S kin is thin, atrophic and lacking pedal hair. Hypertrophic / hyperkeratotic lesion: d orsal aspect of the left and right 5th digit. Nail pathology: N ails 1-5 bilateral are elongated, thick, discolored, and dystrophic with subungual debris. They are painful to palpation. ? V ascular: Dorsalis pedis pulse: 0 /4, bilateral. Posterior tibial pulse: 1 /4, bilaterally. Capillary refill: g reater than 3 seconds. Edema: N o edema, bilateral. N eurologic: Gross sensation p aresthesias to digits. ? M usculoskeletal: Muscle Strength M uscle strength is 5/5 in regards to dorsiflexion, plantarflexion, inversion, and eversion in bilateral lower extremities. ? Assessment: * Assessment: 1. O ther hereditary and idiopathic neuropathies - G60.8 (Primary) 2 . T inea unguium - B35.1 3 . P ain in right toe(s) - M79.674 4 . P ain in left toe(s) - M05.287 5 . A cquired keratosis [keratoderma] palmaris et plantaris - L85.1 Plan: * Treatment: 2. T inea unguium Notes: FUNGAL TOENAILS: Discussed various treatment options for fungal toenails including debridement, topical antifungals, oral antifungals, toenail avulsion, or toenail matrixectomy. NAIL DEBRIDEMENT: Nails 1-5 Bilateral were debrided extensively with nail nippers and emery board, reducing length and girth to pink healthy tissue with any subungual debris and necrotic tissue removed 3. A cquired keratosis [keratoderma] palmaris et plantaris Notes: A total of 2 corns or calluses, as described in the note above, were cut and pared utilizing a #15 blade * Follow Up: 1 0 - 12 weeks (Reason: At-Risk Foot care, sooner if problems develop.) * Billing Information: * Visit Code: 73199 Office Visit, Est Pt., Level 3. * Procedure Codes: * Electronic signature of CARLOS HAWKINS DPM on 02/03/2025 at 01:51 PM CDT Sign off status: Pending * Provider: Thor Hawkins DPM Date: 0 12/12/2024 Generated for Jeremy Han/Annie on: 01:51 PM CDT History and Physical Notes * HPI (History of Present Illness) Category Sub-Category Detail Notes Category Not es HPI General care Patient presents to the office for at risk foot care. Patient states that their nails are thickened, elongated and painful. Patient states that it is aggravated by shoe gear. Onset is gradual. Patient denies being diabetic., Patient denies taking prescription blood thinners but does take a daily aspirin., Date last seen by Dr. Villfaana was 11/2024., Initials [facility] Examination Category Sub-Category Detail Notes Category Not es Dermatologic Skin findings: Skin is thin, at rophic and lacking pedal hair Nail pathology: Nails 1-5 bilateral are elongated, thick, discolored, and dystrophic with subungual debris. They are painful to palpation Hypertrophic / hyperkeratotic lesion: do rsal aspect of the left and right 5th digit Neurologic Gross sensation paresthesias to digits Vascular Dorsalis pedis pulse: 0/4, bilateral Edema: No edema, bilateral Capillary refill: greater than 3 secon ds Posterior tibial pulse: 1/4, bilaterally Musculoskeletal Muscle Strength Muscle strength is 5/5 in regards to dorsiflexion, plantarflexion, inversion, and eversion in bilateral lower extremities Constitutional Constitutional The patient is a wake, alert, well developed, well groomed and well nourished
--- NOTE | ~2025-02-03 | XR_ITS ---
XR lumbar spine 2-3V Indication: pain/fall Comparison: None Findings: There are screws fixating the sacroiliac joints S1, L5 and L4 on L3, the hardware is intact, no acute fracture. Moderate to severe loss of disc height throughout. Soft tissues unremarkable Impression: No acute abnormality. Reviewed, dictated and finalized at location P. Impression: No acute abnormality.
--- NOTE | ~2025-02-03 | XR_ITS ---
EXAMINATION: XR wrist LT min 3V, 02/03/2025 14:25 CDT HISTORY: pain/fall, PAIN LATERAL AND MEDIAL COMPARISON: No comparisons available. Findings: No acute fracture or malalignment. No significant degenerative changes. Soft tissues unremarkable. Impression: No acute fracture or malalignment. Reviewed, dictated and finalized at location P. Impression: No acute fracture or malalignment.
--- OUTSIDE RECORDS SUMMARY | 2025-02-03 13:52 | XMS_ITS | Clinical Summary ---
Author Organization [facility] [employer] Address [address] [place] [address] Care Team Providers Care Software Engineer Sales Name Role Phone Unavailable Primary Care Provider Unavailabl e Source Comments [facility] [employer],non-owned Affiliates and Associated Physician Practices is amultiple site organization consisting of ambulatory clinics and hospital sitesin [place], [place] and [place]. This disclosure is being madepursuant to the Care Everywhere program and may not contain all information available regarding this patient. Last updated 18.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
--- OUTSIDE RECORDS SUMMARY | 2025-02-03 13:52 | XMS_ITS | Patient Health Record ---
Author Organization [facility] Address [address] [place], [place] [id number] Care Team Providers Care Golf Club Weigher Name Role Phone CARLOS HAWKINS Unavailable [phone] Reji Villafana Unavailable Unavailable Allergies No Known Allergies Reason For Referral Reason [employer] REFERRAL Diagnosis 1 Pain in right toe(s) (M79.674) Diagnosis 2 Pain in left toe(s) (M79.675) Referred Organization [facility] Referred Provider CARLOS CAMPBELL Referred Address [address],[place], [id number], Referred Provider Specialty Podiatry Referral Priority Routine Medications Medication SIG (Take, Route, Frequency, Duration) Notes Start Date End Date Status lamoTRIgine 25 MG Oral; Duration: 30 Days Active Hydroxychloroquine Sulfate 2 00 MG TAKE 2 TABLETS (400 MG) BY MOUTH DAILY Oral; Duration: 30 Days Active clonazePAM 0.5 MG TAKE 1 TABLET BY DARI TH ONCE DAILY NEEDED FOR ANXIETY Oral; Duration: 30 Days Active Terbinafine HCl 250 MG TAKE 1 TABLET BY MOUTH ONCE DAILY Oral; Duration: 30 Days Active QUEtiapine Fumarate 200 MG Oral; Duratio n: 30 Days Active Gabapentin 300 MG Oral; Duration: 30 Days Active Losartan Potassium 100 MG Oral; Duration : 30 Days Active Pantoprazole Sodium 40 MG Oral; Duration : 30 Days Active Tamsulosin HCl 0.4 MG TAKE 1 CAPSULE BY MOUTH ONCE DAILY Oral; Duration: 30 Days Active Vital Signs Height-cm 172.72 cm 09/12/2024 Weight-kg 102.06 kg 09/12/2024 Height 68 in 09/12/2024 Weight 225 lbs 09/12/2024 BMI 34.21 kg/m2 09/12/2024 Encounters Encounter Location Date Provider Diagnosis [facility] [address] [place] [id number] 12/12/2024 CARLOS SNOOK Tinea unguium B35.1 ; Other hereditary and idiopathic neuropathies G60.8 ; Pain in right toe(s) M79.674 ; Pain in left toe(s) M79.675 and Acquired keratosis [keratoderma] palmaris et plantaris L85.1 [facility] [address] [place] [phone] 02/15/2024 CARLOS SNOOK Tinea unguium B35.1 ; Pain in right toe(s) M79.674 ; Pain in left toe(s) M79.675 and Atherosclerosis of [place] arteries of extremities with intermittent claudication, bilateral legs I70.213 [facility] [address] [place] [id number] 06/13/2024 CARLOS SNOOK Other hereditary and idiopathic neuropathies G60.8 ; Tinea unguium B35.1 ; Pain in right toe(s) M79.674 and Pain in left toe(s) M79.675 [facility] [address] [place] [id number] 09/12/2024 CARLOS SNOOK Other hereditary and idiopathic [...] gel at night time for pain 12/12/2024 Tinea unguium (ICD-10 - B35.1) FUNGAL [...] Pain in right toe(s) (ICD-10 - M79.674) 09/12/2024 Pain in right toe(s) (ICD-10 - M79.674) 06/13/2024 Pain in right toe(s) (ICD-10 - M79.674) 02/15/2024 Pain in left toe(s) (ICD-10 - M79.675) 02/15/2024 Atherosclerosis of [place] arteries of extremities with intermittent claudication, bilateral legs (ICD-10 - I70.213) 06/13/2024 Pain in left toe(s) (ICD-10 - M79.675) 09/12/2024 Pain in left toe(s) (ICD-10 - M79.675) 12/12/2024 Pain in left toe(s) (ICD-10 - M79.675) 12/12/2024 Acquired keratosis [keratoderma] palmaris et plantaris (ICD-10 - L85.1) A total of 2 corns or calluses, as described in the note above, were cut and pared utilizing a #15 blade 09/12/2024 Acquired keratosis [keratoderma] palmaris et plantaris (ICD-10 - L85.1) A total of 2 corns or calluses, as described in the note above, were cut and pared utilizing a #15 blade Plan Of Treatment Next Appt Details Provider Name:CARLOS HAWKINS, 11:10:00 AM, [address], [place], [place], [phone], Insurance Providers Payer Name Payer Address Payer Phone Subscriber Number Group Number Insured Name Patient Relationship to Insured Coverage Start Date Coverage End Date [id number] [place] [address] [phone] [id number] Paras Coreas Self - patient is the insured Medical (General) History Medical History History ICD Code acid reflux Leg/Feet cramps Arthritis Back Trouble Psychiatric Disorder rheumatoid arthritis hypertension neuropathy Surgical History Surgery Date(Month/Year) back surgery knee surgery
--- OUTSIDE RECORDS SUMMARY | 2025-02-03 13:52 | XMS_ITS | Clinical Summary ---
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 Name Role Phone Reji Villafana DO Primary Care Provider [phone] Allergies Active Allergy Reactions Criticality Noted Date Comments No Known Allergies Other (See comments) Low Reaction: Medications pantoprazole DR (PROTONIX) 40 mg EC tabletIndications :Treatment of Non-Bleeding Gastric Disorder,acid reflux Take 1 tablet (40 mg total) by mouth every morning 0 018 Active testosterone cypionate (DEPO-TESTOTERONE ) 200 mg/mL injectionIndicati ons:Androgen Deficiency Inject 1.5 mL (300 mg total) into the muscle as instructed every 14 (fourteen) days 019 Active multivit-mins no.63/iron/folic (M-VIT ORAL)Indications: preventive, OTC Take 1 tablet by mouth every morning Active hydrOXYzine (ATARAX) 25 mg tablet Take 1-2 tablets (25-50 mg total) by mouth every 8 (eight) hours as needed for anxiety 90 tablet 11 023 Active losartan (COZAAR) 100 mg tablet Take 1 tablet (100 mg total) by mouth daily Active tamsulosin (FLOMAX) 0.4 mg extended release capsule Take 1 capsule (0.4 mg total) by mouth daily Active pregabalin (LYRICA) 100 mg capsule 024 Active sildenafiL, pulm.hypertension , (REVATIO) 20 mg tablet TAKE 1 TO 5 TABLETS BY MOUTH ONE HOUR BEFORE SEXUAL ACTIVITY Active hydroxychloroquin e (PLAQUENIL) 200 mg tablet Take 2 tablets (400 mg total) by mouth daily 60 tablet 5 Active Contrave 8-90 mg tablet extended release Take 1 tablet by mouth every morning Active lamoTRIgine (LaMICtal) 100 mg tablet Take 1 tablet by mouth once daily 30 tablet Active Additional Information Patient not taking.Reported on 12/05/2024 lamoTRIgine (LaMICtal) 150 mg tabletIndications :Bipolar Disorder Take 1 tablet (150 mg total) by mouth daily 30 tablet 2 025 Active Additional Information Patient not taking.Reported on 12/05/2024 lamoTRIgine (LaMICtal) 25 mg tabletIndications :Bipolar Disorder Take 1 tablet (25 mg total) by mouth daily for 14 days 14 tablet 025 Active Additional Information Patient not taking.Reported on 12/05/2024 zolpidem (AMBIEN) 10 mg tablet TAKE 1 TABLET BY MOUTH NIGHTLY NEEDED FOR SLEEP 30 tablet 2 025 Active lamoTRIgine (LaMICtal) 25 mg tabletIndications :Bipolar Disorder Take 1 tablet (25 mg total) by mouth daily for 14 days 14 tablet Active Additional Information Patient not taking.Reported on 12/05/2024 busPIRone (BUSPAR) 7.5 mg tablet Active metoprolol XL (TOPROL-XL) 25 mg extended release tablet Active hydrOXYzine (ATARAX) 25 mg tablet TAKE 1 TABLET BY MOUTH 4 TIMES DAILY NEEDED FOR ANXIETY 30 tablet 2 025 Active clonazePAM (KlonoPIN) 0.5 mg tablet TAKE 1 TABLET BY MOUTH THREE TIMES DAILY NEEDED FOR ANXIETY 60 tablet [address] (CYMBALTA) 60 mg capsule Take 1 capsule by mouth once daily 30 capsule 025 Active lamoTRIgine (LaMICtal) 200 mg tablet Take 1 tablet by mouth once daily 30 tablet 025 Active meloxicam (MOBIC) 7.5 mg tabletIndications :Seronegative inflammatory arthritis,Osteoar thritis of multiple joints, unspecified osteoarthritis type Take 1 tablet by mouth once daily 90 tablet 1 025 Active meloxicam (MOBIC) 7.5 mg tablet Take 1 tablet (7.5 mg total) by mouth daily 30 tablet 11 024 2024 Discontinued lamoTRIgine (LaMICtal) 200 mg tabletIndications :Bipolar Disorder Take 1 tablet (200 mg total) by mouth daily 30 tablet 2 [address] (CYMBALTA) 60 mg capsule Take 1 capsule by mouth once daily 30 capsule 025 2024 Discontinued Active Problems Problem Noted Date Diagnosed Date Other insomnia 04/29/2023 Assessment & Plan (04/29/2023 11:05 AM GRIDDLE COOK): Not treated for LAUREEN. Has diagnosis on [...] 01/28/2023 Assessment & Plan (04/29/2023 11:02 AM GRIDDLE COOK): Acute on chronic, persistent. Hydroxyzine effective in the past - he would like to re-start. Start Hydroxyzine as discussed. Also starting Cymbalta 30 mg daily. Monitor in 6 weeks. Call the office if symptoms worsen. Supportive counseling provided to display empathy and validation. Bipolar 1 disorder 12/29/2022 Assessment & Plan (04/29/2023 12:33 PM GRIDDLE COOK): Chronic, stable. No medication changes at this time. Continue to monitor at interval. Generalized anxiety disorder 12/29/2022 Assessment & Plan (04/29/2023 10:53 AM GRIDDLE COOK): Acute on chronic, persistent. 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 Continue to monitor at interval. Hypertension 10/07/2019 Hyperlipidemia 10/07/2019 LAUREEN (obstructive sleep apnea) 10/07/2019 Anxiety and depression 10/07/2019 GERD (gastroesophageal reflux disease) 0 Spinal stenosis of lumbar re gion with neurogenic claudication 06/20/2019 Overview (06/20/2019): Added automatically from request for surgery [id number] Spinal stenosis of lumbar region 03/30/2018 Encounters Date Type Department Care Team Description 01/16/2025 4:00 PM CDT Office Visit [facility] [id number] [phone] Sean Mancia MD Panic disorder (Primary Dx); Generalized anxiety disorder; Bipolar 1 disorder (HCC) 12/05/2024 11:30 AM CDT Lab [facility] Medicine Infectious Diseases [address] [place] [phone] 12/05/2024 11:18 AM CDT - 12/05/2024 11:59 PM CDT Hospital Encounter [facility] [address] [place] [address] Seronegative inflammatory arthritis; Positive MURRAY (antinuclear antibody) Discharge Disposition: Discharge to home or self care 12/05/2024 11:00 AM CDT Office Visit [facility] Medicine Rheumatology [address] [place] [phone] Naomy Khan MD High risk medication use (Primary Dx); Seronegative inflammatory arthritis; Positive MURRAY (antinuclear antibody) from Last 3 Months Surgical History Surgery [...] Packs/Day Years Used Date Smoking Tobacco: Never Passive Smoke Exposure: Never Smokeless Tobacco: Never Tobacco Cessation:Counseling Given: Not Answered Alcohol Use Standard Drinks/Week Comments Not Currently 0 (1 standard drink = 0.6 oz pur e alcohol) [facility] Utilities Answer Date Recorded In the past 12 months has th e electric, gas, oil, or water [employer] threatened to shut off services in your home? No 12/05/2024 Social Connection and Isolation Panel Answer Date Recorded In a typical week, how many times do you talk on the phone with family, friends, or neighbors? Once a week 12/05/2024 How often do you get togethe r with friends or relatives? Never 12/05/2024 How often do you attend chur ch or mormon services? More than 4 times per year 12/05/2024 Do you belong to any clubs o r organizations such as gnosticism groups, unions, fraternal or athletic groups, or school groups? No 12/05/2024 How often do you attend meet ings of the clubs or organizations you belong to? Not asked 12/05/2024 Are you , , di vorced, , never , or living with a partner? 12/05/2024 AUDIT-C Answer Date Recorded Q1: How often [...] care, and heating? Not hard at all 12/05/2024 PHQ-2 Answer Date Recorded Patient Health Questionnaire-2 Score 6 12/05/2024 [facility] [place] of Occupat ional Health - Occupational Stress Questionnaire Answer Date Recorded Do you feel stress - tense, restless, nervous, or anxious, or unable to sleep at night because your mind is troubled all the time - these days? Very much 12/05/2024 Exercise Vital Sign Answer Date Recorde d On average, how many days pe r week do you engage in moderate to strenuous exercise (like a brisk walk)? 0 days 12/05/2024 On average, how many minutes do you engage in exercise at this level? 0 min 12/05/2024 Hunger Vital Sign Answer Date Recorded Within the past 12 months, y ou worried that your food would run out before you got the money to buy more. Never true 12/06/19 25 Within the past 12 months, t he food you bought just didn't last and you didn't have money to get more. Never true 12/05/2024 PRAPARE - Transportation Answer Date Re corded In the past 12 months, has l ack of transportation kept you from medical appointments or from getting medications? No 08/2024 In the past 12 months, has l ack of transportation kept you from meetings, work, or from getting things needed for daily living? No 12/05/2024 Housing Stability Vital Sign Answer Jordon e [...] place to sleep or slept in a skilled nursing (including now)? No 08/17/2023 Housing Stability Vital Sign Answer Jordon e Recorded In the last 12 months, was t here a time when you were not able to pay the mortgage or rent on time? No 12/05/2024 Number of Times Moved in the Last Year Not on fi le 12/05/2024 At any time in the past [address] [facility], were you homeless or living in a skilled nursing (including now)? No 12/05/2024 Personal Safety Answer Date Recorded Have you ever been in or are you currently in a harmful physical or emotional relationship or is someone making you feel afraid or unsafe? Denies 11/18/2022 Sex and Gender Information Value Date Recorded Sex Assigned at Not on file Legal Sex Male 3:35 AM GRIDDLE COOK Gender Identity Male 09/16/2022 11:22 AM CDT Sexual Orientation Straight 09/16/2022 11 :21 AM CDT Obstetrics History Last Filed Vital Signs Vital Sign Reading Time Taken Comments Blood Pressure 135/79 12/05/2024 10:44 AM CDT Pulse 85 12/05/2024 10:44 AM CDT Temperature 36.7 C (98.1 F) 12/05/2024 10:44 AM CDT Respiratory Rate 14 11/18/2022 10:2 0 AM CDT Oxygen Saturation 96% 12/05/2024 10: 44 AM CDT Inhaled Oxygen Concentration - - Weight 103.1 kg (227 lb 3.2 oz) 025 10:44 AM CDT Height 175.3 cm (5' 9) 12/05/2024 10:4 4 AM CDT Body Mass Index 33.55 12/05/2024 10:44 AM CDT Plan of Treatment Health Maintenance Due Date Last Done Comments Hepatitis C Screening 1960 Prostate Cancer Screening-PSA 1958 Hepatitis B Screening 1976 Pneumococcal vaccine 65+ (1 of 2 - PCV) 1977 Colon Cancer Screening-Colonoscopy 05/26/2017 05/26/2007 Well Visit 65+ 2023 Zoster Vaccine (2 of 2) 05/30/2023 04/04/2023 Fall Risk Assessment 11/19/2023 11/18/2022 Covid-19 Vaccine (4 - 2024-2 6 season) 2025 10/15/2021, 11/22/2020, 11/01/2020 Influenza Vaccine (#1) 2025 , 03/25/2022, 03/27/2021, Additional history exists Depression Screening 12/05/2025 12/05/2024, 10/05/2023, 08/17/2023 DTaP/Tdap/Td Vaccine (2 - Td or Tdap) 10/16/2031 10/15/2021 Colon Cancer Screening-CT Colonography Discontinued 05/26/2007 Colon Cancer Screening-DNA Stool Discontinued 05/26/19 08 Colon Cancer Screening-FIT Discontinued 05/26/2007 Colon Cancer Screening-Sigmoidoscopy Discontinued 05/26/2007 Medical Devices Implanted Type Area Phy Therapist Device Identifier Shelf Expiration Date Model / Serial / Lot Medtronic Sofamor Danek [id number] Infuse 18mm 26mm Absorbable Sponge Sterile Water Syringe Needle - [id number] Implanted:Qty: 1 on 10/10/2019 by Emanuel Baum MD at [facility] N/A: Spine Lumbar Medtronic Inc 01/02/2020 [id number] / / [id number] Medtronic Inc [id number] 8.5mm 80mm Multiaxial Cannulated Thoracolumbar Screw Bone - [id number] Implanted:Qty: 2 on 10/10/2019 by Emanuel Baum MD at [facility] N/A: Spine Lumbar Medtronic Inc [id number] / / Medtronic Inc [id number] Cd Horizon 6mm 500mm Line Straight Ronnie Spinal Titanium Nonsterile - [id number] Implanted:Qty: 1 on 10/10/2019 by Emanuel Baum MD at [facility] N/A: Spine Lumbar Medtronic Inc [id number] / / Medtronic Sofamor Danek [id number] Infuse 18mm 26mm Absorbable Sponge Sterile Water Syringe Needle - [id number] Implanted:Qty: 1 on 10/10/2019 by Emanuel Baum MD at [facility] N/A: Spine Lumbar Medtronic Inc 01/02/2020 [id number] / / [id number] Medtronic Sofamor Danek [id number] Mastergraft Block Void Filler Substitute 20ml Bone Graft Matrix - [id number] Implanted:Qty: 1 on 10/10/2019 by Emanuel Baum MD at [facility] N/A: Spine Lumbar Medtronic Inc 05/03/2020 [id number] / / [id number] Allosource [id number] Crushed Chip Frozen Graft 30ml Bone Cancellous - [id number] Implanted:Qty: 1 on 10/10/2019 by Emanuel Baum MD at [facility] N/A: Spine Lumbar Allosource 01/01/2024 [id number] / / [id number] Allosource [id number] Crushed Chip Frozen Graft 30ml Bone Cancellous - [id number] Implanted:Qty: 1 on 10/10/2019 by Emanuel Baum MD at [facility] N/A: Spine Lumbar Allosource 01/01/2024 [id number] / / [id number] Allosource [id number] Crushed Chip Frozen Graft 30ml Bone Cancellous - [id number] Implanted:Qty: 1 on 10/10/2019 by Emanuel Baum MD at [facility] N/A: Spine Lumbar Allosource 12/19/2023 [id number] / / [id number] Medtronic Sofamor Danek [id number] Solera Cd Horizon 6.5mm 50mm Multiaxial Spine Screw Bone Cocr - [id number] Implanted:Qty: 4 on 10/10/2019 by Emanuel Baum MD at [facility] N/A: Spine Lumbar Medtronic Inc [id number] / / Medtronic Sofamor Danek [id number] Solera Cd Horizon 6.5mm 55mm Multiaxial Spine Screw Bone Cocr - [id number] Implanted:Qty: 4 on 10/10/2019 by Emanuel Baum MD at [facility] N/A: Spine Lumbar Medtronic Inc [id number] / / Medtronic Sofamor Danek [id number] Cd Horizon Break Off Spinal Screw Set Titanium Nonsterile 5.5 Mm - [id number] Implanted:Qty: 10 on 10/10/2019 by Emanuel Baum MD at [facility] N/A: Spine Lumbar Medtronic Inc [id number] / / Procedures Procedure Name Priority Date/Time Associated Diagnosis Comments EGFR Routine 12/05/2024 11:18 AM CDT Seronegative inflammatory arthritis URINALYSIS, MICROSCOPIC ONLY Routine 12/05/2024 11:18 AM CDT Positive MURRAY (antinuclear antibody) DIFFERENTIAL AUTO Routine 12/05/2024 11: 18 AM CDT Seronegative inflammatory arthritis ANTI-DOUBLE STRANDED DNA ANTIBODIES Routine 12/05/2024 11:18 AM CDT Positive MURRAY (antinuclear antibody) PROTEIN / CREATININE RATIO, URINE, RANDOM Routine 12/05/2024 11:18 AM CDT Positive MURRAY (antinuclear antibody) C4 COMPLEMENT Routine 12/05/2024 11:18 AM CDT Positive MURRAY (antinuclear antibody) C3 COMPLEMENT Routine 12/05/2024 11:18 AM CDT Positive MURRAY (antinuclear antibody) ERYTHROCYTE SEDIMENTATION RATE Routine 12/05/2024 11:18 AM CDT Seronegative inflammatory arthritis COMPREHENSIVE METABOLIC PANEL Routine 12/05/2024 11:18 AM CDT Seronegative inflammatory arthritis CBC WITH AUTO DIFFERENTIAL Routine 12/05/2024 11:18 AM CDT Seronegative inflammatory arthritis CRP (ACUTE PHASE) Routine 12/05/2024 11: 18 AM CDT Seronegative inflammatory arthritis URINALYSIS AND REFLEX TO MICROSCOPIC AND CULTURE Routine 12/05/2024 11:18 AM CDT Positive MURRAY (antinuclear antibody) COLONOSCOPY 05/26/2007 12:00 AM GRIDDLE COOK from Last 3 Months or Most Recently Relevant to Health Maintenance Results * Anti-double stranded DNA abs (12/05/2024 11:18 AM CDT) dsDNA Ab 1.0 <=4.0 IUnits/mL Comment: Interpretive Data Negative: < or = 4 IUnits/mL Indeterminate: 5 - 9 IUnits/mL Positive: > or = 10 IUnits/mL Current interpretive data was last revised on 2016. Testing performed by: [facility], [address], [place]., [address] Blood 12/05/2024 11:1 8 AM CDT 12/06/2024 10:41 AM CDT Naomy Moralez MD LAB BL OOD ORDERABLES Final Result [facility] [address] Department [place] [address] * eGFR (12/05/2024 11:18 AM CDT) eGFR >90 >=60 mL/min/1. 73 m2 Comment: Interpretive Data Reference Interval Normal >/= 90 mL/min/1.73m2 Mildly decreased* 60 - 89 mL/min/1.73m2 Mildly to moderately decreased 45 - 59 mL/min/1.73m2 Moderately to severely decreased 30 - 44 mL/min/1.73m2 Severely decreased 15 - 29 mL/min/1.73m2 Kidney Failure < 15 mL/min/1.73m2 *Relative to young adult level Estimated glomerular filtration rate is determined by the 2020 CKD-EPI equation recommended by the National Kidney Foundation (A Unifying Approach to GFR Estimation: Recommendations of the NKF-ASK Task Force on Reassessing the Inclusion of Race in Diagnosing Kidney Disease, JASN 2020). The CKD-EPI equation should not be used for patients with unstable renal function and has not been validated in children and those over 70. Current interpretive data was last reviewed 2021. Blood 12/05/2024 11:1 8 AM CDT 12/05/2024 9:39 PM CDT Naomy Moralez MD LAB BL OOD ORDERABLES Final Result [facility] [address] Department [place] [address] * Differential, auto (12/05/2024 11:18 AM CDT) Neutrophil abs 2.97 1.50 - 6.50 K/cumm Imm gran abs 0.02 0.00 - 0.10 K/cumm [facility] Lymphocyte abs 2.35 0.80 - 3.30 K/cumm [facility] Monocyte abs 0.67 0.20 - 0.80 K/cumm [facility] Eosinophil abs 0.11 0.00 - 0.50 K/cumm [facility] Basophil abs 0.08 0.00 - 0.10 K/cumm [facility]I Neutrophil pct 47.9 % [facility] Comment: Interpretive Data Percent cell count reference ranges are not reported, since discordance with absolute values may lead to misinterpretation of CBC data. Current Interpretive Data was last revised on 2017. Imm gran pct 0.3 % [facility] Comment: Interpretive Data Percent cell count reference ranges are not reported, since discordance with absolute values may lead to misinterpretation of CBC data. Current Interpretive Data was last revised on 2017. Lymphocyte pct 37.9 % [facility] Comment: Interpretive Data Percent cell count reference ranges are not reported, since discordance with absolute values may lead to misinterpretation of CBC data. Current Interpretive Data was last revised on 2017. Monocyte pct 10.8 % [facility] Comment: Interpretive Data Percent cell count reference ranges are not reported, since discordance with absolute values may lead to misinterpretation of CBC data. Current Interpretive Data was last revised on 2017. Eosinophil pct 1.8 % [facility] Comment: Interpretive Data Percent cell count reference ranges are not reported, since discordance with absolute values may lead to misinterpretation of CBC data. Current Interpretive Data was last revised on 2017. Basophil pct 1.3 % [facility] Comment: Interpretive Data Percent cell count reference ranges are not reported, since discordance with absolute values may lead to misinterpretation of CBC data. Current Interpretive Data was last revised on 2017. Blood 12/05/2024 11:1 8 AM CDT 12/05/2024 9:36 PM CDT Naomy Moralez MD LAB BL OOD ORDERABLES Final Result [facility] [address] [address] Department [place] [address] * C4 complement (12/05/2024 11:18 AM CDT) Complement C4 17 10 - 40 mg/dL Blood 12/05/2024 11:1 8 AM CDT 12/05/2024 9:36 PM CDT Naomy Moralez MD LAB BL OOD ORDERABLES Final Result [facility] [address] Department [place] [address] * (ABNORMAL) Urinalysis reflex to microscopic and culture Urine (12/05/2024 11:18 AM CDT) Color, ur Yellow Yellow Clarity, ur Clear Clear [facility] Specific gravity, ur 1.026 1.003 - 1.030 [facility] pH, urine 7.0 [facility] Comment: Interpretive Data U rine pH is affected by diet, medications, systemic acid-base disturbances, and renal tubular function. pH may affect urinary stone formation. For example, urine pH below 6.0 may help reduce the tendency for calcium phosphate stones and pH greater than 6.0 may reduce the tendency for uric acid stone formation. Source: [facility] Current Interpretive Data was last revised on 2017 Protein, ur ql Trace Negative [facility] Glucose, ur ql Negative Negative [facility] Ketones, ur Negative Negative [facility] Bilirubin, ur Negative Negative [facility] Blood, ur Negative Negative [facility] Urobilinogen, ur 4.0(A) <2.0 mg/dL [facility] Nitrite, ur Negative Negative [facility] Leukocyte esterase, ur 1+(A) Negative [facility] UA reflex comment Reflex to microscopic UA will be performed. [facility] Urine 12/05/2024 11:1 8 AM CDT 12/05/2024 9:36 PM CDT Naomy Moralez MD LAB MICROBIOLOGY - GENERAL ORDERABLES Final Result [facility] [address] Department [place] [address] * (ABNORMAL) CBC with auto differential (12/05/2024 11:18 AM CDT) WBC 6.20 3.80 - 9.90 K/cumm Hgb 14.9 13.0 - 17.5 g/dL [facility] Hct 46.6 38.9 - 50.3 % [facility] Plt 227 150 - 400 K/cumm [facility] MPV 10.0 9.1 - 12.3 fL [facility] RBC 5.16 4.30 - 5.80 M/cumm [facility] MCV 90.3 81.3 - 96.4 fL [facility] MCH 28.9 27.1 - 33.3 pg [facility] MCHC 32.0(L) 32.3 - 35.7 g/dL [facility] RDW CV 13.1 11.1 - 14.9 % [facility] RDW SD 43.2 35.7 - 48.1 fL [facility] NRBC abs 0.00 0.00 - 0.01 K/cumm [facility] Blood 12/05/2024 11:1 8 AM CDT 12/05/2024 9:36 PM CDT Naomy Moralez MD LAB BL OOD ORDERABLES Final Result Performing Organization Address City/[facility] Co de Phone Number [facility] [phone] Department [place] [address] * Protein / creatinine ratio, urine, random (12/05/2024 11:18 AM CDT) Protein, ur, quant 16.1 mg/dL Comment: Interpretive Data No reference range established. Current interpretive data was last revised 2018. Creatinine Ur 237.0 mg/dL [facility] Comment: Interpretive Data No reference range established. Current interpretive data was last revised 2018. Protein/creatinin e ratio 67.9 0.0 - 180.0 mg/g CR [facility] Urine 12/05/2024 11:1 8 AM CDT 12/05/2024 9:36 PM CDT Naomy Moralez MD LAB UR INE ORDERABLES Final Result Performing Organization Address City/[facility] Co de Phone Number [facility] [phone] [place] [address] * (ABNORMAL) Urinalysis, microscopic only (12/05/2024 11:18 AM CDT) WBC, ur 0-5 0 - 5 /HPF RBC, ur 0-2 0 - 2 /HPF [facility] Epithelial cells, squamous, ur 1-5 0 - 5 /HPF [facility] Mucous, ur Present(A) [facility] Culture Reflex Comment Reflex conditions for urine culture (WBC >10) not met. [facility] Urine 12/05/2024 11:1 8 AM CDT 12/05/2024 9:36 PM CDT Naomy Moralez MD LAB UR INE ORDERABLES Final Result Performing Organization Address [facility] Co de Phone Number [facility] [phone] [address] [facility] [place] [address] * Erythrocyte sedimentation rate (12/05/2024 11:18 AM CDT) Erythrocyte sedimentation rate 8 1 - 20 mm/hr Blood 12/05/2024 11:1 8 AM CDT 12/05/2024 9:36 PM CDT Naomy Moralez MD LAB BL OOD ORDERABLES Final Result Performing Organization Address City/[facility] Co de Phone Number [facility] [phone] [facility] [place] [address] * C3 complement (12/05/2024 11:18 AM CDT) Complement C3 110 90 - 180 mg/dL Blood 12/05/2024 11:1 8 AM CDT 12/05/2024 9:36 PM CDT Naomy Moralez MD LAB BL OOD ORDERABLES Final Result Performing Organization Address City/[facility]/ZIP Co de Phone Number [facility] [phone] Department [place] [address] * CRP (acute phase) (12/05/2024 11:18 AM CDT) CRP 6.7 <=10.0 mg/L Blood 12/05/2024 11:1 8 AM CDT 12/05/2024 9:36 PM CDT Naomy Moralez MD LAB BL OOD ORDERABLES Final Result Performing Organization Address [facility] Co de Phone Number [facility] [phone] [address] Department [place] [address] * (ABNORMAL) Comprehensive metabolic panel (12/05/2024 11:18 AM CDT) Sodium 139 135 - 145 mmol/L Potassium, pl 3.9 3.3 - 4.9 mmol/L [facility] Chloride 103 97 - 110 mmol/L [facility] CO2 26 22 - 32 mmol/L [facility] Anion gap 10 2 - 15 mmol/L [facility] BUN 9 6 - 25 mg/dL [facility] Creatinine 0.74(L) 0.80 - 1.30 mg/dL [facility] Glucose 84 70 - 199 mg/dL [facility] Comment: Interpretive Data Fasting glucose >/= 126 mg/dl is diagnostic for diabetes. Fasting is defined as no caloric intake for at least 8 hours. Fasting glucose between 100 mg/dl to 125 mg/dl is diagnostic of prediabetes. In a patient with classic symptoms of hyperglycemia or hyperglycemic crisis, a random glucose >/= 200 mg/dl is diagnostic for diabetes. In the absence of unequivocal hyperglycemia, results should be confirmed by repeat testing. The classification and Diagnosis of Diabetes Diabetes Care 2021; 46: S19-S40. Current interpretive data was last revised 2022. Calcium 8.7 8.5 - 10.3 mg/dL C[facility] Bilirubin, total 0.6 0.1 - 1.2 mg/dL [facility] CH Protein, pl 6.7 6.5 - 8.5 g/dL [facility] Albumin 4.0 3.5 - 5.0 g/dL [facility] Alk phos 93 40 - 130 Units/L [facility] ALT 19 7 - 55 Units/L [facility] AST 27 10 - 50 Units/L [facility] Blood 12/05/2024 11:1 8 AM CDT 12/05/2024 9:36 PM CDT Naomy Moralez MD LAB BL OOD ORDERABLES Final Result [facility] [id number] [address]yes Department [place] [address] * COLONOSCOPY (05/26/2007 12:00 AM GR[facility]) Anatomical Region Laterality Modality Other Narrative 05/26/2007 12:00 AM [facility] Ordered by an unspecified provider. Procedure Note Provider, MD Babar - 05/26/2007 12:00 AM CST PROCEDURE REPORT Patient: MATI TSAI III Account: [id number] Room No: : 1960 Patient Type: [facility] Attend.: Davy Gonzalez M.D. Admit Date:05/26/2007 Dict.: [...] [place]. 4. Anusol. 5. Repeat colonoscopy per [place] [employer] criteria recommendations. 6. Follow up [...] Advance Directives For more information, please contact: [phone] * Full Code (Latest Code Status on File) Date Activated Date Inactivated Comments 10/10/2019 7:47 AM 10/13/2019 5:12 PM Care Teams Metal Hanging Helper Relationship Specialty Start Date End Date Reji Villafana DO PCP - General Internal Medicine 10/03/24
[2025-02-03 13:53] VITALS: BP 147/96; PULSE 100; RESP 17; TEMP 36.3; O2SAT 97
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
--- OUTSIDE RECORDS SUMMARY | 2025-02-03 15:47 | XMS_ITS | Clinical Summary ---
Author Organization [facility] [employer] Address [address] [place] [address] Care Team Providers Care Scutcher Tender Name Role Phone Unavailable Primary Care Provider Unavailabl e Source Comments [facility] [employer],non-owned Affiliates and Associated Physician Practices is amultiple site organization consisting of ambulatory clinics and hospital sitesin [place], [place], [place] and [place]. This disclosure is being madepursuant to the Care Everywhere program and may not contain all information available regarding this patient. Last updated 18.[facility] [employer] Social History Tobacco Use Types Packs/Day Years Used Date Smoking Tobacco: Never Assessed Sex and Gender Information Value Date Recorded Sex Assigned at Not on file Legal Sex Male 1:06 PM [employer] Gender Identity Not on file Sexual Orientation [...] to complete this topic Insurance [facility] [place] [id number] [place] [address] * Guarantor: E-SCREEN,SOIL Account Type Relation to Patient Date of Phone Billing Address Company Employer [employer] [address]
--- OUTSIDE RECORDS SUMMARY | 2025-02-03 15:47 | XMS_ITS | Clinical Summary ---
Author Organization [facility] Address [facility] [place] [address] Care Team Providers Care Casting Room Helper Name Role Phone Reji Villafana DO Primary Care Provider Allergies Active Allergy Reactions Criticality Noted Date [...] 04/29/2023 Assessment & Plan (04/29/2023 11:05 AM SOFTWARE CONFIGURATION ENGINEER): Not treated for LAUREEN. Has diagnosis on [...] 01/28/2023 Assessment & Plan (04/29/2023 11:02 AM SOFTWARE CONFIGURATION ENGINEER): Acute on chronic, persistent. Hydroxyzine effective in the past - he would like to re-start. Start Hydroxyzine as discussed. Also starting Cymbalta 30 mg daily. Monitor in 6 weeks. Call the office if symptoms worsen. Supportive counseling provided to display empathy and validation. Bipolar 1 disorder 12/29/2022 Assessment & Plan (04/29/2023 12:33 PM SOFTWARE CONFIGURATION ENGINEER): Chronic, stable. No medication changes at this time. Continue to monitor at interval. Generalized anxiety disorder 12/29/2022 Assessment & Plan (04/29/2023 10:53 AM SOFTWARE CONFIGURATION ENGINEER): Acute on chronic, persistent. 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 Continue to monitor at interval. Hypertension 10/07/2019 Hyperlipidemia 10/07/2019 LAUREEN (obstructive sleep apnea) 10/07/2019 Anxiety and depression 10/07/2019 GERD (gastroesophageal reflux disease) 0 Spinal stenosis of lumbar re gion with neurogenic claudication 06/20/2019 Overview (06/20/2019): Added automatically from request for surgery [id number] Spinal stenosis of lumbar region 03/30/2018 Encounters Date Type Department Care Team Description 01/16/2025 4:00 PM CDT Office Visit [facility] [address] [phone] Sean Mancia MD Panic disorder (Primary Dx); Generalized anxiety disorder; Bipolar 1 disorder (HCC) 12/05/2024 11:[address] [facility] Medicine Infectious Diseases [address] [place] [phone] 12/05/2024 11:18 AM CDT - 12/05/2024 11:59 PM CDT Hospital Encounter [facility] [address] [place] [address] Seronegative inflammatory arthritis; Positive MURRAY (antinuclear antibody) Discharge Disposition: Discharge to home or self care 12/05/2024 11:00 AM CDT Office Visit [facility] Medicine Rheumatology [address] [place] [phone] Naomy Khan MD High risk medication use [...] drink = 0.6 oz pur e alcohol) [facility] Utilities Answer Date Recorded In the past 12 months has th e electric, gas, oil, or water Managed by Q threatened to shut off services in your home? No 12/05/2024 Social Connection and Isolation Panel Answer Date Recorded In a typical week, how many times do you talk on the phone with family, friends, or neighbors? Once a week 12/05/2024 How often do you get togethe r with friends or relatives? Never 12/05/2024 How often do you attend chur ch or taoist services? More than 4 times per year 12/05/2024 Do you belong to any clubs o r organizations such as presybeterian groups, unions, fraternal or athletic groups, or [...] Recorded Patient Health Questionnaire-2 Score 6 12/05/2024 [facility] ional [facility] - Occupational Stress [...] place to sleep or slept in a detention (including now)? No 08/17/2023 Housing Stability Vital Sign Answer Jordon e Recorded In the last 12 months, was t here a time when you were not able to pay the mortgage or rent on time? No 12/05/2024 Number of Times Moved in the Last Year Not on fi le 12/05/2024 At any time in the past 12 m [facility], were you homeless or living in a detention (including now)? No 12/05/2024 Personal Safety Answer Date Recorded Have you ever been in or are you currently in a harmful physical or emotional relationship or is someone making you feel afraid or unsafe? Denies 11/18/2022 Sex and Gender Information Value Date Recorded Sex Assigned at Not on file Legal Sex Male 3:35 AM SOFTWARE CONFIGURATION ENGINEER Gender Identity Male 09/16/2022 11:22 AM CDT [...] Discontinued 05/26/2007 Medical Devices Implanted Type Area Bundle Cutter Device Identifier Shelf Expiration Date Model / Serial / Lot Medtronic Sofamor Danek [id number] Infuse 18mm 26mm Absorbable Sponge Sterile Water Syringe Needle - [id number] Implanted:Qty: 1 on 10/10/2019 by Emanuel Baum MD at [facility] N/A: Spine Lumbar Medtronic Inc 01/02/2020 [id number] / / [id number] Medtronic Inc [id number] 8.5mm 80mm Multiaxial Cannulated Thoracolumbar Screw Bone - [id number] Implanted:Qty: 2 on 10/10/2019 by Emanuel Baum MD at [facility] N/A: Spine Lumbar Medtronic Inc [id number] / / Medtronic Inc [id number] Cd Horizon 6mm 500mm Line Straight Ronnie Spinal Titanium Nonsterile - [id number] Implanted:Qty: 1 on 10/10/2019 by Emanuel Baum MD at [facility] N/A: Spine Lumbar Medtronic Inc [id number] / / Medtronic Sofamor Danek [id number] Infuse 18mm 26mm Absorbable Sponge Sterile Water Syringe Needle - [id number] Implanted:Qty: 1 on 10/10/2019 by Emanuel Baum MD at [facility] N/A: Spine Lumbar Medtronic Inc 01/02/2020 [id number] / / [id number] Medtronic Sofamor Danek [id number] Mastergraft Block Void Filler Substitute 20ml Bone Graft Matrix - [id number] Implanted:Qty: 1 on 10/10/2019 by Emanuel Baum MD at [facility] N/A: Spine Lumbar Medtronic Inc 05/03/2020 [id number] / / [id number] Allosource [id number] Crushed Chip Frozen Graft 30ml Bone Cancellous - [id number] Implanted:Qty: 1 on 10/10/2019 by Emanuel Baum MD at [facility] N/A: Spine Lumbar Allosource 01/01/2024 [id number] / / [id number] Allosource [id number] Crushed Chip Frozen Graft 30ml Bone Cancellous - [id number] Implanted:Qty: 1 on 10/10/2019 by Emanuel Baum MD at [facility] N/A: Spine Lumbar Allosource 01/01/2024 [id number] / / [id number] Allosource [id number] Crushed Chip Frozen Graft 30ml Bone Cancellous - [id number] Implanted:Qty: 1 on 10/10/2019 by Emanuel Baum MD at [facility] N/A: Spine Lumbar Allosource 12/19/2023 [id number] / / [id number] Medtronic Sofamor Danek [id number] Solera Cd Horizon 6.5mm 50mm Multiaxial Spine Screw Bone Cocr - [id number] Implanted:Qty: 4 on 10/10/2019 by Emanuel Baum MD at [facility] N/A: Spine Lumbar Medtronic Inc [id number] / / Medtronic Sofamor Danek [id number] Solera Cd Horizon 6.5mm 55mm Multiaxial Spine Screw Bone Cocr - [id number] Implanted:Qty: 4 on 10/10/2019 by Emanuel Baum MD at [facility] N/A: Spine Lumbar Medtronic Inc [id number] / / Medtronic Sofamor Danek [id number] Cd Horizon Break Off Spinal Screw Set Titanium Nonsterile 5.5 Mm - [id number] Implanted:Qty: 10 on 10/10/2019 by Emanuel Baum MD at [facility] N/A: Spine Lumbar Medtronic Inc [id number] / / Procedures Procedure Name Priority Date/Time [...] MURRAY (antinuclear antibody) COLONOSCOPY 05/26/2007 12:00 AM SOFTWARE CONFIGURATION ENGINEER from Last 3 Months or Most Recently Relevant to Health Maintenance Results * Anti-double stranded DNA abs (12/05/2024 11:18 AM CDT) dsDNA Ab 1.0 <=4.0 IUnits/mL Comment: Interpretive Data Negative: < or = 4 IUnits/mL Indeterminate: 5 - 9 IUnits/mL Positive: > or = 10 IUnits/mL Current interpretive data was last revised on 2016. Testing performed by: [facility], [address] [facility], [place]., [address] Blood 12/05/2024 11:1 8 AM CDT 12/06/2024 10:41 AM CDT Naomy Moralez MD LAB BL OOD ORDERABLES Final Result [facility] [address] [place] [address] * eGFR (12/05/2024 11:18 AM CDT) eGFR [...] BL OOD ORDERABLES Final Result [facility] [address] [place] [address] * Differential, auto (12/05/2024 11:18 AM CDT) Neutrophil abs 2.97 1.50 - 6.50 K/cumm Imm gran abs 0.02 0.00 - 0.10 K/cumm [facility] Lymphocyte abs 2.35 0.80 - 3.30 K/cumm [facility] Monocyte abs 0.67 0.20 - 0.80 K/cumm CERNER Eosinophil abs 0.11 0.00 - 0.50 K/cumm [facility] Basophil abs 0.08 0.00 - 0.10 K/cumm SHI Neutrophil pct 47.9 % [facility] Comment: Interpretive Data Percent cell count reference ranges are not reported, since discordance with absolute values may lead to misinterpretation of CBC data. Current Interpretive Data was last revised on 2017. Imm gran pct 0.3 % [facility] Comment: Interpretive Data Percent cell count reference ranges are not reported, since discordance with absolute values may lead to misinterpretation of CBC data. Current Interpretive Data was last revised on 2017. Lymphocyte pct 37.9 % [facility] Comment: Interpretive Data Percent cell count reference ranges are not reported, since discordance with absolute values may lead to misinterpretation of CBC data. Current Interpretive Data was last revised on 2017. Monocyte pct 10.8 % [facility] Comment: Interpretive Data Percent cell count reference ranges are not reported, since discordance with absolute values may lead to misinterpretation of CBC data. Current Interpretive Data was last revised on 2017. Eosinophil pct 1.8 % [facility] Comment: Interpretive Data Percent cell count reference ranges are not reported, since discordance with absolute values may lead to misinterpretation of CBC data. Current Interpretive Data was last revised on 2017. Basophil pct 1.3 % [facility] Comment: Interpretive Data Percent cell count reference ranges are not reported, since discordance with absolute values may lead to misinterpretation of CBC data. Current Interpretive Data was last revised on 2017. Blood 12/05/2024 11:1 8 AM CDT 12/05/2024 9:36 PM CDT Naomy Moralez MD LAB BL OOD ORDERABLES Final Result [facility]I [address] [address] Department [place] [address] * C4 complement (12/05/2024 11:18 AM CDT) Complement C4 17 10 - 40 mg/dL Blood 12/05/2024 11:1 8 AM CDT 12/05/2024 9:36 PM CDT Naomy Moralez MD LAB BL OOD ORDERABLES Final Result [facility] [address] [address] [place] [address] * (ABNORMAL) Urinalysis reflex to microscopic and [...] tendency for uric acid stone formation. Source: [facility] Current Interpretive Data was last revised [...] - GENERAL ORDERABLES Final Result [facility] [address] [address] [place] [address] * (ABNORMAL) CBC with auto differential (12/05/2024 11:18 AM CDT) WBC 6.20 3.80 - 9.90 K/cumm Hgb 14.9 13.0 - 17.5 g/dL [facility] Hct 46.6 38.9 - 50.3 % [facility] Plt 227 150 - 400 K/cumm [facility] MPV 10.0 9.1 - 12.3 fL [facility] RBC 5.16 4.30 - 5.80 M/cumm [facility] MCV 90.3 81.3 - 96.4 fL [facility] MCH 28.9 27.1 - 33.3 pg [facility] MCHC 32.0(L) 32.3 - 35.7 g/dL [facility] RDW CV 13.1 11.1 - 14.9 % [facility] RDW SD 43.2 35.7 - 48.1 fL [facility] NRBC abs 0.00 0.00 - 0.01 K/cumm [facility] Blood 12/05/2024 11:1 8 AM CDT 12/05/2024 9:36 PM CDT Naomy Moralez MD LAB BL OOD ORDERABLES Final Result Performing Organization Address [facility] de Phone Number [facility] [address] [address] Department [place] [address] * Protein / creatinine ratio, urine, random (12/05/2024 11:18 AM CDT) Protein, ur, quant 16.1 mg/dL Comment: Interpretive Data No reference range established. Current interpretive data was last revised 2018. Creatinine Ur 237.0 mg/dL [facility] Comment: Interpretive Data No reference range established. Current interpretive data was last revised 2018. Protein/creatinin e ratio 67.9 0.0 - 180.0 mg/g CR [facility] Urine 12/05/2024 11:1 8 AM CDT 12/05/2024 9:36 PM CDT Naomy Moralez MD LAB UR INE ORDERABLES Final Result Performing Organization Address [facility] Phone Number [facility] [address] [place] [address] * (ABNORMAL) Urinalysis, microscopic only (12/05/2024 11:18 AM CDT) WBC, ur 0-5 0 - 5 /HPF RBC, ur 0-2 0 - 2 /HPF [facility] Epithelial cells, squamous, ur 1-5 0 - 5 /HPF [facility] Mucous, ur Present(A) [facility] Culture Reflex Comment Reflex conditions for urine culture (WBC >10) not met. [facility] Urine 12/05/2024 11:1 8 AM CDT 12/05/2024 9:36 PM CDT Naomy Moralez MD LAB UR INE ORDERABLES Final Result Performing Organization Address [facility] de Phone Number [facility] [address] [facility] [place] [address] * Erythrocyte sedimentation rate (12/05/2024 11:18 AM CDT) Erythrocyte sedimentation rate 8 1 - 20 mm/hr Blood 12/05/2024 11:1 8 AM CDT 12/05/2024 9:36 PM CDT Naomy Moralez MD LAB BL OOD ORDERABLES Final Result Performing Organization Address [facility] de Phone Number [facility] [phone] [facility] [place] [address] * C3 complement (12/05/2024 11:18 AM CDT) Complement C3 110 90 - 180 mg/dL Blood 12/05/2024 11:1 8 AM CDT 12/05/2024 9:36 PM CDT Naomy Moralez MD LAB BL OOD ORDERABLES Final Result Performing Organization Address [facility]/ZIP Co de Phone Number [facility] [address] [address] [place] [address] * CRP (acute phase) (12/05/2024 11:18 AM CDT) CRP 6.7 <=10.0 mg/L Blood 12/05/2024 11:1 8 AM CDT 12/05/2024 9:36 PM CDT Naomy Moralez MD LAB BL OOD ORDERABLES Final Result Performing Organization Address [facility] de Phone Number [facility] [address] [address] [place] [address] * (ABNORMAL) Comprehensive metabolic panel (12/05/2024 11:18 [...] BL OOD ORDERABLES Final Result [facility] [address] [address] [place] [address] * COLONOSCOPY (05/26/2007 12:00 AM SOFTWARE CONFIGURATION ENGINEER) Anatomical Region Laterality Modality Other Narrative 05/26/2007 12:00 AM SOFTWARE CONFIGURATION ENGINEER Ordered by an unspecified provider. Procedure Note Provider, MD Babar - 05/26/2007 12:00 AM CST PROCEDURE REPORT Patient: MATI TSAI III Account: [id number] Room No: : 1960 Patient Type: [facility] Attend.: Davy Gonzalez M.D. Admit Date:05/26/2007 [...] [place]. 4. Anusol. 5. Repeat colonoscopy per [place] [employer] criteria recommendations. 6. Follow up [...] Advance Directives For more information, please contact: [phone] * Full Code (Latest Code Status on File) Date Activated Date Inactivated Comments 10/10/2019 7:47 AM 10/13/2019 5:12 PM Care Teams Casting Room Helper Relationship Specialty Start Date End Date Reji Villafana DO PCP - General Internal Medicine 10/03/24
== END 2025-02-03 16:26 | disposition home or self-care (01) ==
PROVIDERS: Emergency Provider Emergency Medicine; PCP Internal Medicine
DX: S39.012A Strain of muscle, fascia and tendon of lower back, initial encounter (principal); S63.502A Unspecified sprain of left wrist, initial encounter; I10 Essential (primary) hypertension; M32.9 Systemic lupus erythematosus, unspecified; M47.816 Spondylosis without myelopathy or radiculopathy, lumbar region; M06.09 Rheumatoid arthritis without rheumatoid factor, multiple sites; F32.A Depression, unspecified; F41.9 Anxiety disorder, unspecified; Z77.22 Contact with and (suspected) exposure to environmental tobacco smoke (acute) (chronic); Z79.899 Other long term (current) drug therapy; Y04.2XXA Assault by strike against or bumped into by another person, initial encounter
CPT/HCPCS: 72100; 73110; 99284